=== PATIENT | female | born 1940 | race Caucasian/White ===

== ENCOUNTER → 2016-04-20 | Outpatient (CLI) | payer BC ==
[~2016-04-20] MED LIST: ACET-1256 PO; AMOX250C3 PO; ASPCH81 PO; ATOR-26 PO; CHOL100010 PO; DOCU100C PO; FOLI1TAB7 PO; FURO-85 PO; GABA-112 PO; ISOS60TA25 PO; LISI-461 PO; METH2.5T PO; METO50TA7 PO; MULT-280 PO; NITR0.4S UT; PRLSR20 PO; SYN75 PO
[2016-04-20 12:32] LABS: BASO % 0.2 %; BASO ABS # 0.01 K/uL (0-0.2); COMPLETE YES; HEMATOCRIT 35.6 % (37-47); IG% 0.2 %; LYMPH % 29.7 %; LYMPH ABS # 1.25 K/uL (1.2-3.4); MEAN CELL VOLUME 97.3 fL (80-100); MEAN CORPUSCULAR HEMOGLOBIN 33.6 pg (25-34); MEAN CORPUSCULAR HGB CONC 34.6 g/dl (32-36); MEAN PLATELET VOLUME 9.2 fL (7.4-10.4); MONO % 7.8 %; NEUT % 61.1 %; PLATELET COUNT 190 K/uL (130-400); RED BLOOD COUNT 3.66 M/uL (4.2-5.4); WHITE BLOOD COUNT 4.21 K/uL (4.8-10.8)
[2016-04-20 17:52] LABS: BLOOD UREA NITROGEN 17 mg/dl (7-18); BUN/CREATININE RATIO 16.8 (10-20); CARBON DIOXIDE 27 mmol/L (21-32); CHLORIDE 106 mmol/L (98-107); CHOLESTEROL 150 mg/dl (0-200); CHOLESTEROL/HDL RATIO 3.2; GLUCOSE 82 mg/dl (70-99); HDL CHOLESTEROL 47 mg/dl; LDL CHOLESTEROL CALCULATED 74 mg/dl; POTASSIUM 3.9 mmol/L (3.5-5.1); SODIUM 144 mmol/L (136-145); TRIGLYCERIDES 147 mg/dl (0-150); VERY LOW DENSITY LIPOPROT CALC 29 mg/dl
== END | disposition home or self-care (01) ==
LOC: C.LABPBG 11:11
PROVIDERS: ATTEND Internal Medicine Rheumatology
DX: M06.9 Rheumatoid arthritis, unspecified (principal); Z79.899 Other long term (current) drug therapy; E78.5 Hyperlipidemia, unspecified; D72.819 Decreased white blood cell count, unspecified; I10 Essential (primary) hypertension; E03.9 Hypothyroidism, unspecified; E55.9 Vitamin D deficiency, unspecified; D64.9 Anemia, unspecified

== ENCOUNTER → 2016-06-23 | Outpatient (CLI) | payer BC ==
--- NOTE | 2016-06-23 12:59 | DIAGNOSTIC IMAGING REPORT ---
EXAMINATION: PELVIC ULTRASOUND CLINICAL HISTORY: OVARIAN CYSTS, 6MOS F/U COMPARISON STUDY: 12/24/2015 FINDINGS: The uterus measured 6.8 x 1.6 x 3.2 cm. The endometrial stripe measured 3 mm. There is trace fluid within the endometrial cavity. There is a 36 x 25 x 23 mm cystic lesion within the right adnexa, likely ovarian. This appears minimally larger than on the prior study. The left was nonvisualized. There is no ultrasonographic evidence of ovarian torsion. It should be noted that ovarian torsion can be present with normal Doppler ultrasonographic findings. There was no evidence of pathologic free pelvic fluid. IMPRESSION: 1. Slight interval increase in the 36 x 25 x 23 mm cystic right adnexal lesion, likely ovarian. There is no mural nodularity or significant septation. 2. Nonvisualization of the left ovary Electronically signed by: Nasir Bae M.D. 06/23/2016 12:57 PM Dictated Date/Time: 06/23/2016 12:54 PM
== END | disposition home or self-care (01) ==
LOC: C.ULTRBC 12:03
PROVIDERS: ATTEND Physician Assistant Medical
DX: N83.209 Unspecified ovarian cyst, unspecified side (principal)

== ENCOUNTER → 2016-07-17 | Outpatient (CLI) | payer BC ==
[2016-07-17 12:12] LABS: BASO % 0.4 %; BASO ABS # 0.02 K/uL (0-0.2); COMPLETE YES; EOS % 1.2 %; HEMATOCRIT 36.6 % (37-47); IG% 0.2 %; LYMPH % 26.4 %; MEAN CELL VOLUME 100.8 fL (80-100); MEAN CORPUSCULAR HEMOGLOBIN 33.9 pg (25-34); MEAN CORPUSCULAR HGB CONC 33.6 g/dl (32-36); MEAN PLATELET VOLUME 9.3 fL (7.4-10.4); MONO % 7.1 %; NEUT % 64.7 %; PLATELET COUNT 204 K/uL (130-400); RED BLOOD COUNT 3.63 M/uL (4.2-5.4); WHITE BLOOD COUNT 4.92 K/uL (4.8-10.8)
[2016-07-17 13:53] LABS: ALT/SGPT 25 U/L (12-78)
[2016-07-17 13:56] LABS: ALKALINE PHOSPHATASE 102 U/L (45-117); AST/SGOT 20 U/L (15-37)
== END | disposition home or self-care (01) ==
LOC: C.LABPBG 10:34
PROVIDERS: ATTEND Internal Medicine Geriatric Medicine
DX: M06.9 Rheumatoid arthritis, unspecified (principal); Z79.899 Other long term (current) drug therapy; D64.9 Anemia, unspecified

== ENCOUNTER → 2016-08-03 | Outpatient (CLI) | payer BC | END | disposition home or self-care (01) | LOC: C.LABPBG 12:46 | PROVIDERS: ATTEND Obstetrics & Gynecology | DX: N83.209 Unspecified ovarian cyst, unspecified side (principal) ==

== ENCOUNTER → 2016-08-05 | Outpatient (CLI) | payer BC | END | disposition home or self-care (01) | LOC: C.PAPS 18:19 | PROVIDERS: ATTEND Obstetrics & Gynecology | DX: Z01.419 Encounter for gynecological examination (general) (routine) without abnormal findings (principal) ==

== ENCOUNTER → 2016-08-31 | Outpatient (CLI) | payer BC ==
[2016-08-31 12:11] LABS: BASO % 0.2 %; BASO ABS # 0.01 K/uL (0-0.2); COMPLETE YES; HEMATOCRIT 35.9 % (37-47); IG% 0.2 %; LYMPH % 24.4 %; LYMPH ABS # 1.25 K/uL (1.2-3.4); MEAN CELL VOLUME 101.1 fL (80-100); MEAN CORPUSCULAR HEMOGLOBIN 34.1 pg (25-34); MEAN CORPUSCULAR HGB CONC 33.7 g/dl (32-36); MEAN PLATELET VOLUME 9.2 fL (7.4-10.4); MONO % 9.6 %; NEUT % 64.6 %; PLATELET COUNT 170 K/uL (130-400); RED BLOOD COUNT 3.55 M/uL (4.2-5.4); WHITE BLOOD COUNT 5.13 K/uL (4.8-10.8)
[2016-08-31 12:53] LABS: ALT/SGPT 27 U/L (12-78)
[2016-08-31 12:55] LABS: ALKALINE PHOSPHATASE 94 U/L (45-117); AST/SGOT 19 U/L (15-37)
== END | disposition home or self-care (01) ==
LOC: C.LAB1850 11:17
PROVIDERS: ATTEND Internal Medicine Rheumatology
DX: M06.9 Rheumatoid arthritis, unspecified (principal); M25.512 Pain in left shoulder; Z79.899 Other long term (current) drug therapy

== ENCOUNTER 2016-11-19 22:40 | Emergency (ER) | payer BC ==
[~2016-11-19] VITALS: Ht 170.2 cm; Wt 98.7 kg
[2016-11-19 23:20] VITALS: TEMP 36.8; Ht 170.2 cm; Wt 98.7 kg
--- NOTE | 2016-11-20 02:17 | EMERGENCY ROOM VISIT NOTE ---
ED Visit Note First contact with patient: 23:32 I saw this patient in conjunction with Agnieszka Vázquez PA-C. I agree with her decision making and treatment plan.
--- NOTE | 2016-11-20 02:24 | EMERGENCY ROOM VISIT NOTE ---
History First contact with patient: 23:32 Chief Complaint: FALL Stated Complaint: FALL, HIT HEAD,HEADACHE, NOSE SORE, L FOOT PAIN History of Present Illness The patient is a 76 year old female who presents to the Emergency Room with complaints of a fall. The patient states that she woke up from bed to go to the bathroom and tripped and fell, striking her face on her dresser. She also reports pain in the left arm and left foot. She reports the fall was mechanical and not associated with dizziness or lightheadedness. She rates her discomfort a 7/10. There was no loss of consciousness. The fall happened approximately 20 hours ago. Review of Systems A complete 10 point review of systems was reviewed with the patient with pertinent positives and negatives as per history of present illness. All else were negative. Social History Smoking Status: Never Smoker Marital Status: Current/Historical Medications Scheduled Acetaminophen (Tylenol), 1,000 MG PO TID Amoxicillin (Amoxil), 125 MG PO PRN UD Aspirin (Aspirin Tab-Chewable *), 81 MG PO DAILY Atorvastatin (Lipitor), 80 MG PO DAILY Cholecalciferol (Vitamin D), 2,000 INTER.UNIT PO DAILY Folic Acid (Folvite), 1 MG PO DAILY Furosemide (Lasix), 40 MG PO DAILY Gabapentin (Neurontin), 100 MG PO TID Isosorbide Mononitrate Ext Rel (Imdur Ext Rel), 60 MG PO QAM Levothyroxine (Synthroid *), 0.075 MG PO DAILY Lisinopril (Zestril), 10 MG PO DAILY Methotrexate (Methotrexate), 7 TABS PO WK Metoprolol Succ (Toprol Xl) (Toprol-Xl), 50 MG PO BID Multiple Vitamins W/ Minerals (Womens Multivitamin Plus), 1 TAB PO DAILY Nitroglycerin (Nitrostat), 0.4 MG UT PRN Omeprazole (Prilosec), 20 MG PO DAILY Scheduled PRN Docusate Sodium (Stool Softener), 100 MG PO DAILY PRN for Constipation Physical Exam Vital Signs Date Time Temp Pulse Resp B/P (MAP) Pulse Ox O2 Delivery O2 Flow Rate FiO2 11/20/16 02:39 78 145/88 97 11/19/16 23:20 36.8 104 20 138/84 96 Room Air Physical Exam VITALS: Vitals are noted on the nurse's note and reviewed by myself. Vital signs stable. GENERAL: This is a 76-year-old female, in no acute distress, nondiaphoretic, well-developed well-nourished. SKIN: There are abrasions to the right forehead and nose. HEAD: Normocephalic atraumatic. EARS: External auditory canals clear, tympanic membranes pearly juan without erythema or effusion bilaterally. No hemotympanum. EYES: Pupils equal round and reactive to light and accommodation. Conjunctivae without injection, sclerae without icterus. Extraocular movements intact. NECK: Supple without nuchal rigidity. Cervical spine is nontender. HEART: Regular rate and rhythm without murmurs gallops or rubs. LUNGS: Clear to auscultation bilaterally without wheezes, rales or rhonchi. MUSCULOSKELETAL: There is tenderness to palpation of the anterior left shoulder , left forearm and left foot. There is bruising to the left first MTP. Otherwise no ecchymosis, edema or erythema. NEURO: Patient was alert and oriented to person place and time. Normal sensation to light and sharp touch. No focal neurological deficits. Medical Decision & Procedures ER Provider Diagnostic Interpretation: CT HEAD: No intracranial hemorrhage or skull fracture. Mild extracranial soft tissue swelling. Involutional changes with small vessel disease. Tiny dystrophic calcifications Cataract surgery. CT C SPINE: No fracture or malalignment. Cervical spondylosis. Radiologist: Tylor Cam MD LEFT SHOULDER X-RAY: Degenerative changes. No acute fractures or dislocations. LEFT FOREARM X-RAY: No acute fractures. LEFT FOOT X-RAY: No acute fractures or dislocations. Medical Decision Differential diagnosis includes fracture, contusion, dislocation, sprain, among others. The patient was evaluated as above. Multiple imaging studies were performed as above. There were no obvious fractures identified on x-rays. CT of the head and neck were negative for acute findings. Patient was reassured and instructed to follow-up with her primary care provider. She was placed in a postoperative shoe. She verbalized understanding of my assessment and treatment plan and was discharged home in good condition. The patient was independently evaluated by Dr. Dong, ED attending physician, who agreed with my assessment and treatment plan. Medication Reconcilliation Current Medication List: was personally reviewed by me Blood Pressure Screening Patient's blood pressure: Elevated blood pressure Blood pressure disposition: Elevated BP felt to be situational Impression Primary Impression: Fall Additional Impression: Contusion of multiple sites Departure Information Dispostion Home / Self-Care Condition GOOD Referrals Royer Grace M.D. (PCP) Patient Instructions My [facility] Additional Instructions For pain control, you can use the following itdx-lqy-vonoyza medicines (if >12 yo): - Regular strength (325mg/tab) Tylenol (acetaminophen) 2 tabs every 4-6 hours as needed. Do not exceed 12 tablets in a 24 hour period. Avoid taking more than 4 grams (4000 mg) of Tylenol per day. This includes any other sources of acetaminophen you may take on a regular basis. - Regular strength (200 mg/tab) Advil (ibuprofen) 1-2 tabs every 4-6 hours as needed. Do not exceed a dose of 3200 mg per day. Apply ice to the areas of pain and bruising. Wear the postoperative shoe as needed for foot pain and difficulty walking. Follow-up with your primary care provider within one week. Return here for any worsening or new/concerning symptoms. Problem Qualifiers Primary Impression: Fall Encounter type: initial encounter Qualified Codes: W19.XXXA - Unspecified fall, initial encounter
[2016-11-20 02:39] VITALS: BP 145/88; PULSE 78; O2SAT 97
--- NOTE | 2016-11-20 06:32 | DIAGNOSTIC IMAGING REPORT ---
CT OF THE CERVICAL SPINE CLINICAL HISTORY: Neck pain status post trauma COMPARISON STUDY: No previous studies for comparison. CT DOSE: TECHNIQUE: CT scan of the cervical spine was performed from the skull base to the thoracic inlet. Images are reviewed in the axial, sagittal, and coronal planes. IV contrast was not administered for this examination. A dose lowering technique was utilized adhering to the principles of ALARA. FINDINGS: The visualized portions of the lung apices reveal no evidence of pneumothorax. The prevertebral soft tissues are normal. No fractures or subluxations are visualized. There are moderately advanced multilevel degenerative changes IMPRESSION: No evidence of acute fracture or traumatic subluxation. Electronically signed by: Nasir Bae M.D. 11/20/2016 6:31 AM Dictated Date/Time: 11/20/2016 6:29 AM
--- NOTE | 2016-11-20 06:49 | DIAGNOSTIC IMAGING REPORT ---
L SHOULDER MIN 2 VIEWS ROUTINE CLINICAL HISTORY: Left shoulder pain status post trauma COMPARISON: None. DISCUSSION: No acute fractures or dislocations are visualized. There is narrowing of the humeral acromial distance suggesting chronic rotator cuff tear/degeneration. IMPRESSION: 1. No acute fractures 2. Radiographic evidence of chronic rotator cuff tear/degeneration Electronically signed by: Nasir Bae M.D. 11/20/2016 6:48 AM Dictated Date/Time: 11/20/2016 6:47 AM
--- NOTE | 2016-11-20 06:50 | DIAGNOSTIC IMAGING REPORT ---
L FOREARM 2 VIEWS ROUTINE CLINICAL HISTORY: Left forearm pain status post trauma COMPARISON: None. DISCUSSION: No acute fractures are visualized. There are calcifications the region triangle fibrocartilage. There are multiple soft tissue calcifications within the forearm. IMPRESSION: No acute fractures identified. Electronically signed by: Nasir Bae M.D. 11/20/2016 6:49 AM Dictated Date/Time: 11/20/2016 6:48 AM
--- NOTE | 2016-11-20 06:51 | DIAGNOSTIC IMAGING REPORT ---
L FOOT MIN 3 VIEWS ROUTINE CLINICAL HISTORY: Left foot pain status post trauma COMPARISON: None. DISCUSSION: The bones are osteopenic. There are vascular calcifications present. There is a hallux valgus deformity. No acute fractures or subluxations are visualized. IMPRESSION: No acute fractures or subluxations identified. Electronically signed by: Nasir Bae M.D. 11/20/2016 6:50 AM Dictated Date/Time: 11/20/2016 6:49 AM
--- NOTE | 2016-11-20 07:04 | DIAGNOSTIC IMAGING REPORT ---
CT SCAN OF THE BRAIN WITHOUT IV CONTRAST CLINICAL HISTORY: Fall with head injury. COMPARISON STUDY: CT of the brain dated 03/13/2009. TECHNIQUE: Unenhanced axial CT scan of the brain is performed from the vertex to the skull base. CT DOSE: 863.52 mGy.cm FINDINGS: Brain parenchyma: There are age-related involutional changes noting qycb-gc-qxehsonn patchy subcortical and periventricular microangiopathic change. There is no hemorrhage, mass effect, or evidence of acute territorial ischemia by CT criteria. Daily-white matter is preserved. No extra-axial fluid collection is seen. Ventricles, sulci, cisterns: Prominent secondary to involutional change. Intracranial vasculature: There is atherosclerotic calcification of the cavernous carotid and vertebral arteries. Calvarium: The skeletal structures are osteopenic. There is no depressed calvarial fracture. Sinuses and mastoids: The visualized paranasal sinuses are clear. The mastoid air cells are well pneumatized. Orbits: The bony orbits are grossly intact. There are bilateral ocular lens implants. IMPRESSION: There is no hemorrhage, mass effect, or evidence of acute territorial ischemia by CT criteria. Electronically signed by: Lebron Baron M.D. 11/20/2016 7:03 AM Dictated Date/Time: 11/20/2016 7:01 AM
== END 2016-11-20 02:40 | disposition home or self-care (01) ==
LOC: C.EDB 22:42 → C.EDD 11-20 02:40
DX: T14.8 Other injury of unspecified body region (principal); S00.31XA Abrasion of nose, initial encounter; S00.81XA Abrasion of other part of head, initial encounter; R42 Dizziness and giddiness; Z79.82 Long term (current) use of aspirin; Z79.899 Other long term (current) drug therapy; W01.190A Fall on same level from slipping, tripping and stumbling with subsequent striking against furniture, initial encounter

== ENCOUNTER → 2016-12-17 | Outpatient (CLI) | payer BC | END | disposition home or self-care (01) | LOC: C.MAMM 11:13 | PROVIDERS: ATTEND Internal Medicine Geriatric Medicine | DX: M19.90 Unspecified osteoarthritis, unspecified site (principal); M81.8 Other osteoporosis without current pathological fracture; M85.851 Other specified disorders of bone density and structure, right thigh; M85.839 Other specified disorders of bone density and structure, unspecified forearm ==

== ENCOUNTER → 2017-01-26 | Outpatient (CLI) | payer BC ==
[~2017-01-26] MED LIST changes: -GABA-112 PO
--- NOTE | 2017-01-27 13:43 | MAMMOGRAPHY REPORT ---
BILATERAL DIGITAL SCREENING MAMMOGRAM TOMOSYNTHESIS WITH CAD: 01/26/2017 CLINICAL HISTORY: Routine screening. During the patient's screening exam appointment, she reported a new lump in the anterior left breast and a triangular skin sticker was placed in the area of concern prior to mammography. TECHNIQUE: Bilateral breast tomosynthesis in addition to standard 2D mammography was performed. Curre nt study was also evaluated with a Computer Aided Detection (CAD) system. COMPARISON: Comparison is made to exams dated: 01/18/2015 mammogram, 01/17/2014 mammogram, 3 mammogram, 12/31/2011 mammogram, 12/15/2010 mammogram, and 11/11/2009 mammogram - [facility]. BREAST COMPOSITION: There are scattered areas of fibroglandular density in both breasts. FINDINGS: A triangular skin palpable marker overlies the upper outer anterior left breast, denoting t he new palpable lump pointed out by the patient. There are coarse benign calcifications in both mendy sts, with the largest conglomerate of coarse calcification in the left upper outer anterior breast me asuring 4.4 cm in maximum dimension. This could correspond to the palpable concern although complete workup for a new palpable lump is mammogram plus ultrasound. Therefore, additional targeted ultraso und and possible additional mammographic views are recommended for the new palpable concern in the le ft breast. No other suspicious mass, architectural distortion or cluster of microcalcifications is seen bilatera lly. IMPRESSION: ACR BI-RADS CATEGORY 0: INCOMPLETE EVALUATION: NEED ADDITIONAL IMAGING EVALUATION The bilateral mammograms are stable, with benign coarse calcifications bilaterally. However, the pat ient reports a new palpable lump in the upper outer anterior left breast for which additional targete d ultrasound and possible additional mammographic views are recommended. The patient will be called to schedule an appointment. Approximately 10% of breast cancers are not detected with mammography. A negative mammographic report should not delay biopsy if a clinically suggestive mass is present. Nazia Easley M.D. ay/:01/26/2017 15:28:47 Director Of Construction: Roxi FERNANDEZ)(Kaylyn), [facility] letter sent: Addl Imaging 0 BI-RADS Code: ACR BI-RADS Category 0: Incomplete Evaluation: Need Additional Imaging Evaluation
== END | disposition home or self-care (01) ==
LOC: C.MAMM 11:49
PROVIDERS: ATTEND Internal Medicine Geriatric Medicine
DX: Z12.31 Encounter for screening mammogram for malignant neoplasm of breast (principal); R92.0 Mammographic microcalcification found on diagnostic imaging of breast

== ENCOUNTER → 2017-02-02 | Outpatient (CLI) | payer BC ==
--- NOTE | 2017-02-02 14:26 | MAMMOGRAPHY REPORT ---
ULTRASOUND OF LEFT BREAST: 02/02/2017 CLINICAL HISTORY: 76-year-old woman presents with a 1-1/2 week history of new hard lump in the anteri or left breast. No skin erythema or nipple discharge. Family history of breast cancer = mother and aunt. COMPARISON: Comparison is made to exams dated: 01/21/2016 mammogram, 01/18/2015 mammogram, 4 mammogram, 01/16/2013 mammogram, 12/31/2011 mammogram, and 12/15/2010 mammogram - [facility]. FINDINGS: First the left breast with evaluated with visual inspection and palpation in the area of p alpable lump pointed out by the patient. She reports an ovoid 4 cm lump in the retroareolar extendin g into the 3:00 axes of the left breast. On palpation, there is a firm 5 x 2 cm mass. On ultrasound , there is a multilobulated hypoechoic shadowing mass. The anterior/superficial borders of this shad owing mass demonstrates thick linear and curvilinear echogenic material representing calcification, a nd this corresponds to the multilobulated coarse/popcorn calcification seen in the anterior subareola r left breast mammographically. This has been present on prior mammograms dating back to at least 18 11. There is a similar somewhat smaller popcorn calcification in the anterior subareolar right breas t. For comparison purposes the right breast was palpated in a similar location and a firm mass was also identified there, which was pointed out by the patient, and so she knows this represents a benign tye cification. IMPRESSION: ACR BI-RADS CATEGORY 2: BENIGN 1. The newly identified palpable lump in the 3:00 anterior and retroareolar right breast corresponds to a benign popcorn calcification. A similar, slightly smaller coarse, popcorn calcification is als o present in the right breast, which was also pointed out to the patient. There is no targeted sonog raphic evidence of malignancy. Recommend routine screening tomosynthesis mammography in one year. Nazia Easley M.D. ay/:02/02/2017 11:03:03 Deli Slicer: Dr. Nazia Easley, [facility] letter sent: Normal 1/2 BI-RADS Code: ACR BI-RADS Category 2: Benign
== END | disposition home or self-care (01) ==
LOC: C.MAMM 10:03
PROVIDERS: ATTEND Internal Medicine Geriatric Medicine
DX: R92.1 Mammographic calcification found on diagnostic imaging of breast (principal)

== ENCOUNTER 2017-02-13 16:44 | Emergency (ER) | payer BC ==
[~2017-02-13] VITALS: Ht 170.2 cm; Wt 98.5 kg
[~2017-02-13 16:44] MED LIST changes: -FOLI1TAB7 PO; +FOLI1TAB8 PO
[2017-02-13 16:53] VITALS: O2SAT 99
[2017-02-13] MEDS ORDERED: SODIUM CHLORIDE 0.9% 1000ML 1,000 ML IV STA (16:56)
[2017-02-13] MEDS ORDERED: ONDANSETRON INJ 2 MG/ML 2 ML VIAL IV STA (16:56)
[2017-02-13] MEDS ORDERED: FAMOTIDINE 20MG/5ML IV PUSH IV STA (16:56)
[2017-02-13] MEDS ORDERED: DiphenhydrAMINE HCL 50 MG/ML VIAL IV STA (16:56)
[2017-02-13 16:59] VITALS: TEMP 36.6; Ht 170.2 cm; Wt 98.5 kg
[2017-02-13] MEDS ORDERED: OPTIRAY 320 IV PRN (17:15)
[2017-02-13] MEDS ORDERED: AMOX500C3 PO (17:19)
[2017-02-13] MEDS ORDERED: LISI5TAB PO (17:21)
[2017-02-13 17:24] LABS: BASO % 0.2 %; BASO ABS # 0.01 K/uL (0-0.2); COMPLETE YES; EOS % 0.4 %; HEMATOCRIT 38.4 % (37-47); IG% 0.2 %; LYMPH ABS # 1.31 K/uL (1.2-3.4); MEAN CELL VOLUME 98.2 fL (80-100); MEAN CORPUSCULAR HGB CONC 34.6 g/dl (32-36); MEAN PLATELET VOLUME 9.6 fL (7.4-10.4); MONO % 6.5 %; NEUT % 67.7 %; PLATELET COUNT 201 K/uL (130-400); RED BLOOD COUNT 3.91 M/uL (4.2-5.4); WHITE BLOOD COUNT 5.23 K/uL (4.8-10.8)
[2017-02-13] MEDS ORDERED: ZOLE5INJ IV (17:25)
--- NOTE | 2017-02-13 17:25 | EMERGENCY ROOM VISIT NOTE ---
History Report prepared by Bip[place]: All Bass Under the Supervision of: Dr. Sudeep Wheeler M.D. First contact with patient: 16:45 Stated Complaint: VERTIGO SX History of Present Illness The patient is a 76 year old female who presents to the Emergency Room with complaints of intermittent vomiting that began around 2330 last night. She states that her symptoms are worsened with moving her head and sitting up. The patient states that her symptoms are relieved with sitting still. The patient reports that last night she noticed if she sat up, the room would spin and she would become dizzy. She states that following these symptoms, she would become diaphoretic and clammy. The patient states that she would then become nauseous and vomit. She states that since last night, these symptoms have occurred about 6 more times. She states that she took Tylenol at 1200, but denies any relief of symptoms. The patient states that because her symptoms have not resolved, she decided to come to the ED. She reports that she takes 81 mg of Aspirin and a stool softener daily, but denies taking any medications today. The patient denies previous symptoms in the past, shortness of breath, chest pain, diarrhea , and headaches. Source of History: patient Onset: 2329 last night Position: other (global) Quality: other (global) Timing: intermittent Modifying Factors (Worsening): other (sitting up, moving head) Modifying Factors (Relieving): tylenol, other (sitting still) Associated Symptoms: + diaphoresis, + nausea, + vomiting, No headache, No chest pain, No SOB, No diarrhea Note: Associated symptoms include: dizziness. Review of Systems See HPI for pertinent positives and negatives. A total of ten systems were reviewed and were otherwise negative. Past Medical & Surgical Medical Problems: (1) Heart disease (2) Hypertension Family History Cancer Diabetes mellitus Gallbladder disease Heart disease Hypertension Lung disease Social History Smoking Status: Never Smoker Alcohol Use: none Drug Use: none Marital Status: Housing Status: lives with significant other Occupation Status: retired Current/Historical Medications Scheduled Acetaminophen (Tylenol), 1,000 MG PO TID Aspirin (Aspirin Tab-Chewable *), 81 MG PO DAILY Atorvastatin (Lipitor), 80 MG PO DAILY Cholecalciferol (Vitamin D), 2,000 INTER.UNIT PO DAILY Docusate Sodium (Stool Softener), 100 MG PO DAILY Folic Acid (Folvite), 1 MG PO BID Furosemide (Lasix), 20 MG PO DAILY Isosorbide Mononitrate Ext Rel (Imdur Ext Rel), 60 MG PO QAM Levothyroxine (Synthroid *), 0.075 MG PO DAILY Lisinopril (Prinivil), 1 TAB PO DAILY Methotrexate (Methotrexate), 12.5 TABS PO WK Metoprolol Succ (Toprol Xl) (Toprol-Xl), 50 MG PO BID Multiple Vitamins W/ Minerals (Womens Multivitamin Plus), 1 TAB PO DAILY Nitroglycerin (Nitrostat), 0.4 MG UT PRN Omeprazole (Prilosec), 20 MG PO DAILY Ondasetron Odt (Zofran Odt), 4 MG SL Q6H Zoledronic Acid (Reclast), 5 MG IV YEARLY Scheduled PRN Amoxicillin (Amoxil), 1 CAP PO BID PRN for CELLULITIS Meclizine Hcl (Meclizine Hcl), 25 MG PO TID PRN for Dizziness Allergies Coded Allergies: Gabapentin (Verified Allergy, Severe, SEVERE ENTIRE BODY SWELLING, DIFFICULTY BREATHING, 02/13/17) HARD TO AWAKEN Codeine (Verified Allergy, Unknown, 02/13/17) Morphine (Verified Adverse Reaction, Mild, UPSET STOMACH, PT STATES SHE WON'T TAKE 01/25/07, 02/13/17) Physical Exam Vital Signs Date Time Temp Pulse Resp B/P (MAP) Pulse Ox O2 Delivery O2 Flow Rate FiO2 02/13/17 20:54 99 18 149/95 97 02/13/17 19:15 78 02/13/17 19:11 77 18 114/51 98 Room Air 02/13/17 18:29 87 17 177/89 98 02/13/17 16:59 36.6 90 12 149/98 100 Room Air 02/13/17 16:59 78 16 98 02/13/17 16:53 99 Room Air 02/13/17 16:49 149/98 Physical Exam GENERAL: Awake, alert, uncomfortable-appearing, in no distress, nauseated and vomiting. HENT: Normocephalic, atraumatic. Oropharynx unremarkable. EYES: Normal conjunctiva. Sclera non-icteric. NECK: Supple. No nuchal rigidity. FROM. No JVD. RESPIRATORY: Clear to auscultation. CARDIAC: Regular rate, normal rhythm. Extremities warm and well perfused. Pulses equal. ABDOMEN: Soft, non-distended. No tenderness to palpation. No rebound or guarding. No masses. RECTAL: Deferred. MUSCULOSKELETAL: Chest examination reveals no tenderness. The back is symmetrical on inspection without obvious abnormality. There is no CVA tenderness to palpation. No joint edema. LOWER EXTREMITIES: Calves are equal size bilaterally and non-tender. No edema. No discoloration. NEURO: Normal sensorium. No sensory or motor deficits noted. normal cerebellar function with [id number], alternating palms, [id number]. SKIN: No rash or jaundice noted. Medical Decision & Procedures ER Provider Diagnostic Interpretation: Radiology results as stated below per my review and radiologist interpretation: CHEST ONE VIEW PORTABLE HISTORY: Generalized abdominal pain. COMPARISON: Chest 09/23/2009. FINDINGS: Bibasilar interstitial thickening is not significantly changed. This is likely chronic. No new focal lung consolidations to suggest pneumonia. No evidence for pulmonary edema. The heart is borderline enlarged. This remains unchanged. No pleural effusions. No pneumothorax. IMPRESSION: No significant change compared to the prior study. No acute process. Chronic bibasilar interstitial thickening persists. Electronically signed by: Venu Wallace M.D. 02/13/2017 5:39 PM Dictated Date/Time: 02/13/2017 5:37 PM HEAD CTA HISTORY: Vertigo. TECHNIQUE: Multiaxial CT images of the head were performed both before and after the intravenous administration of contrast to evaluate the major cerebral vessels. Maximum intensity projection images were also obtained. A dose lowering technique was utilized adhering to the principles of ALARA. COMPARISON: None. FINDINGS: There is no mass, hematoma, midline shift, or acute infarct. Visualized intracranial internal carotid arteries, distal vertebral arteries, and basilar artery are widely patent. There is no significant stenosis, occlusion, or aneurysm seen within the bilateral ACAs, MCAs, or director digital strategy. Mild atrophy and microvascular ischemic changes. Moderate calcified plaque within the bilateral carotid siphons. IMPRESSION: No significant stenosis, occlusion, or aneurysm within the [place]. No acute infarct identified. Electronically signed by: Venu Wallace M.D. 02/13/2017 6:13 PM Dictated Date/Time: 02/13/2017 6:08 PM NECK CTA HISTORY: Vertigo. TECHNIQUE: Multiaxial CT images of the neck were performed following the intravenous administration of contrast to evaluate the major cervical vessels. Maximum intensity projection images were also obtained. All measurements were calculated based on NASCET criteria. A dose lowering technique was utilized adhering to the principles of ALARA. COMPARISON STUDY: None. FINDINGS: The aortic arch and proximal great vessels are widely patent. The bilateral vertebral arteries and right internal carotid artery are widely patent. There is up to 60-70% stenosis seen within the distal 8 mm of the right common carotid artery. There is a 3 cm segment of the distal left common carotid artery and proximal left internal carotid artery which demonstrates multifocal areas of 60-70% stenosis. The mid to distal left internal carotid artery is patent. Bilateral internal jugular veins appear patent. IMPRESSION: 1. There is 60-70% stenosis within the distal 8 mm of the right common carotid artery. 2. There is a 3 cm segment of the distal left common carotid artery and proximal left internal carotid artery which demonstrate multifocal areas of 60-70% stenosis. 3. The bilateral vertebral arteries are patent. Electronically signed by: Venu Wallace M.D. 02/13/2017 6:20 PM Dictated Date/Time: 02/13/2017 6:16 PM Laboratory Results 02/13/17 16:10 Red Blood Count 3.91, Mean Corpuscular Volume 98.2, Mean Corpuscular Hemoglobin 34.0, Mean Corpuscular Hemoglobin Concent 34.6, Mean Platelet Volume 9.6, Neutrophils (%) (Auto) 67.7, Lymphocytes (%) (Auto) 25.0, Monocytes (%) (Auto) 6.5, Eosinophils (%) (Auto) 0.4, Basophils (%) (Auto) 0.2, Neutrophils # (Auto) 3.54, Lymphocytes # (Auto) 1.31, Monocytes # (Auto) 0.34, Eosinophils # (Auto) 0.02, Basophils # (Auto) 0.01 02/13/17 16:10 Test 02/13/17 16:10 02/13/17 18:30 White Blood Count 5.23 K/uL (4.8-10.8) Red Blood Count 3.91 M/uL (4.2-5.4) Hemoglobin 13.3 g/dL (12.0-16.0) Hematocrit 38.4 % (37-47) Mean Corpuscular Volume 98.2 fL (80-100) Mean Corpuscular Hemoglobin 34.0 pg (25-34) Mean Corpuscular Hemoglobin Concent 34.6 g/dl (32-36) Platelet Count 201 K/uL (130-400) Mean Platelet Volume 9.6 fL (7.4-10.4) Neutrophils (%) (Auto) 67.7 % Lymphocytes (%) (Auto) 25.0 % Monocytes (%) (Auto) 6.5 % Eosinophils (%) (Auto) 0.4 % Basophils (%) (Auto) 0.2 % Neutrophils # (Auto) 3.54 K/uL (1.4-6.5) Lymphocytes # (Auto) 1.31 K/uL (1.2-3.4) Monocytes # (Auto) 0.34 K/uL (0.11-0.59) Eosinophils # (Auto) 0.02 K/uL (0-0.5) Basophils # (Auto) 0.01 K/uL (0-0.2) RDW Standard Deviation 51.4 fL (36.4-46.3) RDW Coefficient of Variation 14.6 % (11.5-14.5) Immature Granulocyte % (Auto) 0.2 % Immature Granulocyte # (Auto) 0.01 K/uL (0.00-0.02) Anion Gap 8.0 mmol/L (3-11) Est Creatinine Clear Calc Drug Dose 65.8 ml/min Estimated GFR () 73.5 Estimated GFR (Non- 63.4 BUN/Creatinine Ratio 12.2 (10-20) Calcium Level 9.5 mg/dl (8.5-10.1) Total Bilirubin 0.5 mg/dl (0.2-1) Direct Bilirubin 0.1 mg/dl (0-0.2) Aspartate Amino Transf (AST/SGOT) 25 U/L (15-37) Alanine Aminotransferase (ALT/SGPT) 26 U/L (12-78) Alkaline Phosphatase 99 U/L (45-117) Troponin I < 0.015 ng/ml (0-0.045) Pro-B-Type Natriuretic Peptide 373 pg/ml (0-900) Total Protein 7.6 gm/dl (6.4-8.2) Albumin 4.2 gm/dl (3.4-5.0) Lipase 118 U/L (73-393) Urine Color YELLOW Urine Appearance CLEAR (CLEAR) Urine pH 8.0 (4.5-7.5) Urine Specific [place] 1.030 (1.000-1.030) Urine Protein NEG (NEG) Urine Glucose (UA) NEG (NEG) Urine Ketones NEG (NEG) Urine Occult Blood NEG (NEG) Urine Nitrite NEG (NEG) Urine Bilirubin NEG (NEG) Urine Urobilinogen NEG (NEG) Urine Leukocyte Esterase SMALL (NEG) Urine WBC (Auto) 1-5 /hpf (0-5) Urine RBC (Auto) 0-4 /hpf (0-4) Urine Hyaline Casts (Auto) 0 /lpf (0-5) Urine Epithelial Cells (Auto) >30 /lpf (0-5) Urine Bacteria (Auto) NEG (NEG) Laboratory results reviewed by me Medications Administered Medications (Trade) Dose Ordered Sig/Lyn Route Start Time Stop Time Status Last Admin Dose Admin Sodium Chloride 1,000 ml @ 125 mls/hr Q8H STAT IV 02/13/17 16:56 02/13/17 21:31 DC 02/13/17 17:15 125 MLS/HR Ondansetron HCl (Zofran Inj) 4 mg NOW STAT IV 02/13/17 16:56 02/13/17 17:01 DC 02/13/17 17:15 4 MG Diphenhydramine HCl (Benadryl Inj) 25 mg NOW STAT IV 02/13/17 16:56 02/13/17 17:01 DC 02/13/17 17:15 25 MG Famotidine (Pepcid 20mg Iv Push) 20 mg NOW STAT IV 02/13/17 16:56 02/13/17 17:01 DC 02/13/17 17:15 20 MG Meclizine HCl (Antivert Tab) 50 mg NOW STAT PO 02/13/17 18:31 02/13/17 18:34 DC 02/13/17 18:53 50 MG ECG Indication: vomiting Rate (beats per minute): 78 Rhythm: sinus rhythm Findings: 1st degree AV block, no acute ischemic change, other (Normal axis) Comparison ECG Date: 09/23/09 Change: no significant change ED Course 1646: The patient was evaluated in room B10. A complete history and physical exam was performed. 1828: I reevaluated the patient and she is doing better but is still unsteady. 2020: I reevaluated the patient. Discussed results and discharge instructions: She verbalized understanding and agreement. The patient is ready for discharge. Medical Decision I reviewed the patient's past medical history, medications, and the nursing notes as described above. The patient's presentation and history were concerning for Peripheral v central vertigo, dehydration, electrolyte abnormality, gastroenteritis, gastritis, ACS, CHF, pneumonia, bronchitis, and arrhythmia. The patient is a 76-year-old woman presents to emergency department with vertigo and nausea vomiting since last night around 11:30 and woke up this morning with persistent symptoms per history of present illness. While the patient is uncomfortable but in no acute distress, afebrile with stable vital signs. Neurologically intact with no nystagmus however reproducible vertigo when sitting up. Chest x-ray unremarkable. Labs unremarkable including WBC and creatinine within normal limits. UA negative for infection. CTA of head and neck negative for any critical large vessel stenosis infarct. Patient was treated with IV fluids, Benadryl, meclizine with significant improvement in her symptoms able to ambulate at baseline. Thus, discussed with the patient that given her prolonged symptoms and negative CTA it is unlikely that her symptoms are related to a central cause such as stroke. However MRI would be the definitive test to rule this out. MRI initially ordered however unit technician not in-house and given the patient's improvement symptoms deferred at this time. Patient prefers to go home at this time given her improvement and if symptoms return she will come back to emergency department. Findings and plan for follow- up reviewed with patient. Patient agreeable and d/c'd per discharge instructions. Medication Reconcilliation Current Medication List: was personally reviewed by me Blood Pressure Screening Patient's blood pressure: Elevated blood pressure Blood pressure disposition: Referred to PCP Impression Primary Impression: Vertigo Scribe Attestation The scribe's documentation has been prepared under my direction and personally reviewed by me in its entirety. I confirm that the note above accurately reflects all work, treatment, procedures, and medical decision making performed by me. Departure Information Dispostion Home / Self-Care Prescriptions Ondasetron Odt (ZOFRAN ODT) 4 Mg Tab 4 MG SL Q6H for Nausea, #6 TAB Prov: Sudeep Wheeler M.D. 02/13/17 Meclizine Hcl (MECLIZINE HCL) 25 Mg Tab 25 MG PO TID Y for Dizziness, #21 TAB Prov: Sudeep Wheeler M.D. 02/13/17 Referrals No Doctor, Assigned (PCP) Patient Instructions ED Vertigo Unspecified, My [facility] Additional Instructions Please follow up with your primary care physician on Wednesday for re-evaluation. You likely have vertigo. Otherwise, your exam, EKG, chest xray, CT scan with contrast of your head and neck, and lab results did not show signs of an emergent condition at this time. Meclizine for vertigo as needed. Zofran for nausea as needed. Return to the emergency department for worsening symptoms as described in the accompanying instructions.
--- NOTE | 2017-02-13 17:40 | DIAGNOSTIC IMAGING REPORT ---
CHEST ONE VIEW PORTABLE HISTORY: Generalized abdominal pain. COMPARISON: Chest 09/23/2009. FINDINGS: Bibasilar interstitial thickening is not significantly changed. This is likely chronic. No new focal lung consolidations to suggest pneumonia. No evidence for pulmonary edema. The heart is borderline enlarged. This remains unchanged. No pleural effusions. No pneumothorax. IMPRESSION: No significant change compared to the prior study. No acute process. Chronic bibasilar interstitial thickening persists. Electronically signed by: Venu Wallace M.D. 02/13/2017 5:39 PM Dictated Date/Time: 02/13/2017 5:37 PM
[2017-02-13 17:42] LABS: ALT/SGPT 26 U/L (12-78); AST/SGOT 25 U/L (15-37); BLOOD UREA NITROGEN 11 mg/dl (7-18); BUN/CREATININE RATIO 12.2 (10-20); CALCIUM 9.5 mg/dl (8.5-10.1); CARBON DIOXIDE 26 mmol/L (21-32); CHLORIDE 107 mmol/L (98-107); CREATININE 0.89 mg/dl (0.60-1.20); GLUCOSE 107 mg/dl (70-99); POTASSIUM 4.1 mmol/L (3.5-5.1); SODIUM 141 mmol/L (136-145)
[2017-02-13 17:47] LABS: ALKALINE PHOSPHATASE 99 U/L (45-117)
--- NOTE | 2017-02-13 18:14 | DIAGNOSTIC IMAGING REPORT ---
HEAD CTA HISTORY: Vertigo. TECHNIQUE: Multiaxial CT images of the head were performed both before and after the intravenous administration of contrast to evaluate the major cerebral vessels. Maximum intensity projection images were also obtained. A dose lowering technique was utilized adhering to the principles of ALARA. COMPARISON: None. FINDINGS: There is no mass, hematoma, midline shift, or acute infarct. Visualized intracranial internal carotid arteries, distal vertebral arteries, and basilar artery are widely patent. There is no significant stenosis, occlusion, or aneurysm seen within the bilateral ACAs, MCAs, or pharmacy resident. Mild atrophy and microvascular ischemic changes. Moderate calcified plaque within the bilateral carotid siphons. IMPRESSION: No significant stenosis, occlusion, or aneurysm within the [place]. No acute infarct identified. Electronically signed by: Venu Wallace M.D. 02/13/2017 6:13 PM Dictated Date/Time: 02/13/2017 6:08 PM
--- NOTE | 2017-02-13 18:22 | DIAGNOSTIC IMAGING REPORT ---
NECK CTA HISTORY: Vertigo. TECHNIQUE: Multiaxial CT images of the neck were performed following the intravenous administration of contrast to evaluate the major cervical vessels. Maximum intensity projection images were also obtained. All measurements were calculated based on NASCET criteria. A dose lowering technique was utilized adhering to the principles of ALARA. COMPARISON STUDY: None. FINDINGS: The aortic arch and proximal great vessels are widely patent. The bilateral vertebral arteries and right internal carotid artery are widely patent. There is up to 60-70% stenosis seen within the distal 8 mm of the right common carotid artery. There is a 3 cm segment of the distal left common carotid artery and proximal left internal carotid artery which demonstrates multifocal areas of 60-70% stenosis. The mid to distal left internal carotid artery is patent. Bilateral internal jugular veins appear patent. IMPRESSION: 1. There is 60-70% stenosis within the distal 8 mm of the right common carotid artery. 2. There is a 3 cm segment of the distal left common carotid artery and proximal left internal carotid artery which demonstrate multifocal areas of 60-70% stenosis. 3. The bilateral vertebral arteries are patent. Electronically signed by: Venu Wallace M.D. 02/13/2017 6:20 PM Dictated Date/Time: 02/13/2017 6:16 PM
[2017-02-13] MEDS ORDERED: MECLIZINE HCL 25 MG TAB PO STA (18:31)
[2017-02-13 18:49] LABS: URINE APPEARANCE CLEAR (CLEAR); URINE BILIRUBIN NEG (NEG); URINE COLOR YELLOW; URINE EPITHELIAL CELL AUTO >30 /lpf (0-5); URINE NITRITE NEG (NEG); UROBILINOGEN NEG (NEG); ZZUR CULT IF INDIC CLEAN CATCH NO
[2017-02-13 18:50] LABS: MANUAL MICROSCOPIC REQUIRED? NO; REVIEW REQ? NO
[2017-02-13] MEDS ORDERED: ONDA4TAB10 SL (20:28)
[2017-02-13] MEDS ORDERED: MECL1TAB42 PO (20:28)
[2017-02-13 20:54] VITALS: BP 149/95; PULSE 99; O2SAT 97
== END 2017-02-13 20:55 | disposition home or self-care (01) ==
LOC: EDBD 16:44 → C.EDB 16:45
DX: R42 Dizziness and giddiness (principal); I11.9 Hypertensive heart disease without heart failure; Z79.82 Long term (current) use of aspirin; Z80.9 Family history of malignant neoplasm, unspecified; Z83.3 Family history of diabetes mellitus; Z83.79 Family history of other diseases of the digestive system; Z82.49 Family history of ischemic heart disease and other diseases of the circulatory system

== ENCOUNTER → 2017-09-27 | Outpatient (CLI) | payer BC ==
[~2017-09-27] MED LIST changes: -AMOX250C3 PO; +AMOX500C3 PO; -LISI-461 PO; +LISI5TAB PO; -METO50TA7 PO; +METO50TA8 PO; +ZOLE5INJ IV
[2017-09-27 13:52] LABS: BASO % 0.4 %; BASO ABS # 0.02 K/uL (0-0.2); EOS % 1.3 %; EOS ABS # 0.06 K/uL (0-0.5); HEMATOCRIT 36.3 % (37-47); HEMOGLOBIN 12.1 g/dL (12.0-16.0); IG# 0.01 K/uL (0.00-0.02); LYMPH % 26.1 %; LYMPH ABS # 1.22 K/uL (1.2-3.4); MEAN CELL VOLUME 100.6 fL (80-100); MEAN CORPUSCULAR HEMOGLOBIN 33.5 pg (25-34); MEAN CORPUSCULAR HGB CONC 33.3 g/dl (32-36); MEAN PLATELET VOLUME 9.5 fL (7.4-10.4); MONO % 6.4 %; NEUT % 65.6 %; NEUT ABS # 3.07 K/uL (1.4-6.5); PLATELET COUNT 210 K/uL (130-400); RED CELL DISTRIBUTION WIDTH CV 14.5 % (11.5-14.5); RED CELL DISTRIBUTION WIDTH SD 52.9 fL (36.4-46.3); WHITE BLOOD COUNT 4.68 K/uL (4.8-10.8)
[2017-09-27 14:40] LABS: ALBUMIN 3.7 gm/dl (3.4-5.0); ALKALINE PHOSPHATASE 69 U/L (45-117); ALT/SGPT 20 U/L (12-78); AST/SGOT 19 U/L (15-37); BLOOD UREA NITROGEN 12 mg/dl (7-18); CALCIUM 8.6 mg/dl (8.5-10.1); CARBON DIOXIDE 30 mmol/L (21-32); CREATININE 0.93 mg/dl (0.60-1.20); GLUCOSE 97 mg/dl (70-99); POTASSIUM 4.2 mmol/L (3.5-5.1); SODIUM 140 mmol/L (136-145); TOTAL PROTEIN 6.8 gm/dl (6.4-8.2)
== END | disposition home or self-care (01) ==
LOC: C.LABBC 11:23
PROVIDERS: ATTEND Internal Medicine Rheumatology
DX: I10 Essential (primary) hypertension (principal); E03.9 Hypothyroidism, unspecified; M06.9 Rheumatoid arthritis, unspecified; Z79.899 Other long term (current) drug therapy; R53.83 Other fatigue

== ENCOUNTER 2017-10-09 23:10 | Emergency (ER) | payer BC ==
[~2017-10-09] VITALS: Ht 170.2 cm; Wt 91.0 kg
[2017-10-09 23:12] VITALS: TEMP 36.8; Ht 170.2 cm; Wt 91.0 kg
[2017-10-09] MEDS ORDERED: ACETAMINOPHEN 500 MG TAB PO STA (23:27)
--- NOTE | 2017-10-09 23:31 | EMERGENCY ROOM VISIT NOTE ---
History Report prepared by Bipin: Rogelio Montez Under the Supervision of: Dr. Luis Ibrahim M.D. First contact with patient: 23:18 Chief Complaint: FALL Stated Complaint: RIGHT LEG, ANKLE, HIP, FELL History of Present Illness The patient is a 77 year old female who presents to the Emergency Room with complaints of worsening right ankle pain that began after a recent fall. Patient states she was sleeping on a recliner when she then woke up to go to the bathroom. She states when she got up her right foot had "fallen asleep" and got stuck under the recliner. She states her foot then twisted under the recliner causing her to fall to her knees on a cement floor. Patient adds she has right knee "soreness". Past medical history includes a right knee replacement which was performed by Dr. Aguilera and arthritis. Patient denies taking any medications for her pain. She states she takes steroids and a low dose Aspirin. Patient denies back pain, losing consciousness, or any other injuries. Source of History: patient Onset: Recent Position: ankle (right) Timing: worsening Modifying Factors (Relieving): other (None) Associated Symptoms: No LOC, No back pain Note: Positive right knee soreness. Review of Systems See HPI for pertinent positives & negatives. A total of 6 systems reviewed and were otherwise negative. Past Medical & Surgical Medical Problems: (1) Heart disease (2) Hypertension Family History Cancer Diabetes mellitus Gallbladder disease Heart disease Hypertension Lung disease Social History Smoking Status: Never Smoker Alcohol Use: none Drug Use: none Marital Status: Housing Status: lives with significant other Occupation Status: retired Current/Historical Medications Scheduled Acetaminophen (Tylenol), 1,000 MG PO TID Aspirin (Aspirin Chewable), 81 MG PO DAILY Atorvastatin (Lipitor), 80 MG PO DAILY Cholecalciferol (Vitamin D 1000 Unit), 2,000 INTER.UNIT PO DAILY Clobetasol Propionate (Clobetasol Propionate), 1 APPLN TOP DAILY Docusate Sodium (Stool Softener), 100 MG PO DAILY Folic Acid (Folvite), 1 MG PO BID Furosemide (Furosemide), 40 MG PO DAILY Isosorbide Mononitrate Ext Rel (Imdur Ext Rel), 60 MG PO QAM Levothyroxine Sodium (Levothyroxine Sodium), 75 MCG PO DAILY Lisinopril (Lisinopril), 10 MG PO DAILY Methotrexate (Methotrexate), 7 TABS PO WK Metoprolol Tartrate (Lopressor), 50 MG PO BID Multiple Vitamins W/ Minerals (Multi For Her 50+), 1 CAP PO DAILY Omeprazole (Prilosec), 20 MG PO DAILY Zoledronic Acid (Reclast), 5 MG IV YEARLY Scheduled PRN Nitroglycerin (Nitrostat), 0.4 MG UT UD PRN for Chest Pain Allergies Coded Allergies: Gabapentin (Verified Allergy, Severe, SEVERE ENTIRE BODY SWELLING, DIFFICULTY BREATHING, 10/10/17) HARD TO AWAKEN Codeine (Verified Allergy, Unknown, 10/10/17) Morphine (Verified Adverse Reaction, Mild, UPSET STOMACH, PT STATES SHE WON'T TAKE 01/25/07, 10/10/17) Physical Exam Vital Signs Date Time Temp Pulse Resp B/P (MAP) Pulse Ox O2 Delivery O2 Flow Rate FiO2 10/10/17 00:47 86 18 132/86 95 10/09/17 23:12 36.8 99 16 147/79 97 Room Air Physical Exam GENERAL: Patient is well appearing and in moderate distress. EYES: No scleral icterus, unremarkable pupils. ENT: Mucous membranes moist, no nasal congestion. NECK: No masses appreciated, no meningismus, trachea is midline. RESPIRATORY: No dyspnea. Clear to auscultation and equal bilaterally. No wheeze , no rhonchi. CARDIOVASCULAR: Regular rate and rhythm. No murmurs, rubs, gallops appreciated. BACK: No midline tenderness, no CVA tenderness EXTREMITIES: Tenderness to palpation of the right lateral malleolus, mild tenderness of head of fibula, pain with range of motion of the right ankle otherwise normal motion all extremities, no cyanosis, no edema. NEUROLOGIC: Alert and oriented, no acute motor or sensory deficits, no focal weakness, cranial nerves grossly intact. SKIN: No rash, no jaundice, no diaphoresis. Medical Decision & Procedures ER Provider Diagnostic Interpretation: Radiology results and stated below per my review and interpretation: THREE VIEW RIGHT ANKLE X-RAY: X-ray shows distal fibula avulsion fracture, anterior talus avulsion fracture, and no dislocation. TWO VIEW TIBIA/FIBULA X-RAY: X-ray shows distal tip avulsion fracture of fibula, no dislocation, calcification subq likely chronic, and knee replacement hardware appears intact. Medications Administered Medications (Trade) Dose Ordered Sig/Lyn Route Start Time Stop Time Status Last Admin Dose Admin Acetaminophen (Tylenol Tab) 1,000 mg NOW STAT PO 10/09/17 23:27 10/09/17 23:28 DC 10/09/17 23:34 1,000 MG ED Course 2320: The patient was evaluated in room C9. A complete history and physical exam was performed. 0010: Reevaluated the patient. I discussed ankle fracture and splint care with the patient. I informed her to avoid bearing weight on the ankle. She states she has a walker at home. Patient is adamantly refusing any pain medication other than Tylenol. Patient is agreeable to calling orthopedics on Wednesday for follow-up. Discussed results and discharge instructions. She verbalized understanding and agreement. The patient is ready for discharge. Medical Decision Differential: Fracture, Dislocation, Ligamentous Injury, Effusion, amongst other pathologies entertained. Right ankle injury in fall this evening. Imaging with likely distal fibular avulsion fx as well as talus fracture. No dislocation. Declines all pain meds other than Tylenol. Splint with orthoglass. Follow up with Ortho this week. She has walker at home. No other injuries and hip/knee working without discomfort. Declines case management to discuss about further help at home or [facility]. Medication Reconcilliation Current Medication List: was personally reviewed by me Blood Pressure Screening Patient's blood pressure: Elevated blood pressure Blood pressure disposition: Elevated BP felt to be situational Impression Primary Impression: Fracture of ankle, right, closed Scribe Attestation The scribe's documentation has been prepared under my direction and personally reviewed by me in its entirety. I confirm that the note above accurately reflects all work, treatment, procedures, and medical decision making performed by me. Departure Information Dispostion Home / Self-Care Referrals Royer Grace M.D. (PCP) Pato Aguilera M.D. Patient Instructions Ankle Fx, [facility] Additional Instructions Call Orthopaedics on Wednesday to schedule follow up. If worsening pain or other concerns were are always here to help. You may rest leg on ground but avoid bearing weight for the next few days until seen by Ortho.
[2017-10-10] MEDS ORDERED: MULT1CAP7 PO (00:05)
[2017-10-10] MEDS ORDERED: LISI-461 PO (00:07)
[2017-10-10] MEDS ORDERED: LEVO75TA5 PO (00:08)
[2017-10-10] MEDS ORDERED: CHOL100027 PO (00:08)
[2017-10-10] MEDS ORDERED: ASPCH81X PO (00:08)
[2017-10-10] MEDS ORDERED: METO-551 PO (00:09)
[2017-10-10] MEDS ORDERED: LSX80 PO (00:10)
[2017-10-10] MEDS ORDERED: NF34 TOP (00:10)
[2017-10-10 00:47] VITALS: BP 132/86; PULSE 86; O2SAT 95
--- NOTE | 2017-10-10 08:18 | DIAGNOSTIC IMAGING REPORT ---
R ANKLE MIN 3 VIEWS ROUTINE CLINICAL HISTORY: Right ankle injury following fall. COMPARISON: None FINDINGS: Alignment of the right ankle is anatomic. There is mild ankle soft tissue swelling. Lateral view demonstrates a lucency within the dorsal aspect of the distal talus which suggests an acute fracture which is minimally distracted. Calcific/ossific density along the fibular tip is noted. Extensive vascular calcification is noted. There is mild plantar calcaneal spurring. IMPRESSION: 1. Avulsion fracture of the dorsal distal talus which is likely acute. 2. Age indeterminate avulsion fracture adjacent to the fibular tip. Electronically signed by: Salty Mason M.D. 10/10/2017 8:16 AM Dictated Date/Time: 10/10/2017 8:12 AM
--- NOTE | 2017-10-10 08:19 | DIAGNOSTIC IMAGING REPORT ---
R TIBIA/FIBULA 2 VIEWS ROUTINE CLINICAL HISTORY: Right lower leg injury. Fall. COMPARISON: None FINDINGS: Visualized portions of the right knee arthroplasty are intact. Proximal aspect of femoral component is not imaged on this exam. Lucency within the dorsal distal talus suggest acute avulsion fracture. Slight calcific/ossific density adjacent to the fibular tip is noted. Calcific densities within the right lower leg are chronic. IMPRESSION: 1. Acute minimally displaced avulsion fracture of the dorsal distal talus. 2. Minimal ossific density along the fibular tip which suggests an age indeterminate avulsion injury. Electronically signed by: Salty Mason M.D. 10/10/2017 8:18 AM Dictated Date/Time: 10/10/2017 8:16 AM
== END 2017-10-10 00:49 | disposition home or self-care (01) ==
LOC: C.EDB 23:11 → C.EDC 10-10 00:49
DX: S82.891A Other fracture of right lower leg, initial encounter for closed fracture (principal); M79.661 Pain in right lower leg; X50.1XXA Overexertion from prolonged static or awkward postures, initial encounter; W19.XXXA Unspecified fall, initial encounter; I11.9 Hypertensive heart disease without heart failure; Z79.82 Long term (current) use of aspirin; Z88.8 Allergy status to other drugs, medicaments and biological substances; Z88.6 Allergy status to analgesic agent

== ENCOUNTER 2020-07-13 15:39 | Observation (INO) ==
--- NOTE | 2020-07-13 15:41 | Emergency Department Note ---
Impression & Plan Syncope, Vertigo, Acute leg pain ED Provider Note NAME: EDDA JOE AGE: 80 SEX: F : 1940 ARRIVES VIA: Ambulance INFORMANT: Patient, ED PROVIDER(S): Jose Carlos Perez MD Chief Complaint: Syncope, dizziness HPI: Patient does present concern for syncope and dizziness. The patient reportedly was making some hot sauces at the stove at which point the patient got very lightheaded and dizzy. The patient did describe some vertiginous symptoms sitting in the kitchen, which seem to be spinning. Patient does have a known history of vertigo. Patient did have an episode of vomiting in route as well as 2 times earlier today. Patient states that she has not been feeling very well over the last 3 to 4 days. Patient denies any recent trauma but did have a syncopal event. No reported seizure-like activity. The patient does not take blood thinning medications. BSG was normal in route. Patient did receive Zofran and IV fluids as well. The patient does complain of right hip and knee pain. Patient denies any headache or neck pain. The patient denies numbing numbness tingling or focal weakness but does have restricted range of motion right lower extremity secondary to pain. ROS: See HPI for pertinent positives and negatives. A total of 10 systems were reviewed and otherwise negative. Past medical history: See below Surgical history: See below Social history: See below Physical Exam: GENERAL: Wearing glasses and a mask, mildly uncomfortable in appearance. EYE EXAM: Normal conjunctiva. PERRL, no anisocoria and EOM's grossly intact w/o pain. NECK: Supple, no nuchal rigidity, no adenopathy, non-tender. No signs of meningismus. LUNGS: Clear to auscultation. Normal chest wall mechanics. HEART: NSR, no MRG. ABDOMEN: Abdomen soft, non-tender, normo-active bowel sounds, no masses, no rebound or guarding. BACK: No CVA TTP. SKIN: No rashes and no bruising. UPPER EXTREMITIES: Upper extremities are grossly normal. LOWER EXTREMITIES: Grossly normal, no edema. NEURO EXAM: A&O x3, cranial nerves II-XII grossly intact, normal speech, moves all 4 extremities on command w/o issue. Differential diagnoses: Benign positional vertigo, dehydration, hypovolemia, anemia, tumor, infection, hypoglycemia, electrolyte abnormalities, cardiac sources, intracerebral event, toxicologic, neurologic, as well as other pathologies. Course: Patient was seen and evaluated the bedside. Full history physical exam was performed. EKG interpreted by me Indication: Dizziness Sinus with first-degree AV block, rate of 76, prolonged [place] and QRS, normal axis, Q waves inferiorly. Imaging Studies: See below Cardiac monitoring: An order was placed for continuous cardiac monitoring. The monitor shows a rate of 67 with sinus rhythm. MDM: Patient was seen due to concern for vertiginous symptoms and associated syncope. Patient also did have right-sided hip and knee pain. Blood work was obtained along with a CT of the head chest x-ray and imaging of the right lower extremity. Patient does have a normal white count and hemoglobin. Platelet count is unremarkable. Kidney function unremarkable. Magnesium slightly low which is ordered for repleted. Troponin not detectable. EKG no obvious arrhythmia with exception of first-degree block. The patient CT of the head was negative. Chest x-ray unremarkable. The patient's hip and knee x-ray negative. Upon reassessment the patient no longer had any nausea but still complained of some right lower extremity pain. The patient was given additional medications. Given the patient's syncope with known heart disease the patient would benefit f rom continued observation and telemetry. I did speak the on-call hospitalist Dr. Figueroa. Patient was admitted to the medicine service. Past Med/Surg History Medical History (Updated 07/13/20 @ 18:45 by Jose Carlos Perez MD) Carotid stenosis, bilateral Coronary artery disease Coronary artery disease Essential hypertension GERD (gastroesophageal reflux disease) GERD (gastroesophageal reflux disease) Hypothyroidism Ischemic cardiomyopathy Ischemic cardiomyopathy Osteoarthritis Osteoarthritis Rheumatoid arthritis Methotrexate Therapy weekly Rheumatoid arthritis Spinal stenosis Spinal stenosis STEMI (ST elevation myocardial infarction) 2006 Syncope and collapse Episode on 11/05 - present from sitting to standing Surgical History History of right-sided carotid endarterectomy 2009 Hx of cataract surgery bilateral S/P tonsillectomy S/P tubal ligation Status post insertion of drug-eluting stent into left anterior descending (LAD) artery Status post insertion of drug-eluting stent into left anterior descending (LAD) artery Status post left knee replacement Family History Mother Diabetes Breast cancer Myocardial infarction Daughter Hypertension Other COPD (chronic obstructive pulmonary disease) Heart disease Stroke Denies family history of Ovarian cancer Prostate cancer Colorectal cancer Social History Smoking Status: Never smoker Second Hand Exposure: No; Hx Alcohol Use: No Hx Substance Use: No Preferred Language: Irish Communication Ability: Effective Visual Impairment: Limited Hearing Ability: Normal Mammography Tech Required: No Beliefs That Will Affect Care: None marital status: Current Living Situation: Spouse current occupational status: retired Feels Safe at Home: Yes Childhood Exposure to Second-Hand Smoke: Yes caffeine: Yes (Coffee 2 cups per day.) during the past year weight has: remained stable Dental Care, Regularly: No Physical Activity Frequency: Does not Exercise Seatbelt Use: always Sunscreen Use: Yes Assistive Devices: Denture - Upper, Denture - Lower, Glasses and Walker Allergies Allergies Allergy/AdvReac Type Severity Reaction Status Date / Time codeine Allergy Severe Hallucinati Verified 07/13/20 18:25 ng gabapentin Allergy Severe SEVERE Verified 07/13/20 18:25 ENTIRE BODY SWELLING, DIFFICULTY BREATHING tramadol Allergy Intermediate Flushing Verified 07/13/20 18:25 morphine AdvReac Mild UPSET Verified 07/13/20 18:25 STOMACH, PT STATES SHE WON'T TAKE 01/25/07 Home Meds Home Medications Medication Instructions Recorded Confirmed aspirin 81 mg PO DAILY 11/05/17 07/13/20 docusate sodium 100 mg PO DAILY PRN 11/05/17 07/13/20 acetaminophen 500 mg tablet 1,000 mg PO TID tab 11/16/18 07/13/20 buotgfkqxsos-Zd-ulgg-minerals 1 tab PO DAILY tab 11/16/18 07/13/20 nitroglycerin 0.4 mg sublingual 0.4 mg SUBLINGUAL Q5M PRN tab 11/22/18 07/13/20 tablet Previous Rx's Medication Instructions Recorded cholecalciferol (vitamin D3) 2,000 unit PO DAILY #90 tab 11/07/17 [Vitamin D3] folic acid 1 mg tablet 2 mg PO DAILY #180 tab 10/03/19 furosemide 40 mg tablet 40 mg PO DAILY #90 tab 01/23/20 isosorbide mononitrate 60 mg 90 mg PO QAM #135 tab 01/23/20 tablet,extended release 24 hr methotrexate sodium 2.5 mg tablet 12.5 mg PO WK #65 tab 01/23/20 lisinopril 2.5 mg tablet 2.5 mg PO QAM #90 tab 03/18/20 clobetasol 0.05 % topical ointment 1 applic TOP BID #60 gm 04/03/20 pantoprazole 40 mg tablet,delayed 40 mg PO QAM #90 tab 04/22/20 release levothyroxine 75 mcg tablet 75 mcg PO DAILY #90 tab 05/02/20 metoprolol tartrate 50 mg tablet 50 mg PO BID #180 tab 05/23/20 atorvastatin 80 mg tablet 80 mg PO QPM #90 tab 06/17/20 Results & Data (ED) Vital Signs Vital Signs - 24 hr 07/13/20 15:55 07/13/20 16:00 07/13/20 16:09 Temperature 36.8 C Temperature Source Oral Pulse Rate 65 67 Pulse Rate [Apical] 67 Pulse Rhythm Regular Pulse Rhythm [Apical] Regular Pulse Strength [Apical] Normal Respiratory Rate 20 16 18 Respiratory Effort / Characteristics Non-Labored Spontaneous Respiratory Depth Normal Respiratory Pattern Blood Pressure 139/58 L Blood Pressure [Left Arm] 116/57 L Blood Pressure Mean 85 Blood Pressure Mean [Left Arm] 76 Blood Pressure Position [Left Arm] Lying Pulse Oximetry 97 97 97 Oxygen Delivery Method Room Air Room Air Room Air Sepsis Recent Fever Within 48 Hours No Sepsis New/Unexplained Change in Mental Status N/A Sepsis Action Taken by Nursing No Action Required 07/13/20 18:18 Temperature Temperature Source Pulse Rate Pulse Rate [Apical] 72 Pulse Rhythm Pulse Rhythm [Apical] Regular Pulse Strength [Apical] Normal Respiratory Rate 20 Respiratory Effort / Characteristics Non-Labored Spontaneous Respiratory Depth Normal Respiratory Pattern Regular Blood Pressure Blood Pressure [Left Arm] 139/69 Blood Pressure Mean Blood Pressure Mean [Left Arm] 92 Blood Pressure Position [Left Arm] Lying Pulse Oximetry 98 Oxygen Delivery Method Room Air Sepsis Recent Fever Within 48 Hours Sepsis New/Unexplained Change in Mental Status Sepsis Action Taken by Residential Medications Current Medication List: was personally reviewed by me Laboratory Data Attestation: I reviewed the patient's lab results. Result diagrams: 07/13/20 15:55 07/13/20 15:55 Lab Results 07/13/20 07/13/20 07/13/20 Range/Units 15:55 15:55 15:55 WBC 7.16 (4.8-10.8) K/uL RBC 3.64 L (4.2-5.4) M/uL Hgb 12.4 (12.0-16.0) g/dL Hct 36.8 L (37-47) % MCV 101.1 H (80-100) fL MCH 34.1 H (25-34) pg MCHC 33.7 (32-36) g/dL RDW Std Deviation 51.2 H (36.4-46.3) fL RDW Coeff of Catarina 14.0 (11.5-14.5) % Plt Count 201 (130-400) K/uL MPV 9.2 (7.4-10.4) fL Immature Gran % (Auto) 0.3 % Neut % (Auto) 84.0 % Lymph % (Auto) 8.8 % Heard % (Auto) 6.6 % Eos % (Auto) 0.3 % Baso % (Auto) 0.0 % Neut # (Auto) 6.02 (1.4-6.5) K/uL Lymph # (Auto) 0.63 L (1.2-3.4) K/uL Heard # (Auto) 0.47 (0.11-0.59) K/uL Eos # (Auto) 0.02 (0-0.5) K/uL Baso # (Auto) 0.00 (0-0.2) K/uL Immature Gran # (Auto) 0.02 (0.00-0.02) K/uL PT 9.9 (9.0-12.0) Seconds INR 1.0 (0.9-1.1) Sodium 141 (136-145) mmol/L Potassium 3.8 (3.5-5.1) mmol/L Chloride 108 H (98-107) mmol/L Carbon Dioxide 26 (21-32) mmol/L Anion Gap 7.0 (3-11) BUN 12 (7-18) mg/dl Creatinine 1.01 (0.6-1.2) mg/dl Est Cr Clr Drug Dosing Not Reportable Est GFR ( Amer) 61.3 ml/min Est GFR (Non-Af Amer) 52.9 ml/min BUN/Creatinine Ratio 11.8 (10-20) Glucose 138 H (70-99) mg/dl Calcium 10.0 (8.5-10.1) mg/dl Magnesium 1.7 L (1.8-2.4) mg/dl Total Bilirubin 0.6 (0.2-1) mg/dl AST 19 (15-37) U/L ALT 21 (12-78) U/L Alkaline Phosphatase 75 (45-117) U/L Troponin I < 0.015 (0-0.045) ng/ml Total Protein 7.0 (6.4-8.2) gm/dl Albumin 3.8 (3.4-5.0) gm/dl Globulin 3.2 (2.5-4.0) gm/dl Albumin/Globulin Ratio 1.2 (0.9-2) TSH 5.170 H (0.300-4.500) uIu/ml Free T4 0.99 (0.8-1.6) ng/dl COVID-19 Eval Order 07/13/20 Range/Units 18:15 WBC (4.8-10.8) K/uL RBC (4.2-5.4) M/uL Hgb (12.0-16.0) g/dL Hct (37-47) % MCV (80-100) fL MCH (25-34) pg MCHC (32-36) g/dL RDW Std Deviation (36.4-46.3) fL RDW Coeff of Catarina (11.5-14.5) % Plt Count (130-400) K/uL MPV (7.4-10.4) fL Immature Gran % (Auto) % Neut % (Auto) % Lymph % (Auto) % Heard % (Auto) % Eos % (Auto) % Baso % (Auto) % Neut # (Auto) (1.4-6.5) K/uL Lymph # (Auto) (1.2-3.4) K/uL Heard # (Auto) (0.11-0.59) K/uL Eos # (Auto) (0-0.5) K/uL Baso # (Auto) (0-0.2) K/uL Immature Gran # (Auto) (0.00-0.02) K/uL PT (9.0-12.0) Seconds INR (0.9-1.1) Sodium (136-145) mmol/L Potassium (3.5-5.1) mmol/L Chloride (98-107) mmol/L Carbon Dioxide (21-32) mmol/L Anion Gap (3-11) BUN (7-18) mg/dl Creatinine (0.6-1.2) mg/dl Est Cr Clr Drug Dosing Est GFR ( Amer) ml/min Est GFR (Non-Af Amer) ml/min BUN/Creatinine Ratio (10-20) Glucose (70-99) mg/dl Calcium (8.5-10.1) mg/dl Magnesium (1.8-2.4) mg/dl Total Bilirubin (0.2-1) mg/dl AST (15-37) U/L ALT (12-78) U/L Alkaline Phosphatase (45-117) U/L Troponin I (0-0.045) ng/ml Total Protein (6.4-8.2) gm/dl Albumin (3.4-5.0) gm/dl Globulin (2.5-4.0) gm/dl Albumin/Globulin Ratio (0.9-2) TSH (0.300-4.500) uIu/ml Free T4 (0.8-1.6) ng/dl COVID-19 Eval Order Covid19 at [facility] Administered Medications Discontinued Medications Acetaminophen (Acetaminophen 500 Mg Tab) 1,000 mg PO NOW STA Stop: 07/13/20 17:52 Last Admin: 07/13/20 18:11 Dose: 1,000 mg Documented by: [id number] Fentanyl Citrate (Fentanyl Citrate 100 Mcg/2 Ml Vial) 25 mcg IV NOW STA Stop: 07/13/20 17:52 Last Admin: 07/13/20 18:10 Dose: 25 mcg Documented by: [id number] Sodium Chloride (Nss) 500 mls @ 999 mls/hr IV .Q31M LOS Stop: 07/13/20 16:30 Last Infusion: 07/13/20 17:00 Dose: 0 mls/hr Documented by: [id number] Admin: 07/13/20 16:28 Dose: 999 mls/hr Documented by: [id number] Magnesium Sulfate/Dextrose (Magnesium Sulfate / D5w) 1 gm in 100 mls @ 50 mls/hr IV ONE ONE Stop: 07/13/20 18:47 Last Admin: 07/13/20 16:53 Dose: 50 mls/hr Documented by: [id number] Lidocaine (Lidocaine 5% 1 Patch) 1 patch TD NOW STA Stop: 07/13/20 17:52 Last Admin: 07/13/20 18:11 Dose: 1 patch Documented by: [id number] Ondansetron HCl (Ondansetron Inj 2 Mg/Ml 2 Ml Vial) 4 mg IV NOW STA Stop: 07/13/20 15:58 Last Admin: 07/13/20 16:29 Dose: 4 mg Documented by: [id number] Imaging Data Radiologist's Impression: Head CT 07/13/20 15:57 CT head/brain wo con CLINICAL HISTORY: syncope COMPARISON STUDY: 11/05/2017 TECHNIQUE: Axial CT of the brain is performed from the vertex to the skull base. IV contrast was not administered for this examination. A dose lowering technique was utilized adhering to the principles of ALARA. CT DOSE: 537.48 mGy.cm FINDINGS: No intra or extra-axial mass lesions are visualized. There is no CT evidence of acute cortical infarction. There is no evidence of midline shift. There is no acute hemorrhage. No calvarial fractures are visualized. There are patchy white matter hypodensities likely on a small vessel basis. There is no evidence of pathologic ventricular dilatation. There is no evidence of acute sinusitis IMPRESSION: No acute intracranial findings ACT 112: Negative or not required by law. Electronically signed by: Nasir Bae M.D. 07/13/2020 4:27 PM Hip/Pelvis X-Ray 07/13/20 15:57 XR hip RT 2V w pelvis CLINICAL HISTORY: Right hip pain status post trauma COMPARISON: None. DISCUSSION: No acute fractures or dislocations are visualized. There are small calcifications adjacent to the iliac crest, likely related to musculotendinous insertions.. IMPRESSION: 1. No fractures or dislocations identified. ACT 112: Negative or not required by law. Electronically signed by: Nasir Bae M.D. 07/13/2020 5:28 PM Knee X-Ray 07/13/20 15:57 XR knee RT 3V CLINICAL HISTORY: Right knee pain status post trauma COMPARISON: September 2017 DISCUSSION: There is a total right knee arthroplasty. No acute fractures or dislocations are visualized. IMPRESSION: 1. Total right knee arthroplasty 2. No acute fractures or dislocations identified. ACT 112: Negative or not required by law. Electronically signed by: Nasir Bae M.D. 07/13/2020 5:29 PM Chest X-Ray 07/13/20 15:58 XR chest 1V portable CLINICAL HISTORY: weakness COMPARISON STUDY: 11/24/2018 FINDINGS: The cardiac and mediastinal contours are normal. There is no evidence of focal pulmonary consolidation. There is no evidence of failure. No pleural effusions are visualized.[ IMPRESSION: No active disease in the chest. ACT 112: Negative or not required by law. Electronically signed by: Nasir Bae M.D. 07/13/2020 5:28 PM Discharge Plan Visit Data Chief Complaint: Illness Stated Complaint: SYNCOPE, DIZZINESS, NAUSEA, VOMITING, FALL, ED Provider: Jose Carlos Perez Discharge Problem: Syncope, Vertigo, Acute leg pain Forms Stand Alone Forms: [facility] [email or web address] Prescriptions Prescriptions: No Action folic acid 1 mg tablet 2 mg PO DAILY Qty: 180 RF: 1 furosemide 40 mg tablet 40 mg PO DAILY Qty: 90 RF: 1 methotrexate sodium 2.5 mg tablet 12.5 mg PO WK Qty: 65 RF: 1 isosorbide mononitrate 60 mg tablet extended release 24 hr 90 mg PO QAM Qty: 135 RF: 3 lisinopril 2.5 mg tablet 2.5 mg PO QAM Qty: 90 RF: 3 clobetasol 0.05 % ointment 1 applic TOP BID Qty: 60 RF: 1 pantoprazole 40 mg tablet,delayed release (DR/EC) 40 mg PO QAM Qty: 90 RF: 0 levothyroxine 75 mcg tablet 75 mcg PO DAILY Qty: 90 RF: 1 metoprolol tartrate 50 mg tablet 50 mg PO BID Qty: 180 RF: 3 atorvastatin 80 mg tablet 80 mg PO QPM Qty: 90 RF: 1 acetaminophen 500 mg tablet 1,000 mg PO TID RF: 0 Multiple Vitamin, Womens tablet 1 tab PO DAILY RF: 0 aspirin 81 mg Tablet,Chewable 81 mg PO DAILY RF: 0 docusate sodium 100 mg Tablet 100 mg PO DAILY PRN (Reason: STOOL SOFTNER) RF: 0 cholecalciferol (vitamin D3) [Vitamin D3] 1,000 unit Tablet 2,000 unit PO DAILY Qty: 90 RF: 0 nitroglycerin 0.4 mg tablet, sublingual 0.4 mg Sublingual Q5M PRN (Reason: chest pain) RF: 0 Discharge Problem: Syncope Qualifiers: Syncope type: unspecified Qualified Code(s): R55 - Syncope and collapse Acute leg pain Qualifiers: Laterality: right Qualified Code(s): M79.604 - Pain in right leg
[2020-07-13] MEDS ORDERED: ONDANSETRON INJ 2 MG/ML 2 ML VIAL IV STA (15:57)
[2020-07-13] MEDS ORDERED: SODIUM CHLORIDE 0.9% 500 ML IV SCH (16:00)
[2020-07-13 16:20] LABS: Eosinophils # (auto) 0.02 K/uL (0-0.5); Eosinophils % (auto) 0.3 %; Hematocrit (blood only) 36.8 % (37-47); Hemoglobin 12.4 g/dL (12.0-16.0); Immature Granulocytes # (auto) 0.02 K/uL (0.00-0.02); Immature Granulocytes % (auto) 0.3 %; Lymphocytes # (auto) 0.63 K/uL (1.2-3.4); Lymphocytes % (auto) 8.8 %; Mean Corpuscular Hemoglobin 34.1 pg (25-34); Mean Corpuscular Hgb Conc 33.7 g/dL (32-36); Mean Corpuscular Volume 101.1 fL (80-100); Mean Platelet Volume 9.2 fL (7.4-10.4); Monocytes # (auto) 0.47 K/uL (0.11-0.59); Monocytes % (auto) 6.6 %; Neutrophils # (auto) 6.02 K/uL (1.4-6.5); Platelet Count 201 K/uL (130-400); RDW Standard Deviation 51.2 fL (36.4-46.3); Red Blood Count 3.64 M/uL (4.2-5.4); White Blood Count 7.16 K/uL (4.8-10.8)
--- NOTE | 2020-07-13 16:28 | CT Scan Report ---
CT head/brain wo con CLINICAL HISTORY: syncope COMPARISON STUDY: 11/05/2017 TECHNIQUE: Axial CT of the brain is performed from the vertex to the skull base. IV contrast was not administered for this examination. A dose lowering technique was utilized adhering to the principles of ALARA. CT DOSE: 537.48 mGy.cm FINDINGS: No intra or extra-axial mass lesions are visualized. There is no CT evidence of acute cortical infarc tion. There is no evidence of midline shift. There is no acute hemorrhage. No calvarial fractures ar e visualized. There are patchy white matter hypodensities likely on a small vessel basis. There is no evidence of pathologic ventricular dilatation. There is no evidence of acute sinusitis IMPRESSION: No acute intracranial findings ACT 112: Negative or not required by law. Electronically signed by: Nasir Bae M.D. 07/13/2020 4:27 PM
[2020-07-13 16:29] LABS: Alanine Aminotransferase 21 U/L (12-78); Albumin Level 3.8 gm/dl (3.4-5.0); Aspartate Aminotransferase 19 U/L (15-37); BUN Creatinine Ratio 11.8 (10-20); Blood Urea Nitrogen 12 mg/dl (7-18); Carbon Dioxide 26 mmol/L (21-32); Chloride 108 mmol/L (98-107); Est GFR (African American) 61.3 ml/min; Est GFR (Non-African American) 52.9 ml/min; Glucose 138 mg/dl (70-99); Magnesium 1.7 mg/dl (1.8-2.4); Potassium 3.8 mmol/L (3.5-5.1); Sodium 141 mmol/L (136-145)
[2020-07-13 16:30] LABS: Prothrombin Time 9.9 Seconds (9.0-12.0)
[2020-07-13 16:39] LABS: Albumin Globulin Ratio 1.2 (0.9-2); Alkaline Phosphatase 75 U/L (45-117); Bilirubin,Total 0.6 mg/dl (0.2-1); Globulin 3.2 gm/dl (2.5-4.0); Troponin I < 0.015 ng/ml (0-0.045)
[2020-07-13] MEDS ORDERED: MAGNESIUM SULFATE / D5W 1 GM/100 ML BAG IV ONE (16:48)
[2020-07-13 16:54] LABS: T4 Free Thyroxine 0.99 ng/dl (0.8-1.6)
--- NOTE | 2020-07-13 17:29 | XRay Report ---
XR chest 1V portable CLINICAL HISTORY: weakness COMPARISON STUDY: 11/24/2018 FINDINGS: The cardiac and mediastinal contours are normal. There is no evidence of focal pulmonary co nsolidation. There is no evidence of failure. No pleural effusions are visualized.[ IMPRESSION: No active disease in the chest. ACT 112: Negative or not required by law. Electronically signed by: Nasir Bae M.D. 07/13/2020 5:28 PM
--- NOTE | 2020-07-13 17:30 | XRay Report ---
XR knee RT 3V CLINICAL HISTORY: Right knee pain status post trauma COMPARISON: September 2017 DISCUSSION: There is a total right knee arthroplasty. No acute fractures or dislocations are visualiz ed. IMPRESSION: 1. Total right knee arthroplasty 2. No acute fractures or dislocations identified. ACT 112: Negative or not required by law. Electronically signed by: Nasir Bae M.D. 07/13/2020 5:29 PM
--- NOTE | 2020-07-13 17:30 | XRay Report ---
XR hip RT 2V w pelvis CLINICAL HISTORY: Right hip pain status post trauma COMPARISON: None. DISCUSSION: No acute fractures or dislocations are visualized. There are small calcifications adjacen t to the iliac crest, likely related to musculotendinous insertions.. IMPRESSION: 1. No fractures or dislocations identified. ACT 112: Negative or not required by law. Electronically signed by: Nasir Bae M.D. 07/13/2020 5:28 PM
[2020-07-13] MEDS ORDERED: ACETAMINOPHEN 500 MG TAB PO STA (17:51)
[2020-07-13] MEDS ORDERED: fentaNYL citrate 100 MCG/2 ML VIAL IV STA (17:51)
[2020-07-13] MEDS ORDERED: LIDOCAINE 5% 1 PATCH TD STA (17:51)
--- NOTE | 2020-07-13 18:40 | History & Physical Report ---
Date of Service July 13, 2020 Assessment & Plan (1) Syncope: Monitor on telemetry for arrhythmia Orthostatics in AM Suspect combination of dehydration from ongoing diarrhea in addition to antihypertensives. (2) Abdominal pain, vomiting, and diarrhea: CT A/P with IV contrast to r/o diverticulitis Stool culture, UA +/- culture (3) Hypertension: Continue her usual medications with furosemide 40 mg p.o. daily, isosorbide mononitrate 90 mg p.o. daily, lisinopril 2.5 mg p.o. daily. (4) Rheumatoid arthritis: Continue methotrexate 12.5 mg p.o. weekly, folic acid 2 mg p.o. daily. (5) Coronary artery disease: Continue aspirin 81mg PO daily, metoprolol tartrate 50mg PO BID, lisinopril 2,5mg PO daily, atorvastatin 80mg PO daily (6) Hypothyroidism: TSH 5.17 Continue levothyroxine 75 mcg PO daily (7) GERD (gastroesophageal reflux disease): Continue pantoprazole 40mg PO daily Admission and Anticipated Discharge Date Admission Date: July 13, 2020 History of Present Illness Chief Complaint: Diarrheal illness, syncope Primary Care Provider: ANA Gibson Latrice De Leon is a 80-year-old female who presents to the ER with diarrhea, generalized illness, dizziness and syncope. She reports having ongoing diarrheal illness for the last week. This morning at 2 AM she felt very sick to the stomach. Generalized abdominal pain but mostly in the left lower quadrant. She has not sought medical attention for this prior to this ER visit. She relaxed most of the day with no vomiting. Around 2 PM however she was cooking meats and onions and the next thing she remembers she was on the floor with the ambulance crew. She thinks she felt dizzy prior to falling. Brought in via EMS and had emesis on the way of ambulance. She has a significant history of coronary artery disease with myocardial infarction in 2006 undergoing PCI to mid LAD in 2008. RCA with chronic total acute occlusion. In addition she has had a previous syncopal event for which she was hospitalized in 2018 but has had no syncopal events since that time. In the ER due to her cardiac history and syncopal events she was referred to medicine for admission ongoing management. Initial troponin negative, EKG unremarkable. She has no chest pain or shortness of breath at this time. Allergies Allergy/AdvReac Type Severity Reaction Status Date / Time codeine Allergy Severe Hallucinati Verified 07/13/20 18:25 ng gabapentin Allergy Severe SEVERE Verified 07/13/20 18:25 ENTIRE BODY SWELLING, DIFFICULTY BREATHING tramadol Allergy Intermediate Flushing Verified 07/13/20 18:25 morphine AdvReac Mild UPSET Verified 07/13/20 18:25 STOMACH, PT STATES SHE WON'T TAKE 01/25/07 Home Medications Medication Instructions Recorded Confirmed Type aspirin 81 mg PO DAILY 11/05/17 07/13/20 History docusate sodium 100 mg PO DAILY PRN 11/05/17 07/13/20 History cholecalciferol (vitamin D3) 2,000 unit PO DAILY #90 tab 11/07/17 07/13/20 Rx [Vitamin D3] acetaminophen 500 mg tablet 1,000 mg PO TID tab 11/16/18 07/13/20 History mojcviyrfacu-Gn-zwif-minerals 1 tab PO DAILY tab 11/16/18 07/13/20 History nitroglycerin 0.4 mg sublingual 0.4 mg SUBLINGUAL Q5M PRN tab 11/22/18 07/13/20 History tablet folic acid 1 mg tablet 2 mg PO DAILY #180 tab 10/03/19 07/13/20 Rx furosemide 40 mg tablet 40 mg PO DAILY #90 tab 01/23/20 07/13/20 Rx isosorbide mononitrate 60 mg 90 mg PO QAM #135 tab 01/23/20 07/13/20 Rx tablet,extended release 24 hr methotrexate sodium 2.5 mg tablet 12.5 mg PO WK #65 tab 01/23/20 07/13/20 Rx lisinopril 2.5 mg tablet 2.5 mg PO QAM #90 tab 03/18/20 07/13/20 Rx clobetasol 0.05 % topical ointment 1 applic TOP BID #60 gm 04/03/20 07/13/20 Rx pantoprazole 40 mg tablet,delayed 40 mg PO QAM #90 tab 04/22/20 07/13/20 Rx release levothyroxine 75 mcg tablet 75 mcg PO DAILY #90 tab 05/02/20 07/13/20 Rx metoprolol tartrate 50 mg tablet 50 mg PO BID #180 tab 05/23/20 07/13/20 Rx atorvastatin 80 mg tablet 80 mg PO QPM #90 tab 06/17/20 07/13/20 Rx Past Med/Surg History Medical History (Updated 07/14/20 @ 10:20 by ANA Bahena) Carotid stenosis, bilateral Coronary artery disease Coronary artery disease Essential hypertension GERD (gastroesophageal reflux disease) GERD (gastroesophageal reflux disease) Hypothyroidism Ischemic cardiomyopathy Ischemic cardiomyopathy Osteoarthritis Osteoarthritis Rheumatoid arthritis Methotrexate Therapy weekly Rheumatoid arthritis Spinal stenosis Spinal stenosis STEMI (ST elevation myocardial infarction) 2006 Syncope and collapse Episode on 11/05 - present from sitting to standing Surgical History History of right-sided carotid endarterectomy 2008 Hx of cataract surgery bilateral S/P tonsillectomy S/P tubal ligation Status post insertion of drug-eluting stent into left anterior descending (LAD) artery Status post insertion of drug-eluting stent into left anterior descending (LAD) artery Status post left knee replacement Family History Mother Diabetes Breast cancer Myocardial infarction Daughter Hypertension Other COPD (chronic obstructive pulmonary disease) Heart disease Stroke Denies family history of Ovarian cancer Prostate cancer Colorectal cancer Social History Smoking Status: Never smoker Second Hand Exposure: No; Hx Alcohol Use: No Hx Substance Use: No Preferred Language: Maltese Communication Ability: Effective Visual Impairment: Limited Hearing Ability: Normal Health Services Director Required: No Beliefs That Will Affect Care: None marital status: Current Living Situation: Spouse Current Living Situation Comment: Lives with in fdc apartment current occupational status: retired Other Information That Helps Us Care for You: No Feels Safe at Home: Yes Safety Concerns: Feels Safe At This Time Childhood Exposure to Second-Hand Smoke: Yes caffeine: Yes (Coffee 2 cups per day.) during the past year weight has: remained stable Dental Care, Regularly: No Physical Activity Frequency: Does not Exercise Seatbelt Use: always Sunscreen Use: Yes Assistive Devices: Walker Review of Systems Review of Systems: All systems reviewed & are unremarkable except as noted in HPI & below Physical Exam Constitutional: WD/WN, vitals as above + obese Eyes: + anicteric sclerae; normal pupil size ENMT: external ear and nose normal, oropharynx normal Respiratory: normal respiratory effort, lungs clear to auscultation Cardiovascular: RRR, no murmur, no edema Gastrointestinal (Abdomen): Inspection/Auscultation: normal bowel sounds Percussion/Palpation: + abdomen tender (Generalized, worse in left lower quadrant) and abdomen soft; no guarding and abdomen not rigid Musculoskeletal: no cyanosis or clubbing, extremities motor strength 5/5 Skin: no rashes, warm and dry Neurologic: moves all extremities and awake; not confused Psychiatric: A+Ox3, euthymic affect Genitourinary: no CVA tenderness Results & Data Results & Data ([facility]) Vital Signs (Past 12 Hours) Vital Signs Temp Pulse Pulse Resp BP BP Pulse Ox 07/13/20 18:18 72 20 139/69 98 07/13/20 16:09 67 18 97 07/13/20 16:00 67 16 116/57 L 97 07/13/20 15:55 36.8 C 65 20 139/58 L 97 Diagnostic Findings XR chest 1V portable IMPRESSION: No active disease in the chest. XR knee RT 3V IMPRESSION: 1. Total right knee arthroplasty 2. No acute fractures or dislocations identified. XR hip RT 2V w pelvis IMPRESSION: 1. No fractures or dislocations identified. CT head/brain wo con IMPRESSION: No acute intracranial findings Medications Administered ER medications given: NSS 500 mL bolus Ondansetron 4 mg IV Fentanyl 25 mcg IV Acetaminophen 1 g p.o. Lidocaine patch Magnesium sulfate 1 g IV ECG Rate (beats per minute): 76 Rhythm: normal sinus Findings: + 1st degree AV block and + prolonged QT (QTC 501 ms) Comparison ECG Date: from (November 07, 2017) Change: the following changes noted (QT is lengthened) Code Status & VTE Plan Code Status Full VTE Prophylaxis Plan VTE Prophylaxis will be ordered: Yes PG Care Time/CCT Total # of Minutes Spent Total Time Spent with Patient: Total time spent is greater than 50% in coordination of care (as documented) at patient's floor/unit and/or counseling patient: Coding Level of Care Code 30214 OBS Care - Level 3 Diagnoses Syncope R55 Syncope type: unspecified Abdominal pain, vomiting, and diarrhea R10.9; R11.10; R19.7 Hypertension I10 Rheumatoid arthritis M06.9 Coronary artery disease I25.10 Hypothyroidism E03.9 Hypothyroidism type: acquired GERD (gastroesophageal reflux disease) K21.9 Esophagitis presence: without esophagitis (1) Hypothyroidism Hypothyroidism type: acquired Qualified Code(s): E03.9 - Hypothyroidism, unspecified (2) Syncope Syncope type: unspecified Qualified Code(s): R55 - Syncope and collapse (3) GERD (gastroesophageal reflux disease) Esophagitis presence: without esophagitis Qualified Code(s): K21.9 - Gastro- esophageal reflux disease without esophagitis
[2020-07-13] MEDS ORDERED: FAMOTIDINE 20MG/5ML IV PUSH IV ONE (19:17)
[2020-07-13] MEDS ORDERED: OPTIRAY 300 100mL IV ONE (20:27)
[2020-07-13] MEDS ORDERED: NITROGLYCERIN SL 0.4 MG/TAB TAB SL PRN (21:04)
[2020-07-13] MEDS ORDERED: DOCUSATE SODIUM 100 MG CAP PO PRN (21:08)
[2020-07-13] MEDS: ATORVASTATIN 40 MG TAB PO SCH (21:37)
[2020-07-13] MEDS: METOPROLOL TARTRATE 50 MG TAB PO SCH (21:37)
[2020-07-13] MEDS: ACETAMINOPHEN 325 MG TAB PO PRN (23:26)
[2020-07-14] MEDS: ACETAMINOPHEN 325 MG TAB PO PRN ×3 (04:15→20:43)
[2020-07-14] MEDS ORDERED: LEVOTHYROXINE SODIUM 75 MCG TABLET PO SCH (06:30)
--- NOTE | 2020-07-14 07:04 | CT Scan Report ---
CT abd pelvis IV con only CLINICAL HISTORY: Left lower quadrant abdominal pain COMPARISON STUDY: CT scan dated 04/04/2015 TECHNIQUE: The patient was scanned in a dynamic helical fashion during intravenous administration of 88 cc of Optiray 300. A dose lowering technique was utilized adhering to the principles of ALARA. CT DOSE: 694.69 mGy.cm FINDINGS: Lower chest: There are dependent atelectatic changes. There are no significant pleural effusions. Liver: The contrast-enhanced liver is normal in size, contour, and attenuation. There is no intrahepa tic biliary ductal dilatation. The hepatic veins and portal veins are patent. Gallbladder: Cholelithiasis. Mildly distended. No pericholecystic edema. Spleen: Normal in size and attenuation. Pancreas: Unremarkable. Adrenal glands: Unremarkable. Kidneys: No solid renal masses are visualized. There is no hydronephrosis. The right kidney appears s omewhat atrophic. Bowel: There are no transition zones indicate bowel obstruction. There is colonic diverticulosis. The re is no evidence of acute diverticulitis. The appendix appears normal. There are multiple fluid-fill ed small bowel loops with scattered air-fluid levels. Peritoneum: There is no intraperitoneal free air or abdominal ascites. Vasculature: The abdominal aorta is normal in course and caliber. Adenopathy: None. Pelvic viscera: There is a 31 mm right ovarian cyst. This measured 29 mm in 2016 Skeletal structures: There are dystrophic changes present within the left breast. No destructive skel etal lesions are visualized. IMPRESSION: 1. No evidence of bowel obstruction. No evidence of free air 2. Cholelithiasis 3. Colonic diverticulosis. No evidence of acute diverticulitis 4. Normal appendix 5. Right renal atrophy 6. 2 cm right ovarian cyst 7. Multiple fluid-filled small bowel loops with scattered air-fluid levels. This can be seen as a nor mal finding but can also be seen in an enteritis. ACT 112: Negative or not required by law. Electronically signed by: Nasir Bae M.D. 07/14/2020 7:02 AM
[2020-07-14] MEDS: lisinopril 2.5 MG TAB PO SCH (08:41)
[2020-07-14] MEDS: CHOLECALCIFEROL 1,000 UNITS 25 MCG TAB PO SCH (08:41)
[2020-07-14] MEDS: FOLIC ACID 1 MG TAB PO SCH (08:42)
[2020-07-14] MEDS: ISOSORBIDE MONO EXTENDED REL 30 MG TABCR PO SCH (08:42)
[2020-07-14] MEDS: FUROSEMIDE 40 MG TAB PO SCH (08:42)
[2020-07-14] MEDS: MULTIVITAMIN TAB PO SCH (08:43)
[2020-07-14] MEDS: ASPIRIN 81 MG CHEW PO SCH (08:43)
[2020-07-14] MEDS: PANTOprazole 40 MG TAB PO SCH (08:43)
[2020-07-14] MEDS: METOPROLOL TARTRATE 50 MG TAB PO SCH ×2 (08:43→20:43)
--- NOTE | 2020-07-14 10:22 | Hospitalist Progress Note ---
Date of Service July 14, 2020 Assessment & Plan (1) Abdominal pain, vomiting, and diarrhea: Epigastric pain radiating to mid-back after eating x 1 week. Diarrhea x 1 week. Vomiting x 1 day. Vomiting improved today. Stool culture ordered, but not yet performed. CT scan A/P showing cholelithiasis with a mildly distended gallbladder. Negative for diverticulitis. Will check a gallbladder u/s for further evaluation. May need HIDA scan or gen surg consult pending findings. Continue Zofran PRN, Protonix 40mg daily. (2) Syncope: No syncopal or cardiac episodes overnight. Patient denies dizziness. Per RN, orthostatic BPs were normal, although I could not appreciate that they were inputted into the EMR. Consider rechecking. (3) Acute leg pain: Right leg and knee pain. Patient reports she cannot bear weight on the leg. ? hit the knee during her fall. Right knee XR negative for fracture or dislocation. Will order a PT/OT eval. She does use a walker at home. Tylenol PRN for pain. Continue to monitor. (4) Hypertension: BP stable at 115/56. Continue home metoprolol and lisinopril. (5) Rheumatoid arthritis: Stable. Continue methotrexate 12.5mg PO/week (6) Coronary artery disease: Stable. Heart Healthy Diet ordered. Continue ASA 81mg daily, metoprolol 50mg PO BID, lisinopril 2.5mg PO daily, isosorbide 90mg PO daily, and atorvastatin 80mg PO daily. (7) GERD (gastroesophageal reflux disease): Continue pantoprazole 40mg PO daily. ? source for epigastic pain. Consider r/o peptic ulcer if no evidence of cholecystitis. (8) Hypothyroidism: TSH elevated at 5.17. Will increase dose of levothyroxine to 88mcg daily. Previously on 75mcg daily. (9) DVT prophylaxis: SCDs ordered. Holding chemical prophylaxis pending gallbladder work-up. Admission and Anticipated Discharge Date Admission Date: July 13, 2020 Supervising Physician Co-Signing Physician Notes Patient seen and examined with Mary PEREZ. I agree with their exam findings, review of systems, assessment and plan. I personally reviewed the lab work and imaging as well. patient is doing better from GI standpoint, abdominal US showed some gall stones but no signs of cholecystitis gives a history of gall stones, intermittent symptoms, presented with diarrhea, vomiting will check HIDA scan with EF tomorrow to rule out chronic cholecystitis still with severe right knee pain, cannot put any weight on the leg h/[place] [address] Agiulera knee x-ray on admission did not show any fractures knee is swollen and tender, will ask orthopedics to see tomorrow for any further recommendations as she is still in a great deal of pain Subjective 80 year old female admitted to [facility] after syncopal episode. No syncopal or cardiac events overnight. She denies any dizziness. She reports vomiting has improved, but she has a pressure of the epigastric region that radiates to the mid-back. This occurs after eating, and has been present x 1 week. This has been accompanied by diarrhea. Vomiting started yesterday as well. This is improved today per the patient. She denies any hematemesis, but does have a hx of GERD. She is currently on pantoprazole 40mg daily. She also c/o left knee pain, and states she cannot weight bear on the leg. XR on admission was negative for any fractures of dislocations. She has a hx of TKA. Review of Systems Constitutional: no fever and no chills Eyes: no worsening vision Ear, Nose, Mouth, Throat: no dizziness Respiratory: no dyspnea Cardiovascular: no chest pain Gastrointestinal: + abdominal pain, + nausea and + diarrhea/loose stools; no vomiting, no coffee ground emesis and no hematemesis Psychiatric: no confusion Physical Exam Physical Exam: Temp Pulse Resp BP Pulse Ox 36.8 C 63 18 115/56 L 92 07/14/20 07:10 07/14/20 07:10 07/14/20 07:10 07/14/20 07:10 07/14/20 07:10 Patient is afebrile. She is hypotensive at 115/56, but is asymptomatic. Constitutional: + obese; no acute distress ENMT: Ears: no hearing impairment Neck: trachea midline, no thyromegaly Respiratory: normal respiratory effort, lungs clear to auscultation Cardiovascular: Rate/Rhythm: regular rate and regular rhythm Extremities: + edema (non-pitting lower extremity edema ) Gastrointestinal (Abdomen): Inspection/Auscultation: normal bowel sounds Percussion/Palpation: + abdomen tender (diffuse ) and abdomen soft Psychiatric: A+Ox3, euthymic affect Lymphatic: no cervical or axillary lymphadenopathy Results & Data Results & Data ([facility]) Vital Signs (Past 12 Hours) Vital Signs Temp Pulse Pulse Resp BP Pulse Ox 07/14/20 07:10 36.8 C 63 18 115/56 L 92 07/14/20 03:51 36.7 C 66 18 105/64 97 07/14/20 00:56 61 07/13/20 22:46 36.9 C 60 18 107/61 95 PG Care Time/CCT Total # of Minutes Spent Total Time Spent with Patient: Total time spent is greater than 50% in coordination of care (as documented) at patient's floor/unit and/or counseling patient: Coding Level of Care Code 61987 Subseq Obs Care Lvl 2 Diagnoses Abdominal pain, vomiting, and diarrhea R10.9; R11.10; R19.7 Syncope R55 Syncope type: unspecified Acute leg pain M79.604 Laterality: right Hypertension I10 Rheumatoid arthritis M06.9 Coronary artery disease I25.118 Associated angina: with stable angina Coronary Disease-Associated Artery/Lesion type: [place] artery [place] vs. transplanted heart: [place] heart GERD (gastroesophageal reflux disease) K21.9 Esophagitis presence: without esophagitis Hypothyroidism E03.9 Hypothyroidism type: acquired DVT prophylaxis Z29.9 (1) Acute leg pain Laterality: right Qualified Code(s): M79.604 - Pain in right leg (2) Coronary artery disease Associated angina: with stable angina Coronary Disease-Associated Artery/Lesion type: [place] artery [place] vs. transplanted heart: [place] heart Qualified Code(s): I25.118 - Atherosclerotic heart disease of [place] coronary artery with other forms of angina pectoris (3) Hypothyroidism Hypothyroidism type: acquired Qualified Code(s): E03.9 - Hypothyroidism, unspecified (4) Syncope Syncope type: unspecified Qualified Code(s): R55 - Syncope and collapse (5) GERD (gastroesophageal reflux disease) Esophagitis presence: without esophagitis Qualified Code(s): K21.9 - Gastro- esophageal reflux disease without esophagitis
[2020-07-14 10:49] LABS: Appearance Urine Clear (Clear); Bilirubin Urine Negative (Negative); Blood Urine Negative (Negative); Color Urine Yellow; Glucose Urine UA Negative (Negative); Ketones Urine Negative (Negative); Leukocyte Esterase Urine Negative (Negative); Nitrite Urine Negative (Negative); Protein Urine Negative (Negative); Specific Gravity Urine 1.008 (1.000-1.030); Urobilinogen Urine Negative (Negative); pH Urine 5.5 (4.5-7.5)
--- NOTE | 2020-07-14 15:11 | Ultrasound Report ---
US gallbladder CLINICAL HISTORY: epigastric pain after eating- cholelithiasis on CT COMPARISON STUDY: CT of the abdomen and pelvis July 13, 2020. FINDINGS: Exam is mildly compromised by suboptimal penetration. No hepatic lesions are identified and there is no biliary ductal dilatation. The common bile duct measures 5 mm in caliber. The pancreatic body is normal. Head and tail are obscured by overlying bowel gas. There are gallstones within the g allbladder. No sonographic Griffith sign was reported. Gallbladder wall thickness is at the upper limit s of normal. No right hydronephrosis is present. IMPRESSION: 1. Cholelithiasis. No convincing evidence for acute cholecystitis; however, a nuclear medicine hepato biliary scan could be obtained to exclude this possibility. 2. No biliary ductal dilatation. ACT 112: Negative or not required by law. Electronically signed by: Salty Mason M.D. 07/14/2020 3:10 PM
--- NOTE | 2020-07-14 18:46 | Electrocardiogram Report ---
Test Reason : Blood Pressure : / mmHG Vent. Rate : 076 BPM Atrial Rate : 076 BPM P-R Int : 228 ms QRS Dur : 106 ms QT Int : 446 ms P-R-T Axes : 067 007 035 degrees QTc Int : 501 ms Sinus rhythm with 1st degree A-V block Cannot rule out Inferior infarct , age undetermined Abnormal ECG When compared with ECG of 07-NOV-2017 06:33, QT has lengthened Confirmed by Tim Lu ([id number]) on 07/14/2020 6:46:26 PM Referred By: REFERRED SELF Confirmed By:Obdulio Lu
[2020-07-14] MEDS: ATORVASTATIN 40 MG TAB PO SCH (20:43)
[2020-07-15] MEDS: ACETAMINOPHEN 325 MG TAB PO PRN ×3 (06:24→23:12)
[2020-07-15] MEDS: LEVOTHYROXINE SODIUM 88 MCG TABLET PO SCH (06:24)
[2020-07-15] MEDS: ASPIRIN 81 MG CHEW PO SCH (10:31)
[2020-07-15] MEDS: CHOLECALCIFEROL 1,000 UNITS 25 MCG TAB PO SCH (10:32)
[2020-07-15] MEDS: lisinopril 2.5 MG TAB PO SCH (10:32)
[2020-07-15] MEDS: FUROSEMIDE 40 MG TAB PO SCH (10:32)
[2020-07-15] MEDS: FOLIC ACID 1 MG TAB PO SCH (10:32)
[2020-07-15] MEDS: ISOSORBIDE MONO EXTENDED REL 30 MG TABCR PO SCH (10:32)
[2020-07-15] MEDS: METOPROLOL TARTRATE 50 MG TAB PO SCH ×2 (10:33→20:11)
[2020-07-15] MEDS: PANTOprazole 40 MG TAB PO SCH (10:33)
[2020-07-15] MEDS: MULTIVITAMIN TAB PO SCH (10:33)
--- NOTE | 2020-07-15 10:47 | Orthopedic Consultation ---
Date of Consultation July 15, 2020 Assessment & Plan (1) Right knee pain: Right knee pain status post fall from a sitting position in a walker fitted with a seat. Probable medial collateral injury. X-rays and exam reviewed with Dr. Maharaj this morning. No obvious fractures. No obvious areas of lucencies or loosening of the prosthesis. The majority of her pain is over the medial aspect of her knee at the joint line. She states that she was having pain on weightbearing but only started whenever she was bending her knee. Has no pain when the knee is in full extension while at rest. Ice to the right knee when immobilizer is off. Lidoderm patch to the medial aspect of the knee. Plan for immobilizer to the right lower extremity. Patient is to wear this with ambulation and being out of bed. She can have it off in bed while keeping the leg extended. If the immobilizer seems to be helping but is not stabilizing the knee enough, consider hinged knee brace. We will see how she ambulates with her immobilizer with physical therapy. History of Present Illness Reason for Consultation: Right knee pain status post fall Attending Physician: John Kumar History of Present Illness Is a 80-year-old white female who was admitted last night after passing out in her apartment. Patient states that over the last few weeks that she has been having loose bowel movements. However, by Wednesday she began having liquid bowel movements. She was generally feeling poorly. She states that last night she was beginning to prepare dinner for she and her . 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 She states that she ambulates with a walker and went to the refrigerator and pulled out some meat to lemons for dinner. He states that when she is preparing meals, she sits down on her walker seat and prepares the meals at the stove and/or counter. She states that she was able to get the meat into a frying mcbride and then began feeling lightheaded and dizzy. At that point she passed out. She states that when she came to, she had multiple people from her apartment complex standing around her along with emergency medical crew. She is unsure of how she fell however she feels that she had fallen onto her left side at some point. She is unsure if she twisted her knees or if she had fallen directly onto her knees before falling onto her side. When she came into the hospital she was complaining of right knee pain. She states that last night the knee was swollen and mildly erythematous. It was very tender on palpation. She states that this morning it is feeling a little bit better. She has much less swelling and no erythema. She still having pain in the medial aspect of her knee when she is bending the knee mostly. She feels she cannot weight-bear secondary to pain. X-rays were taken in the emergency room which showed no obvious fracture or loosening of the total knee prosthesis that she had placed 26 years ago. No other complaints at this time. Allergies Allergy/AdvReac Type Severity Reaction Status Date / Time codeine Allergy Severe Hallucinati Verified 07/13/20 18:25 ng gabapentin Allergy Severe SEVERE Verified 07/13/20 18:25 ENTIRE BODY SWELLING, DIFFICULTY BREATHING tramadol Allergy Intermediate Flushing Verified 07/13/20 18:25 morphine AdvReac Mild UPSET Verified 07/13/20 18:25 STOMACH, PT STATES SHE WON'T TAKE 01/25/07 Home Medications Medication Instructions Recorded Confirmed Type aspirin 81 mg PO DAILY 11/05/17 07/13/20 History docusate sodium 100 mg PO DAILY PRN 11/05/17 07/13/20 History cholecalciferol (vitamin D3) 2,000 unit PO DAILY #90 tab 11/07/17 07/13/20 Rx [Vitamin D3] acetaminophen 500 mg tablet 1,000 mg PO TID tab 11/16/18 07/13/20 History lvbzidwzypjz-Dd-ijkm-minerals 1 tab PO DAILY tab 11/16/18 07/13/20 History nitroglycerin 0.4 mg sublingual 0.4 mg SUBLINGUAL Q5M PRN tab 11/22/18 07/13/20 History tablet folic acid 1 mg tablet 2 mg PO DAILY #180 tab 10/03/19 07/13/20 Rx furosemide 40 mg tablet 40 mg PO DAILY #90 tab 01/23/20 07/13/20 Rx isosorbide mononitrate 60 mg 90 mg PO QAM #135 tab 01/23/20 07/13/20 Rx tablet,extended release 24 hr methotrexate sodium 2.5 mg tablet 12.5 mg PO WK #65 tab 01/23/20 07/13/20 Rx lisinopril 2.5 mg tablet 2.5 mg PO QAM #90 tab 03/18/20 07/13/20 Rx clobetasol 0.05 % topical ointment 1 applic TOP BID #60 gm 04/03/20 07/13/20 Rx pantoprazole 40 mg tablet,delayed 40 mg PO QAM #90 tab 04/22/20 07/13/20 Rx release levothyroxine 75 mcg tablet 75 mcg PO DAILY #90 tab 05/02/20 07/13/20 Rx metoprolol tartrate 50 mg tablet 50 mg PO BID #180 tab 05/23/20 07/13/20 Rx atorvastatin 80 mg tablet 80 mg PO QPM #90 tab 06/17/20 07/13/20 Rx Patient History Medical History (Updated 07/15/20 @ 10:56 by Andrew Martínez PA-C) Carotid stenosis, bilateral Coronary artery disease Coronary artery disease Essential hypertension GERD (gastroesophageal reflux disease) GERD (gastroesophageal reflux disease) Hypothyroidism Ischemic cardiomyopathy Ischemic cardiomyopathy Osteoarthritis Osteoarthritis Rheumatoid arthritis Methotrexate Therapy weekly Rheumatoid arthritis Spinal stenosis Spinal stenosis STEMI (ST elevation myocardial infarction) 2006 Syncope and collapse Episode on 11/05 - present from sitting to standing Surgical History History of right-sided carotid endarterectomy 2008 Hx of cataract surgery bilateral S/P tonsillectomy S/P tubal ligation Status post insertion of drug-eluting stent into left anterior descending (LAD) artery Status post insertion of drug-eluting stent into left anterior descending (LAD) artery Status post left knee replacement Family History Mother Diabetes Breast cancer Myocardial infarction Daughter Hypertension Other COPD (chronic obstructive pulmonary disease) Heart disease Stroke Denies family history of Ovarian cancer Prostate cancer Colorectal cancer Social History Smoking Status: Never smoker Second Hand Exposure: No; Hx Alcohol Use: No Hx Substance Use: No Preferred Language: Vietnamese Communication Ability: Effective Visual Impairment: Limited Hearing Ability: Normal Heel Gummer Required: No Beliefs That Will Affect Care: None marital status: Current Living Situation: Spouse Current Living Situation Comment: Lives with in penitentiary apartment current occupational status: retired Other Information That Helps Us Care for You: No Feels Safe at Home: Yes Safety Concerns: Feels Safe At This Time Childhood Exposure to Second-Hand Smoke: Yes caffeine: Yes (Coffee 2 cups per day.) during the past year weight has: remained stable Dental Care, Regularly: No Physical Activity Frequency: Does not Exercise Seatbelt Use: always Sunscreen Use: Yes Assistive Devices: Denture - Upper, Denture - Lower, Glasses and Walker Review of Systems Review of Systems: All systems reviewed & are unremarkable except as noted in HPI & below Physical Exam Physical Exam: Patient is sleeping upon entering room but is easily awoken. She is alert and oriented x3, no acute distress, pleasant cooperative. On examination of her right knee, she has a well-healed incision from her previous TKA done many years ago. Comparing the right knee to the left knee she has a mild amount of swelling mostly over the medial aspect of the knee compared to the left. She states that the swelling has gone down quite a bit since she was admitted. The knee does not feel hot to the touch. Temperatures approximate same as the left knee. Patient can actively flex the knee gently to approximately 20 to 30 degrees but has pain on the medial aspect of the knee near the joint line. She is capable of doing straight leg raise. On palpation I cannot feel any discrepancies in the quadriceps tendon. She is nontender in this area. She is nontender over the lateral aspect of her knee at the joint line. She has moderate pain on palpation over the medial collateral and the medial joint line. Again mild swelling is noted. I am able to gently lift the extremity with two hands and take the knee through gentle range of motion which does cause her some discomfort in the medial joint line. Axial loading does not produce any pain. As far as stability, she has some lateral play with her total knee arthroplasty with the joint line opening up a little bit laterally. Comparing it to the left knee, the feel the same. She does have some lateral plate in the left knee as well. Testing the medial collateral, the joint does not appear to have any play to it but she has moderate pain when stressing the medial collateral. Ishmael's exam not produce any noticeable shift. She has no gross motor or sensory loss seen at this time. Distal pulses are equal bilaterally of the upper and lower extremities. Results & Data ([facility]) Vital Signs (Past 12 Hours) Vital Signs Temp Pulse Pulse Resp BP Pulse Ox 07/15/20 07:44 36.6 C 60 18 118/74 94 07/15/20 07:16 36.4 C L 50 L 18 112/72 93 07/15/20 07:15 66 07/15/20 03:01 36.6 C 69 16 107/63 95 07/14/20 23:35 71 07/14/20 23:02 36.7 C 67 16 119/73 95 Diagnostic Findings Patient: EDDA JOE Date: 07/13/20MR#: [id number]: [address] ID:[id number]: [address]Birth Date: [birth year]City Zip: [place], [place] [address]Hdu: [id number]: EDSex: FRoom/Bed:Att Phy:Diagnosis: SYNCOPE, DIZZINESS, NAUSEA, VOMITING, FALL,Tanesha Phy: Gennaro Cedeno CRNPService Date: 07/13/20Fam Phy:Interpreting Phy: Nasir Bae MDAdmit Phy: Ordering Phy: Jose Carlos Perez MD cc: ~ XR knee RT 3V CLINICAL HISTORY: Right knee pain status post trauma COMPARISON: September 2017 DISCUSSION: There is a total right knee arthroplasty. No acute fractures or dislocations are visualized. IMPRESSION: 1. Total right knee arthroplasty 2. No acute fractures or dislocations identified.
[2020-07-15] MEDS: LIDOCAINE 5% 1 PATCH TD SCH (11:29)
[2020-07-15] MEDS: ATORVASTATIN 40 MG TAB PO SCH (20:11)
--- NOTE | 2020-07-15 22:25 | Hospitalist Progress Note ---
Date of Service July 15, 2020 Assessment & Plan (1) Abdominal pain, vomiting, and diarrhea: CT A/P with IV contrast to r/o diverticulitis: negative for diverticulitis Stool culture: negative UA +/- culture Will obtain HIDA scan. Likely viral, if workup is negative. Patient currently does not have diarrhea (2) Syncope: Monitor on telemetry for arrhythmia Orthostatics in AM Suspect combination of dehydration from ongoing diarrhea in addition to ant ihypertensives. (3) Acute leg pain: (4) Hypertension: Continue her usual medications with furosemide 40 mg p.o. daily, isosorbide mononitrate 90 mg p.o. daily, lisinopril 2.5 mg p.o. daily. (5) Rheumatoid arthritis: Continue methotrexate 12.5 mg p.o. weekly, folic acid 2 mg p.o. daily. (6) Coronary artery disease: (7) GERD (gastroesophageal reflux disease): Continue pantoprazole 40mg PO daily (8) Hypothyroidism: TSH 5.17 Continue levothyroxine 75 mcg PO daily (9) DVT prophylaxis: Admission and Anticipated Discharge Date Admission Date: July 14, 2020 Subjective Patient reports feeling well. Patient has no new complaints at this time. Review of Systems Review of Systems: All systems reviewed & are unremarkable except as noted in HPI & below Physical Exam Physical Exam: Patient is afebrile. Patient is asymptomatic. Constitutional: + obese; no acute distress ENMT: Ears: no hearing impairment Neck: trachea midline, no thyromegaly Respiratory: normal respiratory effort, lungs clear to auscultation Cardiovascular: Rate/Rhythm: regular rate and regular rhythm Extremities: + edema (non-pitting lower extremity edema ) Gastrointestinal (Abdomen): Inspection/Auscultation: normal bowel sounds Percussion/Palpation: abdomen nontender and abdomen soft Psychiatric: A+Ox3, euthymic affect Lymphatic: no cervical or axillary lymphadenopathy Results & Data Results & Data ([facility]) Vital Signs (Past 12 Hours) Vital Signs Temp Pulse Pulse Resp BP Pulse Ox 07/15/20 18:28 36.8 C 78 20 119/67 92 07/15/20 15:36 66 07/15/20 14:55 37.0 C 65 20 106/62 93 07/15/20 11:01 36.4 C L 70 18 134/80 96 PG Care Time/CCT Total # of Minutes Spent Total Time Spent with Patient: Total time spent is greater than 50% in coordination of care (as documented) at patient's floor/unit and/or counseling patient: Coding Level of Care Code 63865 Subseq Hosp Care Lvl 3 Diagnoses Abdominal pain, vomiting, and diarrhea R10.9; R11.10; R19.7 Syncope R55 Syncope type: unspecified Acute leg pain M79.604 Laterality: right Hypertension I10 Rheumatoid arthritis M06.9 Coronary artery disease I25.118 Associated angina: with stable angina Coronary Disease-Associated Artery/Lesion type: [place] artery [place] vs. transplanted heart: tribe heart GERD (gastroesophageal reflux disease) K21.9 Esophagitis presence: without esophagitis Hypothyroidism E03.9 Hypothyroidism type: acquired DVT prophylaxis Z29.9 Time Spent (min) 35 (1) Acute leg pain Laterality: right Qualified Code(s): M79.604 - Pain in right leg (2) Coronary artery disease Associated angina: with stable angina Coronary Disease-Associated Artery/Lesion type: [place] artery [place] vs. transplanted heart: tribe heart Qualified Code(s): I25.118 - Atherosclerotic heart disease of tribe coronary artery with other forms of angina pectoris (3) Hypothyroidism Hypothyroidism type: acquired Qualified Code(s): E03.9 - Hypothyroidism, unspecified (4) Syncope Syncope type: unspecified Qualified Code(s): R55 - Syncope and collapse (5) GERD (gastroesophageal reflux disease) Esophagitis presence: without esophagitis Qualified Code(s): K21.9 - Gastro- esophageal reflux disease without esophagitis
[2020-07-16] MEDS: LEVOTHYROXINE SODIUM 88 MCG TABLET PO SCH (06:22)
[2020-07-16 08:25] LABS: Hematocrit (blood only) 32.1 % (37-47); Hemoglobin 10.7 g/dL (12.0-16.0); Mean Corpuscular Hemoglobin 34.5 pg (25-34); Mean Corpuscular Hgb Conc 33.3 g/dL (32-36); Mean Corpuscular Volume 103.5 fL (80-100); Mean Platelet Volume 8.6 fL (7.4-10.4); Platelet Count 168 K/uL (130-400); RDW Standard Deviation 52.7 fL (36.4-46.3); White Blood Count 4.09 K/uL (4.8-10.8)
[2020-07-16] MEDS: LIDOCAINE 5% 1 PATCH TD SCH (08:49)
[2020-07-16 08:54] LABS: BUN Creatinine Ratio 16.8 (10-20); Calcium 9.2 mg/dl (8.5-10.1); Creatinine Clr Calc Pharmacy 56.2 ml/min; Magnesium 2.1 mg/dl (1.8-2.4); Potassium 4.4 mmol/L (3.5-5.1)
[2020-07-16] MEDS: ASPIRIN 81 MG CHEW PO SCH (15:47)
[2020-07-16] MEDS: CHOLECALCIFEROL 1,000 UNITS 25 MCG TAB PO SCH (15:47)
[2020-07-16] MEDS: FUROSEMIDE 40 MG TAB PO SCH (15:47)
[2020-07-16] MEDS: FOLIC ACID 1 MG TAB PO SCH (15:47)
[2020-07-16] MEDS: ISOSORBIDE MONO EXTENDED REL 30 MG TABCR PO SCH (15:47)
[2020-07-16] MEDS: PANTOprazole 40 MG TAB PO SCH (15:48)
[2020-07-16] MEDS: lisinopril 2.5 MG TAB PO SCH (15:48)
[2020-07-16] MEDS: ACETAMINOPHEN 325 MG TAB PO PRN (15:48)
[2020-07-16] MEDS: MULTIVITAMIN TAB PO SCH (15:48)
[2020-07-16] MEDS: METOPROLOL TARTRATE 50 MG TAB PO SCH (15:48)
--- NOTE | 2020-07-16 15:59 | Nuclear Medicine Report ---
NUCLEAR MEDICINE HEPATOBILIARY SCAN WITH EJECTION FRACTION HISTORY: Right upper quadrant pain. Gall stones, cholecystitis? COMPARISON: Abdominal ultrasound 07/14/2020. TECHNIQUE: Immediately following the intravenous administration of 5.4 mCi Tc-99m Choletec, dynamic a nterior abdominal imaging pre/post oral Boost was performed. FINDINGS: Uniform hepatic tracer accumulation is shown. Prompt intrahepatic biliary excretion is seen. The gall bladder, common bile duct, and small bowel are all visualized by 55 minutes. This appearance represen ts the normal sequence of biliary excretion. The gall bladder ejection fraction following administration of Kinevac was 77% (normal >35%). IMPRESSION: 1. No evidence for cystic duct obstruction. 2. Gallbladder ejection fraction calculated to be 77 %. ACT 112: Negative or not required by law. Electronically signed by: Venu Wallace M.D. 07/16/2020 3:58 PM
--- NOTE | 2020-07-21 12:02 | Discharge Summary ---
Date of Service July 16, 2020 Admission HPI Per Admitting Provider Latrice De Leon is a 80-year-old female who presents to the ER with diarrhea, generalized illness, dizziness and syncope. She reports having ongoing diarrheal illness for the last week. This morning at 2 AM she felt very sick to the stomach. Generalized abdominal pain but mostly in the left lower quadrant. She has not sought medical attention for this prior to this ER visit. She relaxed most of the day with no vomiting. Around 2 PM however she was cooking meats and onions and the next thing she remembers she was on the floor with the ambulance crew. She thinks she felt dizzy prior to falling. Brought in via EMS and had emesis on the way of ambulance. She has a significant history of coronary artery disease with myocardial infarction in 2006 undergoing PCI to mid LAD in 2008. RCA with chronic total a cute occlusion. In addition she has had a previous syncopal event for which she was hospitalized in 2018 but has had no syncopal events since that time. In the ER due to her cardiac history and syncopal events she was referred to medicine for admission ongoing management. Initial troponin negative, EKG unremarkable. She has no chest pain or shortness of breath at this time. Principal Diagnosis abdominal pain Discharge Exam Patient is afebrile. Patient is asymptomatic. Constitutional: + obese; no acute distress ENMT: Ears: no hearing impairment Neck: trachea midline, no thyromegaly Respiratory: normal respiratory effort, lungs clear to auscultation Cardiovascular: Rate/Rhythm: regular rate and regular rhythm Extremities: + edema (non-pitting lower extremity edema ) Gastrointestinal (Abdomen): Inspection/Auscultation: normal bowel sounds Percussion/Palpation: abdomen nontender and abdomen soft Psychiatric: A+Ox3, euthymic affect Lymphatic: no cervical or axillary lymphadenopathy Discharge Data Allergies Allergy/AdvReac Type Severity Reaction Status Date / Time codeine Allergy Severe Hallucinati Verified 07/13/20 18:25 ng gabapentin Allergy Severe SEVERE Verified 07/13/20 18:25 ENTIRE BODY SWELLING, DIFFICULTY BREATHING tramadol Allergy Intermediate Flushing Verified 07/13/20 18:25 morphine AdvReac Mild UPSET Verified 07/13/20 18:25 STOMACH, PT STATES SHE WON'T TAKE 01/25/07 Consultations 07/13/20 18:43 ED Decision to Admit Stat 07/14/20 20:02 Consult Orthopedic Surgery Routine Ordered Studies 07/13/20 15:57 CT head/brain wo con Stat 07/13/20 19:01 CT abd pelvis IV con only Urgent 07/14/20 08:37 US gallbladder Routine Hospital Course (1) Abdominal pain, vomiting, and diarrhea: CT A/P with IV contrast to r/o diverticulitis: negative for diverticulitis Stool culture: negative UA +/- culture Will obtain HIDA scan: THIS WAS NEGATIVE. Likely viral, this likely contributed to your lightheadedness. Patient currently does not have diarrhea Will recommend followup with PCP in 1-2 weeks In regards to your knee pain, will recommend followup with ortho as an outpatient. (2) Syncope: Monitor on telemetry for arrhythmia Orthostatics in AM Suspect combination of dehydration from ongoing diarrhea in addition to antihypertensives. (3) Acute leg pain: (4) Hypertension: Continue her usual medications with furosemide 40 mg p.o. daily, isosorbide mononitrate 90 mg p.o. daily, lisinopril 2.5 mg p.o. daily. (5) Rheumatoid arthritis: Continue methotrexate 12.5 mg p.o. weekly, folic acid 2 mg p.o. daily. (6) Coronary artery disease: (7) GERD (gastroesophageal reflux disease): Continue pantoprazole 40mg PO daily (8) Hypothyroidism: TSH 5.17 Continue levothyroxine 75 mcg PO daily (9) DVT prophylaxis: Total Time Total Time Spent Total Time Spent (In Minutes): 32 Total Time Includes: Examination of the Patient, Discharge Planning and Medication Reconciliation Discharge Plan Discharge Items Patient Disposition: Home - Home Health Services Reason For Visit: SYNCOPE Discharge Diagnosis: syncope Activity: Resume your previous activity Non-emergency contact: Primary Care Provider Call non-emergency contact if: you have any medication questions Follow-up/Referrals: Gennaro Cedeno CRNP [Primary Care Provider] - 07/24/20 1:00 pm (If you have any questions or need to change this appointment, please call [phone]. ) Diet: Heart Healthy Addtl Attending Provider Instructions: In regards to knee, you can be weightbearing as tolerated with immobilizer for now PT she can follow-up in the office for a hinged knee brace with Dr. Maharaj. Your diarrhea has resolved. It appears this likely was a viral illness. This likely contributed your sense of feeling lightheaded and weak. Pending Studies at Discharge: No Stand-Alone Forms: My [facility], Smoking Cessation Medications and DC Order Prescriptions: New lidocaine 5 % Adhesive Patch,Medicated 1 patch transdermal QAM Qty: 15 RF: 0 Continued folic acid 1 mg tablet 2 mg PO DAILY Qty: 180 RF: 1 furosemide 40 mg tablet 40 mg PO DAILY Qty: 90 RF: 1 methotrexate sodium 2.5 mg tablet 12.5 mg PO WK Qty: 65 RF: 1 isosorbide mononitrate 60 mg tablet extended release 24 hr 90 mg PO QAM Qty: 135 RF: 3 lisinopril 2.5 mg tablet 2.5 mg PO QAM Qty: 90 RF: 3 clobetasol 0.05 % ointment 1 applic TOP BID Qty: 60 RF: 1 pantoprazole 40 mg tablet,delayed release (DR/EC) 40 mg PO QAM Qty: 90 RF: 0 levothyroxine 75 mcg tablet 75 mcg PO DAILY Qty: 90 RF: 1 metoprolol tartrate 50 mg tablet 50 mg PO BID Qty: 180 RF: 3 atorvastatin 80 mg tablet 80 mg PO QPM Qty: 90 RF: 1 acetaminophen 500 mg tablet 1,000 mg PO TID RF: 0 Multiple Vitamin, Womens tablet 1 tab PO DAILY RF: 0 aspirin 81 mg Tablet,Chewable 81 mg PO DAILY RF: 0 docusate sodium 100 mg Tablet 100 mg PO DAILY PRN (Reason: STOOL SOFTNER) RF: 0 cholecalciferol (vitamin D3) [Vitamin D3] 1,000 unit Tablet 2,000 unit PO DAILY Qty: 90 RF: 0 nitroglycerin 0.4 mg tablet, sublingual 0.4 mg Sublingual Q5M PRN (Reason: chest pain) RF: 0 Discharge Orders: Discharge Order (Routine); Ordered 07/16/20 Ordered By: John Kumar Admission Data Admit Date/Time: 07/13/20 18:35 Attending Provider: John Kumar Admit Provider: Kyree Figueroa Primary Care Provider: Gennaro Cedeno Other Providers: Kyree Figueroa ; Ozzy Finn ; [facility] Other Interventions: Discharge Summary Assessment (RN) Last Done: 07/16/20 17:21 Coding Level of Care Code D/C Day Management >30 mins Diagnoses Abdominal pain, vomiting, and diarrhea R10.9; R11.10; R19.7 Syncope R55 Syncope type: unspecified Acute leg pain M79.604 Laterality: right Hypertension I10 Rheumatoid arthritis M06.9 Coronary artery disease I25.118 Coronary Disease-Associated Artery/Lesion type: [place] artery [place] vs. transplanted heart: [place] heart Associated angina: with stable angina GERD (gastroesophageal reflux disease) K21.9 Esophagitis presence: without esophagitis Hypothyroidism E03.9 Hypothyroidism type: acquired DVT prophylaxis Z29.9
[2020-07-26] MEDS ORDERED: metHOTREXate sodium 2.5 MG TAB PO SCH (09:00)
== END 2020-07-16 17:40 | disposition home health service (06) ==
LOC: ED 15:39 → 2W 15:39 → SUATTDRO 18:35 → 2W 20:31 → SUATTDRO 07-14 15:56

== ENCOUNTER 2021-02-13 11:27 | Observation (INO) ==
[2021-02-13] MEDS ORDERED: SODIUM CHLORIDE 0.9% 1000ML 1,000 ML IV STA (11:39)
[2021-02-13] MEDS ORDERED: NITROGLYCERIN SL 0.4 MG/TAB TAB SL PRN ×2 (11:39→18:38)
[2021-02-13] MEDS ORDERED: ASPIRIN CHEW 324 MG PO STA (11:39)
--- NOTE | 2021-02-13 11:54 | Emergency Department Note ---
History of Present Illness General Chief Complaint: Chest Pain Stated Complaint: CHEST PAIN, NAUSEA, DIARRHEA Time Seen by Provider: 02/13/21 11:29 History of Present Illness Provider Complaint: chest pain Onset (ago): day(s) 2 Duration: intermittent Onset: awoke with symptoms Pain Location: substernal Pain Radiation: LUE Severity: moderate Maximum Pain Intensity: 7 Current Pain Intensity: 7 Quality: + other (burning and pressure) Relieved By: + nothing Exacerbated By: + nothing Context: no recent illness, no recent surgery, no recent immobilization, no recent travel, no trauma/injury, no new medications or no history of DVT/PE Associated symptoms: + dyspnea; no nausea, no vomiting, no diaphoresis, no sense of impending doom, no syncope, no palpitations, no fever, no cough or no leg swelling Treatments prior to arrival: none Home Medications Medication Instructions Recorded Confirmed Type aspirin 81 mg chewable tablet 81 mg PO QAM 11/05/17 02/13/21 History docusate sodium 100 mg tablet 100 mg PO DAILY PRN 11/05/17 02/13/21 History nitroglycerin 0.4 mg sublingual 0.4 mg SUBLINGUAL Q5M PRN tab 11/22/18 02/13/21 History tablet isosorbide mononitrate 60 mg 90 mg PO QAM #135 tab 01/23/20 02/13/21 Rx tablet,extended release 24 hr lisinopril 2.5 mg tablet 2.5 mg PO QAM #90 tab 03/18/20 02/13/21 Rx metoprolol tartrate 50 mg tablet 50 mg PO BID #180 tab 05/23/20 02/13/21 Rx atorvastatin 80 mg tablet 80 mg PO QPM #90 tab 12/30/20 02/13/21 Rx pantoprazole 40 mg tablet,delayed 40 mg PO QAM #90 tab 01/30/21 02/13/21 Rx release acetaminophen 500 mg tablet 1,000 mg PO TID PRN tab 02/11/21 02/13/21 History carboxymethylcellulose 1 1 drp OPHTHALMIC (EYE) BID 02/11/21 02/13/21 History %-glycerin 0.9 % eye gel drops (Refresh Optive) clobetasol 0.05 % topical ointment 1 applic TOP BID PRN gm 02/11/21 02/13/21 History sulfamethoxazole 800 1 tab PO BID 3 Days #6 tab 02/11/21 02/13/21 Rx mg-trimethoprim 160 mg tablet (Bactrim DS) vitamins A,C,C-[id number]-vkztda 14,320 1 cap PO BID 02/11/21 02/13/21 History unit-226 mg-200 unit capsule (ICaps AREDS) cholecalciferol (vitamin D3) 25 2,000 unit PO QAM 02/13/21 02/13/21 History mcg (1,000 unit) tablet (Vitamin D3) folic acid 1 mg tablet 2 mg PO QAM 02/13/21 02/13/21 History furosemide 40 mg tablet 40 mg PO QAM 02/13/21 02/13/21 History levothyroxine 75 mcg tablet 75 mcg PO QAM 02/13/21 02/13/21 History multivitamin 1 tab PO QAM 02/13/21 02/13/21 History Allergies Allergy/AdvReac Type Severity Reaction Status Date / Time codeine Allergy Severe Hallucinati Verified 02/13/21 13:27 ng gabapentin Allergy Severe SEVERE Verified 02/13/21 13:27 ENTIRE BODY SWELLING, DIFFICULTY BREATHING tramadol Allergy Intermediate Flushing Verified 02/13/21 13:27 morphine AdvReac Mild UPSET Verified 02/13/21 13:27 STOMACH, PT STATES SHE WON'T TAKE 01/25/07 Past Med/Surg History Medical History Abdominal pain, vomiting, and diarrhea Carotid stenosis, bilateral Coronary artery disease DVT prophylaxis GERD (gastroesophageal reflux disease) Hypothyroidism Ischemic cardiomyopathy Osteoarthritis Rheumatoid arthritis Methotrexate Therapy weekly Spinal stenosis STEMI (ST elevation myocardial infarction) 2006 Syncope Syncope and collapse Episode on 11/05 - present from sitting to standing Vertigo Surgical History History of right-sided carotid endarterectomy 2009 Hx of cataract surgery bilateral S/P tonsillectomy S/P tubal ligation Status post insertion of drug-eluting stent into left anterior descending (LAD) artery Status post insertion of drug-eluting stent into left anterior descending (LAD) artery Status post left knee replacement Family History Mother Diabetes Breast cancer Myocardial infarction Daughter Hypertension Other COPD (chronic obstructive pulmonary disease) Heart disease Stroke Denies family history of Ovarian cancer Prostate cancer Colorectal cancer Social History Smoking Status: Never smoker Second Hand Exposure: No; Hx Alcohol Use: No Hx Substance Use: No Preferred Language: Bengali Communication Ability: Effective Visual Impairment: Limited Hearing Ability: Normal 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 Beliefs That Will Affect Care: None marital status: Current Living Situation: Spouse Current Living Situation Comment: Lives with in prison apartment current occupational status: retired Feels Safe at Home: Yes Childhood Exposure to Second-Hand Smoke: Yes caffeine: Yes (Coffee 2 cups per day.) during the past year weight has: remained stable Dental Care, Regularly: No Physical Activity Frequency: Does not Exercise Seatbelt Use: always Sunscreen Use: Yes Assistive Devices: Brace/Splint/Immobilizer and Walker Review of Systems A total of 10 systems reviewed and were otherwise negative Physical Exam Vital Signs Vital Signs - 24 hr 02/13/21 11:30 02/13/21 11:39 02/13/21 13:51 Temperature 36.6 C Temperature Source Oral Pulse Rate [Apical] 70 70 Pulse Rhythm [Apical] Regular Respiratory Rate 16 Respiratory Effort / Characteristics Non-Labored Spontaneous Respiratory Depth Normal Blood Pressure [Right Arm] 146/73 H 110/58 L Blood Pressure Mean [Right Arm] 97 75 Blood Pressure Position [Right Arm] Lying Pulse Oximetry 96 97 96 Oxygen Delivery Method Room Air Room Air Sepsis Recent Fever Within 48 Hours No Sepsis New/Unexplained Change in Mental Status No Sepsis Action Taken by Nursing No Action Required Physical Exam GENERAL: She is oriented to person, place, and time. She appears well-developed and well-nourished. She does not appear distressed. HENT: Exam performed. -Head: Normocephalic and atraumatic. -Right Ear: External ear normal. No mastoid tenderness. -Left Ear: External ear normal. No mastoid tenderness. -Mouth/Throat: The oropharynx is clear and moist. No trismus in the jaw. No dental abscesses or uvula swelling. No oropharyngeal exudate or tonsillar absc esses. EYES: Conjunctivae and EOM are normal. Pupils are equal, round, and reactive to light. Right eye exhibits no discharge. Left eye exhibits no discharge. No scleral icterus. NECK: Normal range of motion. Neck supple. No JVD present. No spinous process tenderness present. No carotid bruit present. No rigidity. No tracheal deviation and normal range of motion present. No Brudzinski's sign and no Kernig's sign noted. CV: Normal rate, regular rhythm, normal heart sounds and intact distal pulses. There is no peripheral edema. Palpable radial pulses bue. PULM/CHEST: Effort normal and breath sounds normal. No respiratory distress. No stridor. She has no wheezes. She has no rales. -Chest Wall: She exhibits no tenderness. ABD: The abdomen is soft. Bowel sounds are normal. She has no distension. No mass is present. There is no tenderness. There is no rebound, no guarding, no Griffith's sign and no tenderness at McBurney's point. Rovsig negative MUSC/SKEL: Normal range of motion. There is no peripheral edema, tenderness or deformity. LYMPH: No cervical adenopathy. NEURO: She is alert and oriented to person, place, and time. She has normal strength. No cranial nerve deficit or sensory deficit. Coordination and gait normal. GCS eye subscore is 4. GCS verbal subscore is 5. GCS motor subscore is 6. Cerebellar tests wnl. SKIN: Skin is warm and dry. She is not diaphoretic. PSYCH: She has a normal mood and affect. Behavior is normal. Judgment and thought content normal. Course Course 1129: The patient was evaluated in room C11. A complete history and physical exam was performed Cardiac monitoring: An order was placed for continuous cardiac monitoring. The monitor shows a rate of 60 with sinus rhythm 1456: Vital signs stable. Status post receiving 1 sublingual nitroglycerin the patient reports her chest pain is resolved. Labs are within normal limits, with the exception of troponin 0 0.019 D-dimer elevated. CTA of the chest negative for PE. Patient will be admitted to the [facility] team for chest pain rule out ACS discussed case with Dr. Sampson who will evaluate the patient. Administered Medications Sodium Chloride (Nss 1000ml) 1,000 mls @ 125 mls/hr IV .Q8H LOS Stop: 03/15/21 13:44 Last Admin: 02/13/21 14:25 Dose: 125 mls/hr Documented by: [id number] Nitroglycerin (Nitroglycerin Sl 0.4 Mg/Tab Tab) 0.4 mg SL UD PRN PRN Reason: Chest Pain Stop: 03/15/21 11:38 Last Admin: 02/13/21 13:52 Dose: 0.4 mg Documented by: [id number] Discontinued Medications Aspirin (Aspirin Chew 324 Mg) 324 mg PO NOW STA Stop: 02/13/21 11:40 Last Admin: 02/13/21 12:03 Dose: 324 mg Documented by: [id number] Sodium Chloride (Nss 1000ml) 1,000 mls @ 999 mls/hr IV .Q1H1M STA Stop: 02/13/21 12:39 Last Infusion: 02/13/21 13:00 Dose: 0 mls/hr Documented by: [id number] Admin: 02/13/21 12:04 Dose: 999 mls/hr Documented by: [id number] Ioversol (Optiray 320 125ml) 118 ml IV ONCE ONE Stop: 02/13/21 12:48 Last Admin: 02/13/21 12:48 Dose: 118 ml Documented by: [id number] Medical Decision Making Laboratory Data Result diagrams: 02/13/21 11:51 02/13/21 11:51 Labs: Lab Results 02/13/21 02/13/21 02/13/21 Range/Units 11:51 11:51 11:51 WBC 5.90 (4.8-10.8) K/uL RBC 3.41 L (4.2-5.4) M/uL Hgb 11.2 L (12.0-16.0) g/dL Hct 33.6 L (37-47) % MCV 98.5 (80-100) fL MCH 32.8 (25-34) pg MCHC 33.3 (32-36) g/dL RDW Std Deviation 48.6 H (36.4-46.3) fL RDW Coeff of Catarina 13.6 (11.5-14.5) % Plt Count 190 (130-400) K/uL MPV 8.8 (7.4-10.4) fL Immature Gran % (Auto) 0.0 % Neut % (Auto) 76.9 % Lymph % (Auto) 14.7 % [place] % (Auto) 8.0 % Eos % (Auto) 0.2 % Baso % (Auto) 0.2 % Neut # (Auto) 4.54 (1.4-6.5) K/uL Lymph # (Auto) 0.87 L (1.2-3.4) K/uL [place] # (Auto) 0.47 (0.11-0.59) K/uL Eos # (Auto) 0.01 (0-0.5) K/uL Baso # (Auto) 0.01 (0-0.2) K/uL Immature Gran # (Auto) 0.00 (0.00-0.02) K/uL PT 10.7 (9.0-12.0) Seconds INR 1.1 (0.9-1.1) APTT 26.4 (21.0-31.0) Seconds PTT Ratio 1.0 D-Dimer 1170 H* (0-500) ug/L FEU Sodium (136-145) mmol/L Potassium (3.5-5.1) mmol/L Chloride (98-107) mmol/L Carbon Dioxide (21-32) mmol/L Anion Gap (3-11) BUN (7-18) mg/dl Creatinine (0.6-1.2) mg/dl Est Cr Clr Drug Dosing ml/min Est GFR ( Amer) ml/min Est GFR (Non-Af Amer) ml/min BUN/Creatinine Ratio (10-20) Glucose (70-99) mg/dl Calcium (8.5-10.1) mg/dl Troponin I (0-0.045) ng/ml Lipase (73-393) U/L Urine Color Urine Appearance (Clear) Urine pH (4.5-7.5) Ur Specific [place] (1.000-1.030) Urine Protein (Negative) Urine Glucose (UA) (Negative) Urine Ketones (Negative) Urine Blood (Negative) Urine Nitrite (Negative) Urine Bilirubin (Negative) Urine Urobilinogen (Negative) Ur Leukocyte Esterase (Negative) 02/13/21 02/13/21 Range/Units 11:51 12:42 WBC (4.8-10.8) K/uL RBC (4.2-5.4) M/uL Hgb (12.0-16.0) g/dL Hct (37-47) % MCV (80-100) fL MCH (25-34) pg MCHC (32-36) g/dL RDW Std Deviation (36.4-46.3) fL RDW Coeff of Catarina (11.5-14.5) % Plt Count (130-400) K/uL MPV (7.4-10.4) fL Immature Gran % (Auto) % Neut % (Auto) % Lymph % (Auto) % [place] % (Auto) % Eos % (Auto) % Baso % (Auto) % Neut # (Auto) (1.4-6.5) K/uL Lymph # (Auto) (1.2-3.4) K/uL [place] # (Auto) (0.11-0.59) K/uL Eos # (Auto) (0-0.5) K/uL Baso # (Auto) (0-0.2) K/uL Immature Gran # (Auto) (0.00-0.02) K/uL PT (9.0-12.0) Seconds INR (0.9-1.1) APTT (21.0-31.0) Seconds PTT Ratio D-Dimer (0-500) ug/L FEU Sodium 140 (136-145) mmol/L Potassium 3.8 (3.5-5.1) mmol/L Chloride 107 (98-107) mmol/L Carbon Dioxide 26 (21-32) mmol/L Anion Gap 7.0 (3-11) BUN 12 (7-18) mg/dl Creatinine 1.21 H (0.6-1.2) mg/dl Est Cr Clr Drug Dosing 43.4 ml/min Est GFR ( Amer) 49.3 ml/min Est GFR (Non-Af Amer) 42.5 ml/min BUN/Creatinine Ratio 9.8 L (10-20) Glucose 110 H (70-99) mg/dl Calcium 9.5 (8.5-10.1) mg/dl Troponin I 0.019 (0-0.045) ng/ml Lipase 136 (73-393) U/L Urine Color Yellow Urine Appearance Clear (Clear) Urine pH 6.5 (4.5-7.5) Ur Specific [place] 1.009 (1.000-1.030) Urine Protein Negative (Negative) Urine Glucose (UA) Negative (Negative) Urine Ketones Negative (Negative) Urine Blood Negative (Negative) Urine Nitrite Negative (Negative) Urine Bilirubin Negative (Negative) Urine Urobilinogen Negative (Negative) Ur Leukocyte Esterase Negative (Negative) Imaging Data Chest x-ray: Radiologist's impression: XR chest 1V portable CLINICAL HISTORY: Atypical chest pain TECHNIQUE: Single frontal radiograph of the chest was obtained. Comparison: Comparison is made to chest one view 07/13/2020 FINDINGS: No lines and tubes are seen. Cardiomegaly is noted. The lungs are clear. No evidence of pleural effusion or pneumothorax. IMPRESSION: No acute chest disease. ACT 112: Negative or not required by law. Electronically signed by: Dago Coburn M.D. 02/13/2021 12:22 PM Dictated: 02/13/21 1222 Transcribed: 02/13/211221 CT scan - chest: Radiologist's impression: CT angio chest PE protocol CLINICAL HISTORY: ro PE left-sided chest pain. TECHNIQUE: Multidetector row helical CT of the chest was performed. Coronal and sagittal reformations were obtained. Automated dose lowering techniques and/or adjustment according to patient size were utilized for this exam. Comparison: Comparison is made to chest one view 02/13/2021 FINDINGS: Lungs and pleura: Bilateral lower lobe predominant atelectasis versus scarring is seen. Heart and pericardium: There is cardiomegaly without evidence of pericardial effusion. Vessels: No evidence of pulmonary embolism. Mediastinum and yvan: Unremarkable. Chest wall and lower neck: Unremarkable. Abdomen: Cholelithiasis is seen without evidence of cholecystitis. Bones: Degenerative changes in the thoracic spine. IMPRESSION: 1. No evidence of pulmonary embolism. 2. Bilateral lower lobe predominant atelectasis versus scarring. ACT 112: Negative or not required by law. Electronically signed by: Dago Coburn M.D. 02/13/2021 1:24 PM Dictated: 02/13/217 Transcribed: 02/13/211316 ECG Data Indication: chest pain Rate (beats per minute): 57 Rhythm: normal sinus Findings: + 1st degree AV block; no ST depression, no ST elevation or no prolonged QT MDM Narrative Vital signs stable. Status post receiving 1 sublingual nitroglycerin the patient reports her chest pain is resolved. Labs are within normal limits, with the exception of troponin 0 0.019 D-dimer elevated. CTA of the chest negative for PE. Patient will be admitted to the [facility] team for nevin st pain rule out ACS discussed case with Dr. Sampson who will evaluate the patient. Impression & Plan Chest pain Discharge Plan Visit Data Chief Complaint: Chest Pain Stated Complaint: CHEST PAIN, NAUSEA, DIARRHEA ED Provider: Cooper Hull Discharge Problem: Chest pain Patient Disposition: Being Evaluated by Hospitalist Forms Stand Alone Forms: [facility] Prescriptions Prescriptions: No Action isosorbide mononitrate 60 mg tablet extended release 24 hr 90 mg PO QAM Qty: 135 RF: 3 lisinopril 2.5 mg tablet 2.5 mg PO QAM Qty: 90 RF: 3 metoprolol tartrate 50 mg tablet 50 mg PO BID Qty: 180 RF: 3 atorvastatin 80 mg tablet 80 mg PO QPM Qty: 90 RF: 1 pantoprazole 40 mg tablet,delayed release (DR/EC) 40 mg PO QAM Qty: 90 RF: 1 clobetasol 0.05 % ointment 1 applic TOP BID PRN (Reason: Rash) RF: 0 ICaps AREDS [id number] capsule 1 cap PO BID RF: 0 Refresh Optive 1-0.9 % drops,gel 1 drp ophthalmic (eye) BID RF: 0 sulfamethoxazole-trimethoprim [Bactrim DS] 800-160 mg tablet 1 tab PO BID 3 Days Qty: 6 RF: 0 acetaminophen 500 mg tablet 1,000 mg PO TID PRN (Reason: arthritis ) RF: 0 aspirin 81 mg Tablet,Chewable 81 mg PO QAM RF: 0 docusate sodium 100 mg Tablet 100 mg PO DAILY PRN (Reason: STOOL SOFTNER) RF: 0 nitroglycerin 0.4 mg tablet, sublingual 0.4 mg Sublingual Q5M PRN (Reason: chest pain) RF: 0 multivitamin Tablet 1 tab PO QAM RF: 0 furosemide 40 mg tablet 40 mg PO QAM RF: 0 levothyroxine 75 mcg tablet 75 mcg PO QAM RF: 0 folic acid 1 mg tablet 2 mg PO QAM RF: 0 cholecalciferol (vitamin D3) [Vitamin D3] 1,000 unit tablet 2,000 unit PO QAM RF: 0 Referrals Referrals: Gennaro Cedeno CRNP [Primary Care Provider] -
[2021-02-13 12:02] LABS: Basophils # (auto) 0.01 K/uL (0-0.2); Basophils % (auto) 0.2 %; Eosinophils # (auto) 0.01 K/uL (0-0.5); Eosinophils % (auto) 0.2 %; Hematocrit (blood only) 33.6 % (37-47); Hemoglobin 11.2 g/dL (12.0-16.0); Lymphocytes # (auto) 0.87 K/uL (1.2-3.4); Lymphocytes % (auto) 14.7 %; Mean Corpuscular Hemoglobin 32.8 pg (25-34); Mean Corpuscular Hgb Conc 33.3 g/dL (32-36); Mean Corpuscular Volume 98.5 fL (80-100); Mean Platelet Volume 8.8 fL (7.4-10.4); Monocytes # (auto) 0.47 K/uL (0.11-0.59); Neutrophils # (auto) 4.54 K/uL (1.4-6.5); Neutrophils % (auto) 76.9 %; Platelet Count 190 K/uL (130-400); RDW Coefficient of Variation 13.6 % (11.5-14.5); RDW Standard Deviation 48.6 fL (36.4-46.3); Red Blood Count 3.41 M/uL (4.2-5.4)
[2021-02-13 12:20] LABS: BUN Creatinine Ratio 9.8 (10-20); Calcium 9.5 mg/dl (8.5-10.1); Creatinine Clr Calc Pharmacy 43.4 ml/min; Est GFR (African American) 49.3 ml/min; Est GFR (Non-African American) 42.5 ml/min; Potassium 3.8 mmol/L (3.5-5.1)
--- NOTE | 2021-02-13 12:23 | XRay Report ---
XR chest 1V portable CLINICAL HISTORY: Atypical chest pain TECHNIQUE: Single frontal radiograph of the chest was obtained. Comparison: Comparison is made to chest one view 07/13/2020 FINDINGS: No lines and tubes are seen. Cardiomegaly is noted. The lungs are clear. No evidence of pleural effus ion or pneumothorax. IMPRESSION: No acute chest disease. ACT 112: Negative or not required by law. Electronically signed by: Dago Coburn M.D. 02/13/2021 12:22 PM
[2021-02-13 12:24] LABS: INR 1.1 (0.9-1.1); Prothrombin Time 10.7 Seconds (9.0-12.0); Troponin I 0.019 ng/ml (0-0.045)
[2021-02-13 12:26] LABS: Partial Thromboplastin Time 26.4 Seconds (21.0-31.0)
[2021-02-13 12:30] LABS: D Dimer 1170 ug/L FEU (0-500)
[2021-02-13] MEDS ORDERED: OPTIRAY 320 125ml IV ONE (12:47)
[2021-02-13 12:53] LABS: Appearance Urine Clear (Clear); Bilirubin Urine Negative (Negative); Blood Urine Negative (Negative); Color Urine Yellow; Glucose Urine UA Negative (Negative); Ketones Urine Negative (Negative); Leukocyte Esterase Urine Negative (Negative); Nitrite Urine Negative (Negative); Protein Urine Negative (Negative); Specific Gravity Urine 1.009 (1.000-1.030); Urobilinogen Urine Negative (Negative); pH Urine 6.5 (4.5-7.5)
--- NOTE | 2021-02-13 13:25 | CT Scan Report ---
CT angio chest PE protocol CLINICAL HISTORY: ro PE left-sided chest pain. TECHNIQUE: Multidetector row helical CT of the chest was performed. Coronal and sagittal reformations were obtained. Automated dose lowering techniques and/or adjustment according to patient size were u tilized for this exam. Comparison: Comparison is made to chest one view 02/13/2021 FINDINGS: Lungs and pleura: Bilateral lower lobe predominant atelectasis versus scarring is seen. Heart and pericardium: There is cardiomegaly without evidence of pericardial effusion. Vessels: No evidence of pulmonary embolism. Mediastinum and yvan: Unremarkable. Chest wall and lower neck: Unremarkable. Abdomen: Cholelithiasis is seen without evidence of cholecystitis. Bones: Degenerative changes in the thoracic spine. IMPRESSION: 1. No evidence of pulmonary embolism. 2. Bilateral lower lobe predominant atelectasis versus scarring. ACT 112: Negative or not required by law. Electronically signed by: Dago Coburn M.D. 02/13/2021 1:24 PM
[2021-02-13] MEDS ORDERED: SODIUM CHLORIDE 0.9% 1000ML 1,000 ML IV SCH (13:45)
[2021-02-13] MEDS ORDERED: KETOROLAC TROMETHAMINE 15 MG/ML VIAL IV STA (14:40)
[2021-02-13 16:03] LABS: Influenza A virus by PCR Negative (Neg); Influenza B virus by PCR Negative (Neg); RSV by PCR Negative (Neg); SARS CoV2 RNA(COVID-19) InHosp NEGATIVE (Negative)
--- NOTE | 2021-02-13 16:10 | History & Physical Report ---
Date of Service February 13, 2021 Assessment & Plan (1) Chest pain: Plan: Concerning for angina although troponin neg despite many hours of chest heaviness, however does have a h/o CAD with mid LAD stent Pain resolved with nitroglycerin in ER last cath 11/2018 with 100% occluded RCA with collaterals, 30% prox LAD stenosis -admit to PCU -trend troponin -check ECHO -continue home ASA, metoprolol, statin, isosorbide -start nitropaste -no heparin gtt unless troponin trends upward -consult Cardiology -keep NPO after midnight in case of need for cardiac cath -daily ECG -follow CBC, BMP (2) Coronary artery disease: Plan: as above (3) Ischemic cardiomyopathy: Plan: previously reduced EF but most recent ECHO 2017 with normal EF (4) GERD (gastroesophageal reflux disease): Plan: continue PPI (5) History of right-sided carotid endarterectomy: Plan: continue ASA, statin (6) Rheumatoid arthritis: Plan: not on meds for this (7) Hypothyroidism: Plan: TSH 2.44 continue home LT4 Plan: DVT Proph-SCDs Dispo-admit to tele History of Present Illness Chief Complaint: Chest pain Primary Care Provider: ANA Gibson This patient is a 80-year-old female with a history of HTN, ischemic cardiomyopathy now resolved, CAD status post PCI of mid LAD 2008, hyperlipidemia, rheumatoid arthritis, HTN, carotid artery stenosis status post right carotid endarterectomy, GERD, psoriatic arthritis, hypothyroidism, osteoporosis, anemia, who presents to the ER with chest heaviness that started last night in her sleep. She reports it radiates to the left side of her neck and she had some numbness in her left fingers at times. It is associated with nausea, diaphoresis, and shortness of breath especially if she tries to walk around. The shortness of breath is resolved when she rests. It did last pretty much throughout the morning and was relieved when she came to the ER and received nitroglycerin. When I saw her for admission, she no longer had chest heaviness, but had a residual sensation of a "lump" in her epigastric region. She also reports she hurt her left flank a few days ago from turning and lifting her . Pain in left flank worse with movement or pressing in that area. In the ER, her D-dimer was elevated but her CT angiogram of the chest was negative. Her initial troponin was detectable at 0.019. Her ECG showed inferior and anterior infarct unchanged from previous. Her vital signs were all fairly within normal limits. She was given an aspirin, nitroglycerin. She will be admitted for rule out acute coronary syndrome. Allergies Allergy/AdvReac Type Severity Reaction Status Date / Time codeine Allergy Severe Hallucinati Verified 02/13/21 13:27 ng gabapentin Allergy Severe SEVERE Verified 02/13/21 13:27 ENTIRE BODY SWELLING, DIFFICULTY BREATHING tramadol Allergy Intermediate Flushing Verified 02/13/21 13:27 morphine AdvReac Mild UPSET Verified 02/13/21 13:27 STOMACH, PT STATES SHE WON'T TAKE 01/25/07 Home Medications Medication Instructions Recorded Confirmed Type aspirin 81 mg chewable tablet 81 mg PO QAM 11/05/17 02/13/21 History docusate sodium 100 mg tablet 100 mg PO DAILY PRN 11/05/17 02/13/21 History nitroglycerin 0.4 mg sublingual 0.4 mg SUBLINGUAL Q5M PRN tab 11/22/18 02/13/21 History tablet isosorbide mononitrate 60 mg 90 mg PO QAM #135 tab 01/23/20 02/13/21 Rx tablet,extended release 24 hr lisinopril 2.5 mg tablet 2.5 mg PO QAM #90 tab 03/18/20 02/13/21 Rx metoprolol tartrate 50 mg tablet 50 mg PO BID #180 tab 05/23/20 02/13/21 Rx atorvastatin 80 mg tablet 80 mg PO QPM #90 tab 12/30/20 02/13/21 Rx pantoprazole 40 mg tablet,delayed 40 mg PO QAM #90 tab 01/30/21 02/13/21 Rx release acetaminophen 500 mg tablet 1,000 mg PO TID PRN tab 02/11/21 02/13/21 History carboxymethylcellulose 1 1 drp OPHTHALMIC (EYE) BID 02/11/21 02/13/21 History %-glycerin 0.9 % eye gel drops (Refresh Optive) clobetasol 0.05 % topical ointment 1 applic TOP BID PRN gm 02/11/21 02/13/21 History sulfamethoxazole 800 1 tab PO BID 3 Days #6 tab 02/11/21 02/13/21 Rx mg-trimethoprim 160 mg tablet (Bactrim DS) vitamins A,C,H-clad-ssigka 14,320 1 cap PO BID 02/11/21 02/13/21 History unit-226 mg-200 unit capsule (ICaps AREDS) cholecalciferol (vitamin D3) 25 2,000 unit PO QAM 02/13/21 02/13/21 History mcg (1,000 unit) tablet (Vitamin D3) folic acid 1 mg tablet 2 mg PO QAM 02/13/21 02/13/21 History furosemide 40 mg tablet 40 mg PO QAM 02/13/21 02/13/21 History levothyroxine 75 mcg tablet 75 mcg PO QAM 02/13/21 02/13/21 History multivitamin 1 tab PO QAM 02/13/21 02/13/21 History Past Med/Surg History Medical History Abdominal pain, vomiting, and diarrhea Carotid stenosis, bilateral Coronary artery disease DVT prophylaxis GERD (gastroesophageal reflux disease) Hypothyroidism Ischemic cardiomyopathy Osteoarthritis Rheumatoid arthritis Methotrexate Therapy weekly Spinal stenosis STEMI (ST elevation myocardial infarction) 2006 Syncope Syncope and collapse Episode on 11/05 - present from sitting to standing Vertigo Surgical History History of right-sided carotid endarterectomy 2008 Hx of cataract surgery bilateral S/P tonsillectomy S/P tubal ligation Status post insertion of drug-eluting stent into left anterior descending (LAD) artery Status post insertion of drug-eluting stent into left anterior descending (LAD) artery Status post left knee replacement Family History Mother Diabetes Breast cancer Myocardial infarction Daughter Hypertension Other COPD (chronic obstructive pulmonary disease) Heart disease Stroke Denies family history of Ovarian cancer Prostate cancer Colorectal cancer Social History Smoking Status: Never smoker Second Hand Exposure: No; Hx Alcohol Use: No Hx Substance Use: No Preferred Language: Lebanese Communication Ability: Effective Visual Impairment: Limited Hearing Ability: Normal 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: No Beliefs That Will Affect Care: None marital status: Current Living Situation: Spouse Current Living Situation Comment: Lives with in long term apartment current occupational status: retired Other Information That Helps Us Care for You: No Feels Safe at Home: Yes Safety Concerns: Feels Safe At This Time Childhood Exposure to Second-Hand Smoke: Yes caffeine: Yes (Coffee 2 cups per day.) during the past year weight has: remained stable Dental Care, Regularly: No Physical Activity Frequency: Does not Exercise Seatbelt Use: always Sunscreen Use: Yes Assistive Devices: None Review of Systems Review of Systems: All systems reviewed & are unremarkable except as noted in HPI & below Physical Exam Constitutional: WD/WN, vitals as above Eyes: PERRL, conjunctivae normal, anicteric sclerae ENMT: external ear and nose normal, oropharynx normal Neck: trachea midline, no thyromegaly Respiratory: normal respiratory effort, lungs clear to auscultation Cardiovascular: RRR, no murmur, no edema Chest (Breasts): Chest: normal inspection of chest Gastrointestinal (Abdomen): normal bowel sounds, soft, nontender, no hepatosplenomegaly Musculoskeletal: Extremities: extremities normal to inspection; no cyanosis and no clubbing +TTP over left flank Skin: no rashes, warm and dry Neurologic: moves all extremities and awake; no focal motor deficits Psychiatric: A+Ox3, euthymic affect Lymphatic: no lymphedema Results & Data Results & Data ([facility]) Vital Signs (Past 12 Hours) Vital Signs Temp Pulse Resp BP Pulse Ox 02/13/21 15:00 66 16 165/62 H 96 02/13/21 13:51 70 16 110/58 L 96 02/13/21 11:39 97 02/13/21 11:30 36.6 C 70 146/73 H 96 Laboratory Results 02/13/21 02/13/21 02/13/21 Range/Units 15:16 12:42 11:51 WBC (4.8-10.8) K/uL RBC (4.2-5.4) M/uL Hgb (12.0-16.0) g/dL Hct (37-47) % MCV (80-100) fL MCH (25-34) pg MCHC (32-36) g/dL RDW Std Deviation (36.4-46.3) fL RDW Coeff of Catarina (11.5-14.5) % Plt Count (130-400) K/uL MPV (7.4-10.4) fL Immature Gran % (Auto) % Neut % (Auto) % Lymph % (Auto) % Green % (Auto) % Eos % (Auto) % Baso % (Auto) % Neut # (Auto) (1.4-6.5) K/uL Lymph # (Auto) (1.2-3.4) K/uL [place] # (Auto) (0.11-0.59) K/uL Eos # (Auto) (0-0.5) K/uL Baso # (Auto) (0-0.2) K/uL Immature Gran # (Auto) (0.00-0.02) K/uL PT (9.0-12.0) Seconds INR (0.9-1.1) APTT (21.0-31.0) Seconds PTT Ratio D-Dimer (0-500) ug/L FEU Sodium 140 (136-145) mmol/L Potassium 3.8 (3.5-5.1) mmol/L Chloride 107 (98-107) mmol/L Carbon Dioxide 26 (21-32) mmol/L Anion Gap 7.0 (3-11) BUN 12 (7-18) mg/dl Creatinine 1.21 H (0.6-1.2) mg/dl Est Cr Clr Drug Dosing 43.4 ml/min Est GFR ( Amer) 49.3 ml/min Est GFR (Non-Af Amer) 42.5 ml/min BUN/Creatinine Ratio 9.8 L (10-20) Glucose 110 H (70-99) mg/dl Calcium 9.5 (8.5-10.1) mg/dl Troponin I 0.019 (0-0.045) ng/ml Lipase 136 (73-393) U/L Urine Color Yellow Urine Appearance Clear (Clear) Urine pH 6.5 (4.5-7.5) Ur Specific [place] 1.009 (1.000-1.030) Urine Protein Negative (Negative) Urine Glucose (UA) Negative (Negative) Urine Ketones Negative (Negative) Urine Blood Negative (Negative) Urine Nitrite Negative (Negative) Urine Bilirubin Negative (Negative) Urine Urobilinogen Negative (Negative) Ur Leukocyte Esterase Negative (Negative) SARS-CoV-2 (PCR) NEGATIVE (Negative) Influenza Type A (PCR) Negative (Neg) Influenza Type B (PCR) Negative (Neg) RSV (RT-PCR) Negative (Neg) 02/13/21 02/13/21 02/13/21 Range/Units 11:51 11:51 11:51 WBC 5.90 (4.8-10.8) K/uL RBC 3.41 L (4.2-5.4) M/uL Hgb 11.2 L (12.0-16.0) g/dL Hct 33.6 L (37-47) % MCV 98.5 (80-100) fL MCH 32.8 (25-34) pg MCHC 33.3 (32-36) g/dL RDW Std Deviation 48.6 H (36.4-46.3) fL RDW Coeff of Catarina 13.6 (11.5-14.5) % Plt Count 190 (130-400) K/uL MPV 8.8 (7.4-10.4) fL Immature Gran % (Auto) 0.0 % Neut % (Auto) 76.9 % Lymph % (Auto) 14.7 % [place] % (Auto) 8.0 % Eos % (Auto) 0.2 % Baso % (Auto) 0.2 % Neut # (Auto) 4.54 (1.4-6.5) K/uL Lymph # (Auto) 0.87 L (1.2-3.4) K/uL [place] # (Auto) 0.47 (0.11-0.59) K/uL Eos # (Auto) 0.01 (0-0.5) K/uL Baso # (Auto) 0.01 (0-0.2) K/uL Immature Gran # (Auto) 0.00 (0.00-0.02) K/uL PT 10.7 (9.0-12.0) Seconds INR 1.1 (0.9-1.1) APTT 26.4 (21.0-31.0) Seconds PTT Ratio 1.0 D-Dimer 1170 H* (0-500) ug/L FEU Sodium (136-145) mmol/L Potassium (3.5-5.1) mmol/L Chloride (98-107) mmol/L Carbon Dioxide (21-32) mmol/L Anion Gap (3-11) BUN (7-18) mg/dl Creatinine (0.6-1.2) mg/dl Est Cr Clr Drug Dosing ml/min Est GFR ( Amer) ml/min Est GFR (Non-Af Amer) ml/min BUN/Creatinine Ratio (10-20) Glucose (70-99) mg/dl Calcium (8.5-10.1) mg/dl Troponin I (0-0.045) ng/ml Lipase (73-393) U/L Urine Color Urine Appearance (Clear) Urine pH (4.5-7.5) Ur Specific [place] (1.000-1.030) Urine Protein (Negative) Urine Glucose (UA) (Negative) Urine Ketones (Negative) Urine Blood (Negative) Urine Nitrite (Negative) Urine Bilirubin (Negative) Urine Urobilinogen (Negative) Ur Leukocyte Esterase (Negative) SARS-CoV-2 (PCR) (Negative) Influenza Type A (PCR) (Neg) Influenza Type B (PCR) (Neg) RSV (RT-PCR) (Neg) Diagnostic Findings Chest X-Ray 02/13/21 11:39 XR chest 1V portable CLINICAL HISTORY: Atypical chest pain TECHNIQUE: Single frontal radiograph of the chest was obtained. Comparison: Comparison is made to chest one view 07/13/2020 FINDINGS: No lines and tubes are seen. Cardiomegaly is noted. The lungs are clear. No evidence of pleural effusion or pneumothorax. IMPRESSION: No acute chest disease. ACT 112: Negative or not required by law. Electronically signed by: Dago Coburn M.D. 02/13/2021 12:22 PM Chest CTA 02/13/21 12:30 CT angio chest PE protocol CLINICAL HISTORY: ro PE left-sided chest pain. TECHNIQUE: Multidetector row helical CT of the chest was performed. Coronal and sagittal reformations were obtained. Automated dose lowering techniques and/or adjustment according to patient size were utilized for this exam. Comparison: Comparison is made to chest one view 02/13/2021 FINDINGS: Lungs and pleura: Bilateral lower lobe predominant atelectasis versus scarring is seen. Heart and pericardium: There is cardiomegaly without evidence of pericardial effusion. Vessels: No evidence of pulmonary embolism. Mediastinum and yvan: Unremarkable. Chest wall and lower neck: Unremarkable. Abdomen: Cholelithiasis is seen without evidence of cholecystitis. Bones: Degenerative changes in the thoracic spine. IMPRESSION: 1. No evidence of pulmonary embolism. 2. Bilateral lower lobe predominant atelectasis versus scarring. ACT 112: Negative or not required by law. Electronically signed by: Dago Coburn M.D. 02/13/2021 1:24 PM ECG Additional Comments: ECG on 02/13/2021 1149 with sinus bradycardia with first-degree AV block, inferior infarct, anterior infarct-appears unchanged from previous Code Status & VTE Plan VTE Prophylaxis Plan VTE Prophylaxis will be ordered: Yes PG Care Time/CCT Total # of Minutes Spent Total Time Spent with Patient: Total time spent is greater than 50% in coordination of care (as documented) at patient's floor/unit and/or counseling patient: Coding Level of Care Code INT OBSERVATION CARE 70M LVL 3 Diagnoses Chest pain R07.9 Chest pain type: unspecified Ischemic cardiomyopathy I25.5 GERD (gastroesophageal reflux disease) K21.9 History of right-sided carotid endarterectomy Z98.890 Rheumatoid arthritis M06.9 Hypothyroidism E03.9 Hypothyroidism type: acquired Coronary artery disease I25.118 Associated angina: with stable angina Coronary Disease-Associated Artery/Lesion type: [place] artery [place] vs. transplanted heart: [place] heart (1) Coronary artery disease Associated angina: with stable angina Coronary Disease-Associated Artery/Lesion type: [place] artery [place] vs. transplanted heart: [place] heart Qualified Code(s): I25.118 - Atherosclerotic heart disease of [place] coronary artery with other forms of angina pectoris (2) Hypothyroidism Hypothyroidism type: acquired Qualified Code(s): E03.9 - Hypothyroidism, unspecified (3) Chest pain Chest pain type: unspecified Qualified Code(s): R07.9 - Chest pain, unspecified
[2021-02-13] MEDS ORDERED: ONDANSETRON INJ 2 MG/ML 2 ML VIAL IV PRN (18:38)
[2021-02-13] MEDS ORDERED: POLYETHYLENE (MIRALAX) 17 GM PACK PO PRN (18:38)
[2021-02-13] MEDS ORDERED: DOCUSATE SODIUM 100 MG CAP PO PRN (18:53)
[2021-02-13] MEDS: METOPROLOL TARTRATE 50 MG TAB PO SCH (20:41)
[2021-02-13] MEDS: ARTIFICIAL TEARS OP SCH (20:45)
[2021-02-13] MEDS: NITROGLYCERIN 2% OINTMENT 30GM TUBE EXT SCH ×2 (20:50→23:08)
[2021-02-13] MEDS ORDERED: ATORVASTATIN 40 MG TAB PO SCH (21:00)
[2021-02-14] MEDS: ACETAMINOPHEN 500 MG TAB PO PRN ×2 (04:07→08:12)
[2021-02-14] MEDS: NITROGLYCERIN 2% OINTMENT 30GM TUBE EXT SCH ×2 (05:15→11:53)
[2021-02-14] MEDS ORDERED: LEVOTHYROXINE SODIUM 75 MCG TABLET PO SCH (06:30)
--- NOTE | 2021-02-14 07:45 | Hospitalist Progress Note ---
Date of Service February 14, 2021 Assessment & Plan (1) Chest pain: (2) History of ST elevation myocardial infarction (STEMI): (3) Coronary artery disease: (4) Ischemic cardiomyopathy: (5) Hypertension: (6) GERD (gastroesophageal reflux disease): (7) Rheumatoid arthritis: (8) Hypothyroidism: (9) Anemia: (10) Elevated glucose: Plan: 1-5Chest pain / CAD/ischemic cardiomyopathy myopathy / hypertension Plan: Concerning for angina although troponin neg despite many hours of chest heaviness, however does have a h/o CAD with mid LAD stent Pain resolved with nitroglycerin in ER last cath 11/2018 with 100% occluded RCA with collaterals, 30% prox LAD stenosis -admit to PCU -trend troponin -check ECHO -continue home ASA, metoprolol, statin, isosorbide -start nitropaste -no heparin gtt unless troponin trends upward -consult Cardiology -keep NPO after midnight in case of need for cardiac cath -daily ECG -follow CBC, BMP cardiology recommends dobutamine stress echo along with maximizing anti anginal therapy 6. GERD Continue Protonix 40 mg b.i.d. no overnight symptoms 7. rheumatoid arthritis, chronic low back pain Continue [id number] medications Evaluation by PT/OT after cardiac evaluation completed Consider x-ray of lumbar spine if symptoms not improving Patient reports using walking Rollator in home 8. hypothyroid Continue levothyroxine 75 mcg 9. Anemia likely multifactorial will check iron levels in the a.m. 10. 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 Treated for UTI muscle strain Denies change in her symptoms or worsening since that office visit Continues have underlying back discomfort No dysuria, frequency or abdominal pain Review of Systems Constitutional: no fever and no chills Respiratory: no cough, no chest congestion, no dyspnea and no wheezing Cardiovascular: no chest pain, no palpitations and no edema Gastrointestinal: no abdominal pain, no heartburn, no nausea, no vomiting and no change in bowel habits Neurologic: no gait abnormality, no falls and no headache(s) Physical Exam Physical Exam: Constitutional: WD/WN, vitals as above Respiratory: Effort normal, CTA B/L CV: RRR, no murmur, no edema Abdomen: normal bowel sounds, soft, nontender, no hepatosplenomegaly Neurologic: grossly intact Results & Data Results & Data ([facility]) Vital Signs (Past 12 Hours) Vital Signs Temp Pulse Pulse Resp BP Pulse Ox 02/14/21 03:48 36.6 C 67 16 102/55 L 97 02/14/21 00:20 43 L 02/13/21 23:09 138/73 02/13/21 22:59 36.5 C 55 L 22 105/67 96 Laboratory Results Laboratory Results - last 24 hr 02/13/21 02/13/21 02/13/21 11:51 11:51 11:51 WBC 5.90 RBC 3.41 L Hgb 11.2 L Hct 33.6 L MCV 98.5 MCH 32.8 MCHC 33.3 RDW Std Deviation 48.6 H RDW Coeff of Catarina 13.6 Plt Count 190 MPV 8.8 Immature Gran % (Auto) 0.0 Neut % (Auto) 76.9 Lymph % (Auto) 14.7 [place] % (Auto) 8.0 Eos % (Auto) 0.2 Baso % (Auto) 0.2 Neut # (Auto) 4.54 Lymph # (Auto) 0.87 L [place] # (Auto) 0.47 Eos # (Auto) 0.01 Baso # (Auto) 0.01 Immature Gran # (Auto) 0.00 PT 10.7 INR 1.1 APTT 26.4 PTT Ratio 1.0 D-Dimer 1170 H* Sodium Potassium Chloride Carbon Dioxide Anion Gap BUN Creatinine Est Cr Clr Drug Dosing Est GFR ( Amer) Est GFR (Non-Af Amer) BUN/Creatinine Ratio Glucose Calcium Troponin I Lipase Urine Color Urine Appearance Urine pH Ur Specific [place] Urine Protein Urine Glucose (UA) Urine Ketones Urine Blood Urine Nitrite Urine Bilirubin Urine Urobilinogen Ur Leukocyte Esterase SARS-CoV-2 (PCR) Influenza Type A (PCR) Influenza Type B (PCR) RSV (RT-PCR) 02/13/21 02/13/21 02/13/21 11:51 12:42 15:16 WBC RBC Hgb Hct MCV MCH MCHC RDW Std Deviation RDW Coeff of Catarina Plt Count MPV Immature Gran % (Auto) Neut % (Auto) Lymph % (Auto) [place] % (Auto) Eos % (Auto) Baso % (Auto) Neut # (Auto) Lymph # (Auto) [place] # (Auto) Eos # (Auto) Baso # (Auto) Immature Gran # (Auto) PT INR APTT PTT Ratio D-Dimer Sodium 140 Potassium 3.8 Chloride 107 Carbon Dioxide 26 Anion Gap 7.0 BUN 12 Creatinine 1.21 H Est Cr Clr Drug Dosing 43.4 Est GFR ( Amer) 49.3 Est GFR (Non-Af Amer) 42.5 BUN/Creatinine Ratio 9.8 L Glucose 110 H Calcium 9.5 Troponin I 0.019 Lipase 136 Urine Color Yellow Urine Appearance Clear Urine pH 6.5 Ur Specific [place] 1.009 Urine Protein Negative Urine Glucose (UA) Negative Urine Ketones Negative Urine Blood Negative Urine Nitrite Negative Urine Bilirubin Negative Urine Urobilinogen Negative Ur Leukocyte Esterase Negative SARS-CoV-2 (PCR) NEGATIVE Influenza Type A (PCR) Negative Influenza Type B (PCR) Negative RSV (RT-PCR) Negative 02/13/21 02/14/21 18:53 01:09 WBC RBC Hgb Hct MCV MCH MCHC RDW Std Deviation RDW Coeff of Catarina Plt Count MPV Immature Gran % (Auto) Neut % (Auto) Lymph % (Auto) [place] % (Auto) Eos % (Auto) Baso % (Auto) Neut # (Auto) Lymph # (Auto) [place] # (Auto) Eos # (Auto) Baso # (Auto) Immature Gran # (Auto) PT INR APTT PTT Ratio D-Dimer Sodium Potassium Chloride Carbon Dioxide Anion Gap BUN Creatinine Est Cr Clr Drug Dosing Est GFR ( Amer) Est GFR (Non-Af Amer) BUN/Creatinine Ratio Glucose Calcium Troponin I < 0.015 < 0.015 Lipase Urine Color Urine Appearance Urine pH Ur Specific [place] Urine Protein Urine Glucose (UA) Urine Ketones Urine Blood Urine Nitrite Urine Bilirubin Urine Urobilinogen Ur Leukocyte Esterase SARS-CoV-2 (PCR) Influenza Type A (PCR) Influenza Type B (PCR) RSV (RT-PCR) Diagnostic Findings Chest X-Ray 02/13/21 11:39 XR chest 1V portable CLINICAL HISTORY: Atypical chest pain TECHNIQUE: Single frontal radiograph of the chest was obtained. Comparison: Comparison is made to chest one view 07/13/2020 FINDINGS: No lines and tubes are seen. Cardiomegaly is noted. The lungs are clear. No evidence of pleural effusion or pneumothorax. IMPRESSION: No acute chest disease. ACT 112: Negative or not required by law. Electronically signed by: Dago Coburn M.D. 02/13/2021 12:22 PM Chest CTA 02/13/21 12:30 CT angio chest PE protocol CLINICAL HISTORY: ro PE left-sided chest pain. TECHNIQUE: Multidetector row helical CT of the chest was performed. Coronal and sagittal reformations were obtained. Automated dose lowering techniques and/or adjustment according to patient size were utilized for this exam. Comparison: Comparison is made to chest one view 02/13/2021 FINDINGS: Lungs and pleura: Bilateral lower lobe predominant atelectasis versus scarring is seen. Heart and pericardium: There is cardiomegaly without evidence of pericardial effusion. Vessels: No evidence of pulmonary embolism. Mediastinum and yvan: Unremarkable. Chest wall and lower neck: Unremarkable. Abdomen: Cholelithiasis is seen without evidence of cholecystitis. Bones: Degenerative changes in the thoracic spine. IMPRESSION: 1. No evidence of pulmonary embolism. 2. Bilateral lower lobe predominant atelectasis versus scarring. ACT 112: Negative or not required by law. Electronically signed by: Dago Coburn M.D. 02/13/2021 1:24 PM PG Care Time/CCT Total # of Minutes Spent Total Time Spent with Patient: Total time spent is greater than 50% in coordination of care (as documented) at patient's floor/unit and/or counseling patient: Coding Level of Care Code 33441 Subseq Hosp Care Lvl 3 Diagnoses Chest pain R07.9 Chest pain type: unspecified History of ST elevation myocardial infarction (STEMI) I25.2 Coronary artery disease I25.118 Associated angina: with stable angina Coronary Disease-Associated Artery/Lesion type: [place] artery [place] vs. transplanted heart: [place] heart Ischemic cardiomyopathy I25.5 Hypertension I10 GERD (gastroesophageal reflux disease) K21.9 Rheumatoid arthritis M06.9 Hypothyroidism E03.9 Hypothyroidism type: acquired Anemia D64.9 Elevated glucose R73.09 (1) Coronary artery disease Associated angina: with stable angina Coronary Disease-Associated Artery/Lesion type: [place] artery [place] vs. transplanted heart: [place] heart Qualified Code(s): I25.118 - Atherosclerotic heart disease of [place] coronary artery with other forms of angina pectoris (2) Hypothyroidism Hypothyroidism type: acquired Qualified Code(s): E03.9 - Hypothyroidism, unspecified (3) Chest pain Chest pain type: unspecified Qualified Code(s): R07.9 - Chest pain, unspecified
[2021-02-14] MEDS: METOPROLOL TARTRATE 50 MG TAB PO SCH (07:48)
[2021-02-14 08:16] LABS: Basophils # (auto) 0.01 K/uL (0-0.2); Basophils % (auto) 0.2 %; Eosinophils # (auto) 0.04 K/uL (0-0.5); Eosinophils % (auto) 0.8 %; Hematocrit (blood only) 32.2 % (37-47); Hemoglobin 10.6 g/dL (12.0-16.0); Immature Granulocytes # (auto) 0.01 K/uL (0.00-0.02); Immature Granulocytes % (auto) 0.2 %; Lymphocytes # (auto) 1.03 K/uL (1.2-3.4); Lymphocytes % (auto) 20.7 %; Mean Corpuscular Hemoglobin 32.8 pg (25-34); Mean Corpuscular Hgb Conc 32.9 g/dL (32-36); Mean Corpuscular Volume 99.7 fL (80-100); Mean Platelet Volume 9.1 fL (7.4-10.4); Monocytes # (auto) 0.55 K/uL (0.11-0.59); Neutrophils # (auto) 3.34 K/uL (1.4-6.5); Neutrophils % (auto) 67.1 %; Platelet Count 174 K/uL (130-400); RDW Coefficient of Variation 13.8 % (11.5-14.5); RDW Standard Deviation 49.8 fL (36.4-46.3); Red Blood Count 3.23 M/uL (4.2-5.4); White Blood Count 4.98 K/uL (4.8-10.8)
[2021-02-14 08:36] LABS: BUN Creatinine Ratio 12.3 (10-20); Creatinine Clr Calc Pharmacy 51.3 ml/min; Est GFR (African American) 57.8 ml/min; Est GFR (Non-African American) 49.9 ml/min; Potassium 4.2 mmol/L (3.5-5.1)
[2021-02-14] MEDS ORDERED: CHOLECALCIFEROL 1,000 UNITS 25 MCG TAB PO SCH (09:00)
[2021-02-14] MEDS ORDERED: ASPIRIN 81 MG ECTAB PO SCH (09:00)
[2021-02-14] MEDS ORDERED: PANTOprazole 40 MG TAB PO SCH (09:00)
[2021-02-14] MEDS ORDERED: ISOSORBIDE MONO EXTENDED REL 30 MG TABCR PO SCH (09:00)
[2021-02-14] MEDS ORDERED: FOLIC ACID 1 MG TAB PO SCH (09:00)
[2021-02-14] MEDS: ARTIFICIAL TEARS OP SCH (09:00)
[2021-02-14] MEDS ORDERED: lisinopril 2.5 MG TAB PO SCH (09:00)
--- NOTE | 2021-02-14 09:38 | XCELERA ---
[id number]
--- NOTE | 2021-02-14 11:48 | Cardiology Consultation ---
Date of Consultation February 14, 2021 Assessment & Plan (1) Chest pain: --post prior PCI with drug-eluting stent to LAD, known occluded right coronary artery 2. Ischemic cardiomyopathy, EF normalized 3. Hypertension 4. Dyslipidemia--on high-intensity statin 6. Carotid artery disease status post right carotid endarterectomy-- approximately 70% stenosis in distal right CCA and 70% stenosis in left ICA bulb Patient's symptoms do raise concern for acute coronary syndrome. However her prolonged symptoms, negative cardiac enzymes and ECG, and unremarkable echo are reassuring. 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 Recommend additional risk stratification. Plan to perform dobutamine stress echocardiogram to rule out LAD territory, high risk disease. If stress test is negative will attempt to maximize antianginal therapy. Thank you for allowing us to participate in the care of this patient. Supervising Physician Co-Signing Physician Notes Patient seen and examined. Agree with assessment and plan as outlined by DANNY Robert. Stressful time recently with increased home, family demands. Recent increase in exertional chest pain and episode of prolonged rest chest pain yesterday relieved with nitrates. Sinus rhythm. No signs of heart failure on exam. Trop/ECG negative. Stress echo reviewed - dobutamine induced inferior hypokinesis consistent with known RCA occlusion. Summary: No objective findings of ischemia. Low suspicion for new high risk CAD. Increase antianginal therapy - Imdur increased from 90mg to 120mg. Continue metoprolol. Ok with discharge today. Follow-up with cardiology in 4 weeks. History of Present Illness Reason for Consultation: Chest pain Attending Physician: Lex Hinojosa DO History of Present Illness Mrs. Stewart is a very pleasant 80 year old woman well known to us from the outpatient setting. She is being seen today for evaluation of chest pain. Medical history significant for coronary artery disease (RCA SAP PPM CONSULTANT, LAD PCI), history of ischemic cardiomyopathy, hypertension, dyslipidemia, carotid artery disease post right CEA (70% stenosis in distal right CCA and 70% stenosis in left ICA bulb). 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 She had repeat attempted PCI in March 2007 to her right coronary artery but again intervention was unsuccessful. Patient also has a history prior PCI with drug-eluting stent to her mid LAD in the setting of stable ischemic heart disease. Her most recent heart catheterization was done in August of 2014 at which time she had a patent stent in the mid-LAD, normal circumflex artery with [id number] collaterals and 100 percent occluded RCA. In September 2015 endorsed worsening dyspnea on exertion as well as generalized fatigue and some mild lower extremity edema. Her Lasix dose was increased from 20-40 milligrams and a pharmacologic SPECT was obtained which showed new moderate LV dysfunction with an EF 35-40 percent, predominantly septal and apical infarct with no significant ischemia. Admitted with syncopal episode in 10/2017. Echo showed preserved LV function. Or monitor briefly no reported events. Repeat CTA showed moderate bilateral carotid disease. In 2018 she underwent cardiac catheterization in the setting of exertional neck/shoulder pain. This showed 100% proximal RCA chronic total occlusion, fills partially via right to right and left to right collaterals. Widely patent mid LAD stent, 30% proximal disease. Patient was admitted to [facility] yesterday with chest pain. She states she has been feeling poorly since the beginning of the week. She had back pain and was felt to have a UTI, she was started on Bactrim. Wednesday evening she developed chest pressure/heaviness with associated dyspnea. She went to bed and was awoken during the night with diaphoresis. Yesterday morning she continues to have chest discomfort which worsened with activity therefore she called 911. Chest pain was relieved with sublingual nitro. Chest pain returned later in the day and resolved with a nitro patch. States chest pain is largely resolved at this point. Occasionally has a "twinge" with certain movements. Denies any dyspnea, orthopnea or PND. Her suffered a stroke several months ago and since then patient has been much more active at home caring for him and performing house work that he used to perform. She has noticed over the past 1-2 months intermittent chest heaviness and dyspnea with exertion. No palpitations, lightheadedness, near syncope or syncope. Initial troponin 0.019, undetectable since. Echocardiogram with normal LV function and no regional wall motion abnormalities. No acute changes on EKG. Allergies Allergy/AdvReac Type Severity Reaction Status Date / Time codeine Allergy Severe Hallucinati Verified 02/13/21 13:27 ng gabapentin Allergy Severe SEVERE Verified 02/13/21 13:27 ENTIRE BODY SWELLING, DIFFICULTY BREATHING tramadol Allergy Intermediate Flushing Verified 02/13/21 13:27 morphine AdvReac Mild UPSET Verified 02/13/21 13:27 STOMACH, PT STATES SHE WON'T TAKE 01/25/07 Home Medications Medication Instructions Recorded Confirmed Type aspirin 81 mg chewable tablet 81 mg PO QAM 11/05/17 02/13/21 History docusate sodium 100 mg tablet 100 mg PO DAILY PRN 11/05/17 02/13/21 History nitroglycerin 0.4 mg sublingual 0.4 mg SUBLINGUAL Q5M PRN tab 11/22/18 02/13/21 History tablet lisinopril 2.5 mg tablet 2.5 mg PO QAM #90 tab 03/18/20 02/13/21 Rx metoprolol tartrate 50 mg tablet 50 mg PO BID #180 tab 05/23/20 02/13/21 Rx atorvastatin 80 mg tablet 80 mg PO QPM #90 tab 12/30/20 02/13/21 Rx pantoprazole 40 mg tablet,delayed 40 mg PO QAM #90 tab 01/30/21 02/13/21 Rx release acetaminophen 500 mg tablet 1,000 mg PO TID PRN tab 02/11/21 02/13/21 History carboxymethylcellulose 1 1 drp OPHTHALMIC (EYE) BID 02/11/21 02/13/21 History %-glycerin 0.9 % eye gel drops (Refresh Optive) clobetasol 0.05 % topical ointment 1 applic TOP BID PRN gm 02/11/21 02/13/21 History vitamins A,C,Z-gyny-ghvulo 14,320 1 cap PO BID 02/11/21 02/13/21 History unit-226 mg-200 unit capsule (ICaps AREDS) cholecalciferol (vitamin D3) 25 2,000 unit PO QAM 02/13/21 02/13/21 History mcg (1,000 unit) tablet (Vitamin D3) folic acid 1 mg tablet 2 mg PO QAM 02/13/21 02/13/21 History furosemide 40 mg tablet 40 mg PO QAM 02/13/21 02/13/21 History levothyroxine 75 mcg tablet 75 mcg PO QAM 02/13/21 02/13/21 History multivitamin 1 tab PO QAM 02/13/21 02/13/21 History isosorbide mononitrate 60 mg 120 mg PO QAM #180 tab 02/14/21 Rx tablet,extended release 24 hr Patient History Medical History (Updated 02/14/21 @ 07:48 by Lex Hinojosa DO) Abdominal pain, vomiting, and diarrhea Carotid stenosis, bilateral Coronary artery disease DVT prophylaxis GERD (gastroesophageal reflux disease) History of ST elevation myocardial infarction (STEMI) Hypothyroidism Ischemic cardiomyopathy Osteoarthritis Prolonged QT interval Rheumatoid arthritis Methotrexate Therapy weekly Right knee pain Spinal stenosis STEMI (ST elevation myocardial infarction) 2006 Syncope Syncope Syncope and collapse Episode on 11/05 - present from sitting to standing Vertigo Surgical History (Updated 02/14/21 @ 07:44 by Lex Hinojosa DO) History of right-sided carotid endarterectomy 2008 Hx of cataract surgery bilateral S/P tonsillectomy S/P tubal ligation Status post insertion of drug-eluting stent into left anterior descending (LAD) artery Status post insertion of drug-eluting stent into left anterior descending (LAD) artery Status post left knee replacement Family History Mother Diabetes Breast cancer Myocardial infarction Daughter Hypertension Other COPD (chronic obstructive pulmonary disease) Heart disease Stroke Denies family history of Ovarian cancer Prostate cancer Colorectal cancer Social History Smoking Status: Never smoker Second Hand Exposure: No; Hx Alcohol Use: No Hx Substance Use: No Preferred Language: Estonian Communication Ability: Effective Visual Impairment: Limited Hearing Ability: Normal Geomorphologist Required: No Beliefs That Will Affect Care: None marital status: Current Living Situation: Spouse Current Living Situation Comment: Lives with in longterm apartment current occupational status: retired How many Children do You have: 2 Feels Safe at Home: Yes Childhood Exposure to Second-Hand Smoke: Yes caffeine: Yes (Coffee 2 cups per day.) during the past year weight has: remained stable Dental Care, Regularly: No Physical Activity Frequency: Does not Exercise Seatbelt Use: always Sunscreen Use: Yes Assistive Devices: Walker Physical Exam Physical Exam: General: No acute distress, comfortable. HEENT: Head is normal. PERRLA. EOMI. Sclerae anicteric. Lungs: Few bibasilar crackles. Cardiac: Regular rate and rhythm. S1-S2 normal. 1/6 systolic murmur Extremities/vascular: Well perfused. Trace pretibial edema bilaterally. Right radial pulse diminished, left radial 2+ Neurologic: Nonfocal Psychiatric: Affect appropriate. Alert and oriented. Results & Data ([facility]) Vital Signs (Past 12 Hours) Vital Signs Temp Pulse Pulse Resp BP Pulse Ox 02/14/21 08:04 36.9 C 66 18 142/69 H 95 02/14/21 03:48 36.6 C 67 16 102/55 L 97 02/14/21 00:20 43 L Laboratory Results Laboratory Results - last 24 hr 02/13/21 02/13/21 02/13/21 11:51 11:51 11:51 WBC RBC Hgb Hct MCV MCH MCHC RDW Std Deviation RDW Coeff of Catarina Plt Count MPV Immature Gran % (Auto) Neut % (Auto) Lymph % (Auto) Sabine % (Auto) Eos % (Auto) Baso % (Auto) Neut # (Auto) Lymph # (Auto) Sabine # (Auto) Eos # (Auto) Baso # (Auto) Immature Gran # (Auto) PT 10.7 INR 1.1 APTT 26.4 PTT Ratio 1.0 D-Dimer 1170 H* Sodium Potassium Chloride Carbon Dioxide Anion Gap BUN Creatinine Est Cr Clr Drug Dosing Est GFR ( Amer) Est GFR (Non-Af Amer) BUN/Creatinine Ratio Glucose Calcium Troponin I 0.019 Urine Color Urine Appearance Urine pH Ur Specific Bimble Urine Protein Urine Glucose (UA) Urine Ketones Urine Blood Urine Nitrite Urine Bilirubin Urine Urobilinogen Ur Leukocyte Esterase SARS-CoV-2 (PCR) Influenza Type A (PCR) Influenza Type B (PCR) RSV (RT-PCR) 02/13/21 02/13/21 02/13/21 12:42 15:16 18:53 WBC RBC Hgb Hct MCV MCH MCHC RDW Std Deviation RDW Coeff of Catarina Plt Count MPV Immature Gran % (Auto) Neut % (Auto) Lymph % (Auto) Sabine % (Auto) Eos % (Auto) Baso % (Auto) Neut # (Auto) Lymph # (Auto) Sabine # (Auto) Eos # (Auto) Baso # (Auto) Immature Gran # (Auto) PT INR APTT PTT Ratio D-Dimer Sodium Potassium Chloride Carbon Dioxide Anion Gap BUN Creatinine Est Cr Clr Drug Dosing Est GFR ( Amer) Est GFR (Non-Af Amer) BUN/Creatinine Ratio Glucose Calcium Troponin I < 0.015 Urine Color Yellow Urine Appearance Clear Urine pH 6.5 Ur Specific Bimble 1.009 Urine Protein Negative Urine Glucose (UA) Negative Urine Ketones Negative Urine Blood Negative Urine Nitrite Negative Urine Bilirubin Negative Urine Urobilinogen Negative Ur Leukocyte Esterase Negative SARS-CoV-2 (PCR) NEGATIVE Influenza Type A (PCR) Negative Influenza Type B (PCR) Negative RSV (RT-PCR) Negative 02/14/21 02/14/21 02/14/21 01:09 07:47 07:56 WBC 4.98 RBC 3.23 L Hgb 10.6 L Hct 32.2 L MCV 99.7 MCH 32.8 MCHC 32.9 RDW Std Deviation 49.8 H RDW Coeff of Catarina 13.8 Plt Count 174 MPV 9.1 Immature Gran % (Auto) 0.2 Neut % (Auto) 67.1 Lymph % (Auto) 20.7 Sabine % (Auto) 11.0 Eos % (Auto) 0.8 Baso % (Auto) 0.2 Neut # (Auto) 3.34 Lymph # (Auto) 1.03 L Sabine # (Auto) 0.55 Eos # (Auto) 0.04 Baso # (Auto) 0.01 Immature Gran # (Auto) 0.01 PT INR APTT PTT Ratio D-Dimer Sodium 141 Potassium 4.2 Chloride 111 H Carbon Dioxide 25 Anion Gap 5.0 BUN 13 Creatinine 1.06 Est Cr Clr Drug Dosing 51.3 Est GFR ( Amer) 57.8 Est GFR (Non-Af Amer) 49.9 BUN/Creatinine Ratio 12.3 Glucose 99 Calcium 9.0 Troponin I < 0.015 Urine Color Urine Appearance Urine pH Ur Specific Bimble Urine Protein Urine Glucose (UA) Urine Ketones Urine Blood Urine Nitrite Urine Bilirubin Urine Urobilinogen Ur Leukocyte Esterase SARS-CoV-2 (PCR) Influenza Type A (PCR) Influenza Type B (PCR) RSV (RT-PCR) PG Care Time/CCT Total # of Minutes Spent Total Time Spent with Patient: Total time spent is greater than 50% in coordination of care (as documented) at patient's floor/unit and/or counseling patient: Coding Level of Care Code 65290 Initial Inpt Care Lvl 3 Diagnoses Chest pain R07.9 Chest pain type: unspecified (1) Chest pain Chest pain type: unspecified Qualified Code(s): R07.9 - Chest pain, unspecified
[2021-02-14] MEDS ORDERED: ATROPINE SULFATE 0.1 MG/ML 10ML SYR IV ONE (12:20)
[2021-02-14] MEDS ORDERED: DOBUTamine HCL 12.5 MG/ML 20 ML VIAL IV ONE (12:21)
[2021-02-14] MEDS ORDERED: METOPROLOL TARTRATE 1 MG/ML VIAL IV ONE (12:21)
--- NOTE | 2021-02-14 17:14 | Discharge Summary ---
Date of Service February 14, 2021 Admission HPI Per Admitting Provider This patient is a 80-year-old female with a history of HTN, ischemic cardiomyopathy now resolved, CAD status post PCI of mid LAD 2008, hyperlipidemia, rheumatoid arthritis, HTN, carotid artery stenosis status post right carotid endarterectomy, GERD, psoriatic arthritis, hypothyroidism, osteoporosis, anemia, who presents to the ER with chest heaviness that started last night in her sleep. She reports it radiates to the left side of her neck and she had some numbness in her left fingers at times. It is associated with nausea, diaphoresis, and shortness of breath especially if she tries to walk around. The shortness of breath is resolved when she rests. It did last pretty much throughout the morning and was relieved when she came to the ER and received nitroglycerin. When I saw her for admission, she no longer had chest heaviness, but had a residual sensation of a "lump" in her epigastric region. She also reports she hurt her left flank a few days ago from turning and lifting her . Pain in left flank worse with movement or pressing in that area. In the ER, her D-dimer was elevated but her CT angiogram of the chest was negative. Her initial troponin was detectable at 0.019. Her ECG showed inferior and anterior infarct unchanged from previous. Her vital signs were all fairly within normal limits. She was given an aspirin, nitroglycerin. She will be admitted for rule out acute coronary syndrome. Principal Diagnosis Stable angina Discharge Exam The patient appeared well Vital signs as documented. Lungs are clear to auscultation and appear unlabored Cardiac exam, Rhythm is regular.. No murmurs, rubs or gallops. Abdominal exam reveals normal bowel sounds, soft non tender, no masses Extremities are nonedematous and both pedal pulses are normal. Neurologic exam is alert and oriented, no focal loss of strength or sensation Skin is without bruises or rashes Psychologically is without concerns for anxiety or depression. Discharge Data Allergies Allergy/AdvReac Type Severity Reaction Status Date / Time codeine Allergy Severe Hallucinati Verified 02/13/21 13:27 ng gabapentin Allergy Severe SEVERE Verified 02/13/21 13:27 ENTIRE BODY SWELLING, DIFFICULTY BREATHING tramadol Allergy Intermediate Flushing Verified 02/13/21 13:27 morphine AdvReac Mild UPSET Verified 02/13/21 13:27 STOMACH, PT STATES SHE WON'T TAKE 01/25/07 Consultations 02/13/21 14:41 ED Decision to Admit Stat 02/13/21 18:38 Consult Cardiology Routine Ordered Studies 02/13/21 12:30 CT angio chest PE protocol Stat Hospital Course (1) Chest pain: (2) History of ST elevation myocardial infarction (STEMI): (3) Coronary artery disease: (4) Ischemic cardiomyopathy: (5) Hypertension: (6) GERD (gastroesophageal reflux disease): (7) Rheumatoid arthritis: (8) Hypothyroidism: (9) Anemia: (10) Elevated glucose: 1-5Chest pain / CAD/ischemic cardiomyopathy myopathy / hypertension Plan: troponin neg despite many hours of chest heaviness, however does have a h/o CAD with mid LAD stent Pain resolved with nitroglycerin in ER last cath 11/2018 with 100% occluded RCA with collaterals, 30% prox LAD stenosis Stress echocardiogram shows no concern for large area of myocardium at risk but likely some areas of chronic atherosclerotic change. Cardiology recommends to continue home ASA, metoprolol, statin, Cardiology recommends to increase isosorbide to 120 mg a day Patient be discharged home with follow-up with primary care physician and cardiology in the future 6. GERD Continue Protonix 40 mg b.i.d. no overnight symptoms 7. rheumatoid arthritis, chronic low back pain Continue [id number]-[id number] medications Patient reports using walking Rollator in home 8. hypothyroid Continue levothyroxine 75 mcg 9. Anemia likely multifactorial Total Time Total Time Spent Total Time Spent (In Minutes): It required greater than 30 minutes to prepare this patient for discharge Discharge Plan Discharge Items Patient Disposition: Home - Self-Care Reason For Visit: CHEST PAIN Discharge Diagnosis: stable angina Stress test is not concerning for large risk of heart attack or heart problem however it does show the need for increased medication to reduce your symptoms Activity: Per Instructions section Activity Comment: slowly increase activity Non-emergency contact: Primary Care Provider Call non-emergency contact if: your symptoms worsen Follow-up/Referrals: Gennaro Cedeno CRNP [Primary Care Provider] - Diet: Heart Healthy Addtl Attending Provider Instructions: you did have a stress test, the [employer] [facility] Roy feels you may go home with some medication changes, will send the medicine to the pharmacy to start 02/15/21 follow up with your pcp and always return if worse Pending Studies at Discharge: No Stand-Alone Forms: My [facility], Smoking Cessation Medications and DC Order Prescriptions: Continued lisinopril 2.5 mg tablet 2.5 mg PO QAM Qty: 90 RF: 3 metoprolol tartrate 50 mg tablet 50 mg PO BID Qty: 180 RF: 3 atorvastatin 80 mg tablet 80 mg PO QPM Qty: 90 RF: 1 pantoprazole 40 mg tablet,delayed release (DR/EC) 40 mg PO QAM Qty: 90 RF: 1 clobetasol 0.05 % ointment 1 applic TOP BID PRN (Reason: Rash) RF: 0 ICaps AREDS [id number] capsule 1 cap PO BID RF: 0 Refresh Optive 1-0.9 % drops,gel 1 drp ophthalmic (eye) BID RF: 0 acetaminophen 500 mg tablet 1,000 mg PO TID PRN (Reason: arthritis ) RF: 0 aspirin 81 mg Tablet,Chewable 81 mg PO QAM RF: 0 docusate sodium 100 mg Tablet 100 mg PO DAILY PRN (Reason: STOOL SOFTNER) RF: 0 nitroglycerin 0.4 mg tablet, sublingual 0.4 mg Sublingual Q5M PRN (Reason: chest pain) RF: 0 multivitamin Tablet 1 tab PO QAM RF: 0 furosemide 40 mg tablet 40 mg PO QAM RF: 0 levothyroxine 75 mcg tablet 75 mcg PO QAM RF: 0 folic acid 1 mg tablet 2 mg PO QAM RF: 0 cholecalciferol (vitamin D3) [Vitamin D3] 1,000 unit tablet 2,000 unit PO QAM RF: 0 Changed isosorbide mononitrate 60 mg tablet extended release 24 hr 120 mg PO QAM Qty: 180 RF: 3 Discontinued sulfamethoxazole-trimethoprim [Bactrim DS] 800-160 mg tablet 1 tab PO BID 3 Days Qty: 6 RF: 0 Discharge Orders: Discharge Order (Routine); Ordered 02/14/21 Ordered By: Rogelio Lloyd Admission Data Admit Date/Time: 02/13/21 16:43 Attending Provider: Rogelio Lloyd Admit Provider: Ellie Sampson Primary Care Provider: Gennaro Cedeno Other Providers: Ellie Sampson ; Roy,Arron R. Coding Level of Care Code D/C DAY MANAGEMENT >30 MINS Diagnoses Chest pain R07.9 Chest pain type: unspecified History of ST elevation myocardial infarction (STEMI) I25.2 Coronary artery disease I25.118 Coronary Disease-Associated Artery/Lesion type: [place] artery [place] vs. transplanted heart: [place] heart Associated angina: with stable angina Ischemic cardiomyopathy I25.5 Hypertension I10 GERD (gastroesophageal reflux disease) K21.9 Rheumatoid arthritis M06.9 Hypothyroidism E03.9 Hypothyroidism type: acquired Anemia D64.9 Elevated glucose R73.09
--- NOTE | 2021-02-14 17:40 | XCELERA ---
[id number]
--- NOTE | 2021-02-14 22:03 | Electrocardiogram Report ---
Test Reason : Blood Pressure : / mmHG Vent. Rate : 057 BPM Atrial Rate : 057 BPM P-R Int : 224 ms QRS Dur : 104 ms QT Int : 456 ms P-R-T Axes : 076 -06 008 degrees QTc Int : 443 ms Sinus bradycardia with 1st degree A-V block Minimal voltage criteria for LVH, may be normal variant Inferior infarct (cited on or before 13-JUL-2020) Cannot rule out Anterior infarct (cited on or before 13-JUL-2020) Abnormal ECG When compared with ECG of 13-JUL-2020 18:26, Questionable change in initial forces of Inferior leads Confirmed by Adam Torres ([id number]) on 02/14/2021 10:02:31 PM Referred By: Confirmed By:Adam Torres
--- NOTE | 2021-02-14 22:39 | Electrocardiogram Report ---
Test Reason : Blood Pressure : / mmHG Vent. Rate : 061 BPM Atrial Rate : 061 BPM P-R Int : 234 ms QRS Dur : 112 ms QT Int : 460 ms P-R-T Axes : 064 008 024 degrees QTc Int : 463 ms Sinus rhythm with 1st degree A-V block Cannot rule out Anterior infarct (cited on or before 13-JUL-2020) Abnormal ECG When compared with ECG of 13-FEB-2021 11:49, (unconfirmed) No significant change was found Confirmed by Adam Torres ([id number]) on 02/14/2021 10:39:18 PM Referred By: REFERRED SELF Confirmed By:Adam Torres
== END 2021-02-14 17:44 | disposition home or self-care (01) ==
LOC: 2S 11:27 → ED 11:27 → SUATTDRO 16:43 → 2S 17:50
DX: I25.2 Old myocardial infarction; K21.9 Gastro-esophageal reflux disease without esophagitis; R11.0 Nausea; M06.9 Rheumatoid arthritis, unspecified; L40.50 Arthropathic psoriasis, unspecified; Z79.82 Long term (current) use of aspirin; Z79.899 Other long term (current) drug therapy; I25.5 Ischemic cardiomyopathy; I25.10 Atherosclerotic heart disease of native coronary artery without angina pectoris; Z79.890 Hormone replacement therapy; E03.9 Hypothyroidism, unspecified; Z88.5 Allergy status to narcotic agent; R07.9 Chest pain, unspecified; R19.7 Diarrhea, unspecified; Z88.8 Allergy status to other drugs, medicaments and biological substances; Z95.5 Presence of coronary angioplasty implant and graft; E78.5 Hyperlipidemia, unspecified; I10 Essential (primary) hypertension

== ENCOUNTER 2021-05-21 05:26 | Inpatient (IN) ==
--- NOTE | 2021-05-15 15:38 | PAT Medication Instructions ---
Medication Instructions Date of Service May 15, 2021 Home Medications Medication Instructions Recorded metoprolol tartrate 50 mg tablet 50 mg PO BID #180 tab 05/23/20 atorvastatin 80 mg tablet 80 mg PO QPM #90 tab 12/30/20 pantoprazole 40 mg tablet,delayed 40 mg PO QAM #90 tab 01/30/21 release isosorbide mononitrate 60 mg 120 mg PO QAM #180 tab 02/14/21 tablet,extended release 24 hr rivaroxaban 2.5 mg tablet (Xarelto) 2.5 mg PO BID #60 tab 04/22/21 levothyroxine 75 mcg tablet 75 mcg PO QAM #90 tab 04/28/21 aspirin 81 mg chewable tablet 81 mg PO QAM docusate sodium 100 mg tablet 100 mg PO QAM nitroglycerin 0.4 mg sublingual tablet 0.4 mg SUBLINGUAL Q5M PRN metoprolol tartrate 50 mg tablet 50 mg PO BID atorvastatin 80 mg tablet 80 mg PO QPM pantoprazole 40 mg tablet,delayed release 40 mg PO QAM acetaminophen 500 mg tablet 1,000 mg PO TID PRN carboxymethylcellulose 1 %-glycerin 0.9 % eye gel drops (Refresh Optive) 1 drp OPHTHALMIC (EYE) BID vitamins A,C,N-cjli-onnifz 14,320 unit-226 mg-200 unit capsule (ICaps AREDS) 1 cap PO BID cholecalciferol (vitamin D3) 25 mcg (1,000 unit) tablet (Vitamin D3) 2,000 unit PO QAM folic acid 1 mg tablet 2 mg PO QAM furosemide 40 mg tablet 40 mg PO QAM multivitamin 1 tab PO QAM isosorbide mononitrate 60 mg tablet,extended release 24 hr 120 mg PO QAM rivaroxaban 2.5 mg tablet (Xarelto) 2.5 mg PO BID levothyroxine 75 mcg tablet 75 mcg PO QAM clobetasol 0.05 % topical ointment 1 applic TOP BID PRN Continue as directed nitroglycerin 0.4 mg sublingual tablet 0.4 mg SUBLINGUAL Q5M PRN (if needed) ASK your prescriber and surgeon aspirin 81 mg chewable tablet 81 mg PO QAM rivaroxaban 2.5 mg tablet (Xarelto) 2.5 mg PO BID STOP taking 2 weeks before surgery vitamins A,C,K-ufkj-ksxfkm 14,320 unit-226 mg-200 unit capsule (ICaps AREDS) 1 cap PO BID STOP taking 24 hours before surgery clobetasol 0.05 % topical ointment 1 applic TOP BID PRN DO NOT take the morning of surgery docusate sodium 100 mg tablet 100 mg PO QAM cholecalciferol (vitamin D3) 25 mcg (1,000 unit) tablet (Vitamin D3) 2,000 unit PO QAM folic acid 1 mg tablet 2 mg PO QAM furosemide 40 mg tablet 40 mg PO QAM multivitamin 1 tab PO QAM Take morning of surgery With a small sip of water, OTHERWISE NOTHING TO EAT OR DRINK AFTER MIDNIGHT: metoprolol tartrate 50 mg tablet 50 mg PO BID pantoprazole 40 mg tablet,delayed release 40 mg PO QAM acetaminophen 500 mg tablet 1,000 mg PO TID PRN (okay to take up to 4 hours prior to surgery if needed) carboxymethylcellulose 1 %-glycerin 0.9 % eye gel drops (Refresh Optive) 1 drp OPHTHALMIC (EYE) BID isosorbide mononitrate 60 mg tablet,extended release 24 hr 120 mg PO QAM levothyroxine 75 mcg tablet 75 mcg PO QAM Take evening before surgery metoprolol tartrate 50 mg tablet 50 mg PO BID atorvastatin 80 mg tablet 80 mg PO QPM acetaminophen 500 mg tablet 1,000 mg PO TID PRN (if needed) carboxymethylcellulose 1 %-glycerin 0.9 % eye gel drops (Refresh Optive) 1 drp OPHTHALMIC (EYE) BID Other Notes If you have any questions please call us at [phone] or [phone] or [phone] or [phone]
--- NOTE | 2021-05-19 08:54 | Anesthesiology Consultation ---
Date of Service May 19, 2021 Assessment & Plan (1) Encounter for pre-operative examination: - COVID screening: Per assessment on 05/19: Travel screen negative, no known COVID-19 positive contacts or current COVID-19 related symptoms. Preop COVID briana t being done 05/[address] [facility]. Awaiting results. - Cardiology office visit (02/27/21): "post prior PCI with drug-eluting stent to LAD, known occluded right coronary artery.. Ischemic cardiomyopathy, EF 35-40%--recovered LV function on most recent echo 01/2021.. Hypertension-- stable on current regimen.. Carotid artery disease status post right carotid endarterectomy-- approximately 70% stenosis in distal right CCA and 70% stenosis in left ICA bulb.. Stable post recent hospitalization for chest pain. Recent stress test low risk. Home activity limited but no recurrent anginal symptoms. Musculoskeletal left flank pain improved with topical NSAIDs, lidocaine patch. On exam today no signs of heart failure." Carotid duplex testing ordered and re commendation to f/u in 3 months. - Cardiology addendum (04/22/21): "Carotid ultrasound > 80% stenosis on RT, > 70% stenosis on LT. Discussed findings with patient. Will obtain CTA. Start Xarelto 2.5 mg BID. Continue ASA 81mg daily. Vascular surgery (Molly, family member recently with good care) or interventional neurology." - ASA/Xarelto instructions per surgeon/prescriber Chart Review Chart Review: Acceptable Risk for Surgery and Patient seen in Pre Admission Testing Teaching & Discussion Pre-Anesthesia Teaching/Discussion Notes: Instructed NPO after midnight before surgery,except medications with 15 cc of water. Medication instructions provided according to the PAT guidelines. History Surgery Operation Date: 05/21/21 07:30 Proposed Procedures p Redo Right Carotid Endarterectomy - Lexx Barnes MD Height/Weight Height: 5 ft 7 in Weight: 93.4 kg Allergies Allergy/AdvReac Type Severity Reaction Status Date / Time gabapentin Allergy Unknown Severe Verified 05/16/21 10:32 diffuse swelling, dyspnea tramadol Allergy Unknown Flushing Verified 05/08/21 11:03 codeine AdvReac Unknown Hallucinati Verified 05/16/21 10:32 ons morphine AdvReac Unknown Dyspepsia Verified 05/16/21 10:32 (pt states "she won't take" 01/25/07) Medications Home Medications Medication Instructions Recorded Confirmed Last Taken aspirin 81 mg chewable tablet 81 mg PO QAM 11/05/17 05/08/21 02/13/21 docusate sodium 100 mg tablet 100 mg PO QAM 11/05/17 05/08/21 02/13/21 nitroglycerin 0.4 mg sublingual 0.4 mg SUBLINGUAL Q5M PRN tab 11/22/18 05/08/21 Unknown tablet metoprolol tartrate 50 mg tablet 50 mg PO BID #180 tab 05/23/20 05/08/21 02/13/21 atorvastatin 80 mg tablet 80 mg PO QPM #90 tab 12/30/20 05/08/21 02/12/21 pantoprazole 40 mg tablet,delayed 40 mg PO QAM #90 tab 01/30/21 05/08/21 02/13/21 release acetaminophen 500 mg tablet 1,000 mg PO TID PRN tab 02/11/21 05/08/21 02/13/21 carboxymethylcellulose 1 1 drp OPHTHALMIC (EYE) BID 02/11/21 05/08/21 02/13/21 %-glycerin 0.9 % eye gel drops (Refresh Optive) vitamins A,C,X-qnsf-mwstng 14,320 1 cap PO BID 02/11/21 05/08/21 02/13/21 unit-226 mg-200 unit capsule (ICaps AREDS) cholecalciferol (vitamin D3) 25 2,000 unit PO QAM 02/13/21 05/08/21 02/13/21 mcg (1,000 unit) tablet (Vitamin D3) folic acid 1 mg tablet 2 mg PO QAM 02/13/21 05/08/21 02/13/21 furosemide 40 mg tablet 40 mg PO QAM 02/13/21 05/08/21 02/13/21 multivitamin 1 tab PO QAM 02/13/21 05/08/21 02/13/21 isosorbide mononitrate 60 mg 120 mg PO QAM #180 tab 02/14/21 05/08/21 Unknown tablet,extended release 24 hr rivaroxaban 2.5 mg tablet (Xarelto) 2.5 mg PO BID #60 tab 04/22/21 05/08/21 Unknown levothyroxine 75 mcg tablet 75 mcg PO QAM #90 tab 04/28/21 05/08/21 Unknown clobetasol 0.05 % topical ointment 1 applic TOP BID PRN 05/08/21 05/08/21 Unknown Past Medical History Medical History Asymptomatic gallstones Carotid stenosis, bilateral s/p right carotid endarterectomy (2008) Coronary artery disease 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 Roy/[facility] (gastroesophageal reflux disease) History of basal cell carcinoma (BCC) of skin s/p excision History of DE (myocardial infarction) STEMI (2006), 2 other "mild" DE's HTN (hypertension) Controlled with meds Hyperlipidemia Hypothyroidism Osteoarthritis Rheumatoid arthritis Previously on MTX (discontinued) Toes, fingers, hips, knees, shoulders affected. Denies neck issues. Full extension ROM without pain on exam at PAT 05/19/21. Right ovarian cyst Under surveillance Spinal stenosis Vertigo Hx Exercise / Class Metabolic Activity III < 4 Walking/Shop/Light housework (walker PRN) Past Family History Family History Mother Diabetes Myocardial infarction Breast cancer Daughter Hypertension Diabetes Other COPD (chronic obstructive pulmonary disease) Heart disease Stroke Denies family history of Ovarian cancer Prostate cancer Colorectal cancer Past Surgical History Surgical History History of anesthesia reaction "Slow to wake" History of carpal tunnel release of both wrists History of colonoscopy History of decompression of ulnar nerve Right History of right-sided carotid endarterectomy 2008 History of total right knee replacement Hx of cataract surgery R/L S/P tonsillectomy S/P tubal ligation Status post insertion of drug-eluting stent into left anterior descending (LAD) artery 2006 ([facility]) Status post left knee replacement Past Anesthesia History No Family Hx of Anesthesia Complications and Other ("Slow to wake" with multiple surgeries) History of PONV No Hx of PONV and No Hx of Motion Sickness Social History Smoking Status: Never smoker Do You Dip or Chew Tobacco: No Hx Alcohol Use: No Hx Substance Use: No substance use type: does not use Review of Systems Patient denies chest pain, shortness of breath, fever, chills, cough, wheezing, palpitations. Physical Exam Vital Signs VITALS BP 106/63 P 65 TEMP 97.8 SP02 97%RA RESP 16 PHYSICAL Full cervical extension range of motion. Full TMJ range of motion. TMD 3 finger breaths Mallampati Score 3 Dentition: upper/lower full dentures Lungs: clear throughout to auscultation Cardiac: regular rate and rhythm, no murmurs noted Spine: normal Carotid arteries: + bruit b/l Extremities: 2+ pitting edema Lab Results Anesthesia Preop Results Results Anesthesia Widget: 2 WBC 5.33 K/uL (4.8-10.8) 05/19/21 Hgb 11.8 g/dL (12.0-16.0) L 05/19/21 Hct 35.2 % (37-47) L 05/19/21 Plt 221 K/uL (130-400) 05/19/21 Na 140 mmol/L (136-145) 05/19/21 K 3.8 mmol/L (3.5-5.1) 05/19/21 Cl 103 mmol/L (98-107) 05/19/21 CO2 30 mmol/L (21-32) 05/19/21 BUN 14 mg/dl (6-23) 05/19/21 Creat 0.92 mg/dl (0.6-1.2) 05/19/21 Glucose Level 105 mg/dl (70-99(Fasting)) H 05/19/21 PT 11.1 Seconds (9.0-12.0) 05/19/21 PTT 27.5 Seconds (21.0-31.0) 05/19/21 INR 1.0 (0.9-1.1) 05/19/21 Blood Type O Positive 05/19/21 Antibody Screen NEGATIVE 05/19/21 Testing Electrocardiogram Date: 02/14/21 Sinus rhythm with first-degree AV block at 61 bpm. Cannot rule out anterior infarct (cited on or before 07/13/2020). No significant change compared to 02/13/2021 per group counselor review. Echo done 02/14/21* Chest X-Ray Date: 02/13/21 Findings: + NAD Echocardiogram Date: 02/14/21 EF 50-55%. No regional wall motion abnormality. Mild concentric LVH. Mild AV sclerosis. Mild AR. Mild to moderate MR. RVSP normal. Stress Test Date: 02/14/21 Type: DSE Positive stress echo for basal and mid inferior ischemia. Remaining segments augmented appropriately. Negative dobutamine stress ECG for ischemia 94% MPHR. Findings consistent with known RCA chronic total occlusion. "Low risk" stress test per cardiology office visit note 02/27/21* Cardiac Catheterization Date: 12/23/18 Severe chronic single-vessel coronary artery disease- 100% proximal RCA chronic total occlusion. Fills partially via right to right and left to right collaterals. Widely patent mid LAD stent Normal left and right-sided intracardiac filling pressures. Normal pulmonary artery pressures. Other Testing Carotid doppler (04/22/21): Greater than 80% restenosis of the right bulb/proximal ICA post endarterectomy. Less than 50% stenosis in the left ICA. Greater than 70% stenosis left distal CCA/bulb. Antegrade flow in both vertebral arteries. Compared to prior exam done 12/13/2018, significant progression of stenosis in right and left distal CCA/bulb. Neck CTA (04/30/21): Progression of severe stenosis of the distal right common carotid artery with approximate 90% stenosis since CTA of November 25, 2017. Extensive ulcerated plaque. Possible prior right carotid endarterectomy. Extensive calcified atherosclerotic plaque of the distal left common carotid artery with approximate 70% stenosis which has mildly progressed. Severe stenosis at the origin of the left external carotid artery.
[2021-05-21] MEDS ORDERED: LR 15ML/HR IV SCH (06:00)
[2021-05-21] MEDS ORDERED: ceFAZolin 2000MG 2,000 MG/15 ML SYR IV SCH (06:00)
[2021-05-21] MEDS ORDERED: LACTATED RINGER'S 1,000 ML IV SCH ×2 (06:00→13:45)
[2021-05-21] MEDS ORDERED: DEXAMETHASONE SOD INJ 4 MG/ML VIAL ONE (06:26)
[2021-05-21] MEDS ORDERED: fentaNYL citrate 100 MCG/2 ML VIAL ONE (06:26)
[2021-05-21] MEDS ORDERED: ONDANSETRON INJ 2 MG/ML 2 ML VIAL ONE (06:26)
[2021-05-21] MEDS ORDERED: PROPOFOL IV EMULSION 10 MG/ML 20 ML VIAL IV ONE (06:26)
[2021-05-21] MEDS ORDERED: PHENYLEPHRINE HCL 10 MG/ML VIAL ONE (06:28)
[2021-05-21] MEDS ORDERED: HEPARIN SOD (PORCINE) 1000 UNIT/ML ONE ×2 (06:28→09:35)
[2021-05-21] MEDS ORDERED: ROCURONIUM BROMIDE 10 MG/ML 5 ML VIAL IV ONE ×3 (06:28→11:06)
[2021-05-21] MEDS ORDERED: NITROGLYCERIN/D5W 100 MCG/ML BTL ONE (06:32)
[2021-05-21] MEDS ORDERED: GELATIN SPONGE SZ 100 ONE (07:10)
[2021-05-21] MEDS ORDERED: ceFAZolin 330 MG/ML 1 GM VIAL ONE (07:10)
[2021-05-21] MEDS ORDERED: THROMBIN FOR SOLN 20000 UNIT KIT ONE (07:10)
[2021-05-21] MEDS ORDERED: HEPARIN (PORCINE) 1000 UNIT/ML 10 ML (CATH LAB USE ONLY) ONE (07:10)
[2021-05-21] MEDS ORDERED: LIDOCAINE 1% LOCAL 20 ML VIAL ONE (07:10)
[2021-05-21] MEDS ORDERED: BUPIVACAINE 0.5 % 5 MG/1 ML MPF 30ML VIAL ONE (07:11)
[2021-05-21] MEDS ORDERED: EPINEPHrine INJ 1 MG/ML AMP ONE (07:11)
--- NOTE | 2021-05-21 07:23 | History & Physical Report ---
Date of Service May 21, 2021 History of Present Illness Primary Care Provider: ANA Gibson May 05, 2021 Name: EDDA JOE [facility] [place] [facility] Number: [id number] : 1940 Date of Service: 05/05/2021 Tim Roy MD [address] [place] [address] Roy: We had the pleasure of seeing Ms. Edda Joe in the Vascular Surgery office as a new patient consultation for carotid artery stenosis. As you know, this is a very pleasant 81-year-old female who underwent previous carotid endarterectomy on the right in [address] Deniz Prince for asymptomatic right carotid artery stenosis. She has been following with Dr. Roy since this time. She indicates that she has had annual carotid ultrasounds. As of late, her recent ultrasound suggested a greater than 80% stenosis on the right. Then following that, she underwent a CT scan which confirmed that she had severe stenosis of the bilateral carotid arteries thus prompting her referral over to our office. Ms. Joe does describe an episode of chest pain in January for which she was seen at [facility]. She describes this as a feeling as though there was a fist in her chest. However, associated with this episode, there was left arm pain and numbness and interestingly her left leg felt numb and tingly as well at this time. The symptoms lasted a few hours. It sounds like she had quite an extensive cardiac workup including an echocardiogram and nuclear stress test. She had no cardiac intervention performed at that time. She does have a history of several prior heart attacks and indicates that she had a "bad heart attack" in 2006 and has had 3 since that time. She has never had open-heart surgery. She indicates that she has had coronary artery stenting. She does indicate that she has burning in her chest when she is exerting herself, which includes walking 1 city block. She gets dyspnea on exertion with walking the length of 1 city block which limits her activity. She denies any history of stroke or TIA. She does indicate that over the last couple of years, she has episodes of "mask" coming over 1 eye or the other. These episodes last a few minutes. She indicates that they occur mostly on the left, however, at times also occur on the right. She feels that they occur more often at night. She does not associate them with changes in position. In addition, she has episodes of blurred vision. For her vision changes, she had been seen by an front office manager who indicated that she has early macular degeneration. She denies any numbness, tingling, or weakness at this time. Other than the episode in January, she denies any other extremity numbness, tingling, or weakness. Her medical history is notable for coronary artery disease as previously de scribed. She denies history of heart failure. She does have early macular degeneration. She has a right ovarian cyst. She has carotid artery stenosis, gastroesophageal reflux disease, rheumatoid arthritis, psoriatic arthritis, and osteoarthritis. Her surgical history is notable for coronary artery stents, bilateral carpal tunnel release, ulnar nerve transposition on the right, bilateral knee replacements, basal cell carcinoma excision from her nose, tonsillectomy (1950), bilateral cataract surgery, and laser eye surgery. She also had her right carotid endarterectomy in 2008. Her social history is notable for she has never smoked. She does not drink and she does not use any recreational drugs. 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 She is and lives at home with her whom she reports had a large stroke in December, and as such, can no longer drive and she does help him with some of his activities of daily life. Her family history is positive for heart disease, hypertension, diabetes, cancer, circulation problems, and stroke. Her home medications include aspirin 81 mg daily and Xarelto 2.5 mg b.i.d. She does take atorvastatin 80 mg daily. PHYSICAL EXAMINATION: Notable for oxygen saturation 98% on room air, heart rate of 68, blood pressure is 110/72. She is well appearing, well nourished, in no acute distress. She is awake, alert, responds to questions appropriately. She does appear mildly short of breath after speaking 2 or 3 sentences. On auscultation of her lungs, her lung freire are clear to auscultation bilaterally. On cardiac auscultation, she has a regular rate and rhythm with no murmurs, rubs, or gallops appreciated. Abdomen is soft, nontender, nondistended. Radial pulses are palpable bilaterally. On examination of her right neck, she has a well-healed longitudinal scar along the border of the sternocleidomastoid, which is well healed. She has bilateral carotid bruits which are readily audible. Cranial nerves 2 through 12 are intact. Motor and sensory examinations are grossly intact throughout all 4 extremities. In review of her CT that was performed at [facility], this is notable for significant high-grade stenosis of the right carotid artery, what appears just proximal to the prior right carotid endarterectomy patch. There is also greater than 80% stenosis of the left carotid artery. In summary, this is a very pleasant 81-year-old female with a history of prior right carotid endarterectomy, now with re-stenosis just proximal to her right carotid patch. I do think that she is describing symptoms that are concerning for symptomatic carotid disease given her left upper extremity and left lower extremity numbness, tingling, and weakness back in January. Thus I believe that she would benefit from a right carotid endarterectomy extending the patch more proximally on the right side. We discussed the procedure including its associated risks and alternatives. The patient wishes to proceed with the procedure. We will get her scheduled for surgery. In regard to the left side, I am concerned about her symptoms of vision loss. However, I am not certain if this represents amaurosis fugax. However, her description is certainly concerning for such in the presence of greater than 80%stenosis on CT. We will see how she does with the right side and then discuss pursuing the repair of the left side at that time. Thank you for allowing me to participate in the care of this patient. Please do not hesitate to contact me with questions or concerns. Sincerely, I saw and evaluated the patient. Discussed with the resident and agree with the resident's findings and plan as documented in the resident's note. 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 [address], [address] [place] [address] ST /CO Result Type: .Outpt Ltr Date of Service: May 05, 2021 00:00 EST Authorization Status: Final Author or Import Date: MD Claudia, Toya on May 05, 2021 15:31 EST Verified By: MD Molly, Lexx Quezada on May 07, 2021 08:12 EST Encounter info: [id number], [facility], Clinic, 05/05/2021 - 05/05/2021 Contributor system: [id number] Allergies Allergy/AdvReac Type Severity Reaction Status Date / Time gabapentin Allergy Unknown Severe Verified 05/21/21 05:55 diffuse swelling, dyspnea tramadol Allergy Unknown Flushing Verified 05/21/21 05:55 codeine AdvReac Unknown Hallucinati Verified 05/21/21 05:55 ons morphine AdvReac Unknown Dyspepsia Verified 05/21/21 05:55 (pt states "she won't take" 01/25/07) Home Medications Medication Instructions Recorded Confirmed Type aspirin 81 mg chewable tablet 81 mg PO QAM 11/05/17 05/21/21 History docusate sodium 100 mg tablet 100 mg PO QAM 11/05/17 05/21/21 History nitroglycerin 0.4 mg sublingual 0.4 mg SUBLINGUAL Q5M PRN tab 11/22/18 05/21/21 History tablet metoprolol tartrate 50 mg tablet 50 mg PO BID #180 tab 05/23/20 05/21/21 Rx atorvastatin 80 mg tablet 80 mg PO QPM #90 tab 12/30/20 05/21/21 Rx pantoprazole 40 mg tablet,delayed 40 mg PO QAM #90 tab 01/30/21 05/21/21 Rx release acetaminophen 500 mg tablet 1,000 mg PO TID PRN tab 02/11/21 05/21/21 History carboxymethylcellulose 1 1 drp OPHTHALMIC (EYE) BID 02/11/21 05/21/21 History %-glycerin 0.9 % eye gel drops (Refresh Optive) vitamins A,C,L-lcjk-wthajf 14,320 1 cap PO BID 02/11/21 05/21/21 History unit-226 mg-200 unit capsule (ICaps AREDS) cholecalciferol (vitamin D3) 25 2,000 unit PO QAM 02/13/21 05/21/21 History mcg (1,000 unit) tablet (Vitamin D3) folic acid 1 mg tablet 2 mg PO QAM 02/13/21 05/21/21 History furosemide 40 mg tablet 40 mg PO QAM 02/13/21 05/21/21 History multivitamin 1 tab PO QAM 02/13/21 05/21/21 History isosorbide mononitrate 60 mg 120 mg PO QAM #180 tab 02/14/21 05/21/21 Rx tablet,extended release 24 hr rivaroxaban 2.5 mg tablet (Xarelto) 2.5 mg PO BID #60 tab 04/22/21 05/21/21 Rx levothyroxine 75 mcg tablet 75 mcg PO QAM #90 tab 04/28/21 05/21/21 Rx clobetasol 0.05 % topical ointment 1 applic TOP BID PRN 05/08/21 05/21/21 History Past Med/Surg History Medical History Asymptomatic gallstones Carotid stenosis, bilateral s/p right carotid endarterectomy (2008) Coronary artery disease 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 Roy[place] [place] (gastroesophageal reflux disease) History of basal cell carcinoma (BCC) of skin s/p excision History of PA (myocardial infarction) STEMI (2006), 2 other "mild" PA's HTN (hypertension) Controlled with meds Hyperlipidemia Hypothyroidism Osteoarthritis Rheumatoid arthritis Previously on MTX (discontinued) Toes, fingers, hips, knees, shoulders affected. Denies neck issues. Full extension ROM without pain on exam at [facility] 05/19/21. Right ovarian cyst Under surveillance Spinal stenosis Vertigo Hx Surgical History History of anesthesia reaction "Slow to wake" History of carpal tunnel release of both wrists History of colonoscopy History of decompression of ulnar nerve Right History of right-sided carotid endarterectomy 2008 History of total right knee replacement Hx of cataract surgery R/L S/P tonsillectomy S/P tubal ligation Status post insertion of drug-eluting stent into left anterior descending (LAD) artery 2006 ([facility]) Status post left knee replacement Family History Mother Diabetes Myocardial infarction Breast cancer Daughter Hypertension Diabetes Other COPD (chronic obstructive pulmonary disease) Heart disease Stroke Denies family history of Ovarian cancer Prostate cancer Colorectal cancer Social History Smoking Status: Never smoker Second Hand Exposure: No; Do You Dip or Chew Tobacco: No; Hx Alcohol Use: No Hx Substance Use: No Preferred Language: Burundian Communication Ability: Effective Visual Impairment: Limited Hearing Ability: Normal Contract Preparer Required: No Beliefs That Will Affect Care: None marital status: Current Living Situation: Spouse Current Living Situation Comment: Lives with in [facility] apartment current occupational status: retired How many Children do You have: 2 Other Information That Helps Us Care for You: Yes (REQUEST HOME HEALTH AFTER [facility] RG[facility]/ DOESN'T DRIVE) Feels Safe at Home: Yes Childhood Exposure to Second-Hand Smoke: Yes caffeine: Yes (Coffee 2 cups per day.) during the past year weight has: remained stable Dental Care, Regularly: No Physical Activity Frequency: Does not Exercise Seatbelt Use: always Sunscreen Use: Yes Assistive Devices: Walker Results & Data ([facility]) Vital Signs (Past 12 Hours) Vital Signs Temp Pulse Resp BP Pulse Ox 05/21/21 06:22 36.6 C 74 20 136/68 95
[2021-05-21] MEDS ORDERED: BACITRACIN OINT 15 GM TUBE ONE (08:13)
[2021-05-21] MEDS ORDERED: SUGAMMADEX SODIUM 200 MG/2 ML VIAL IV ONE (08:56)
[2021-05-21] MEDS ORDERED: ATROPINE SULFATE 0.1 MG/ML 10ML SYR IV PRN (09:39)
[2021-05-21] MEDS ORDERED: ONDANSETRON INJ 2 MG/ML 2 ML VIAL IV PRN (09:39)
[2021-05-21] MEDS ORDERED: ePHEDrine sulfate 50 MG/ML AMP IV PRN (09:39)
--- NOTE | 2021-05-21 11:27 | Post Operative Brief Note ---
Immediate Post Op Note v1 Date of Surgery May 21, 2021 Pre & Post Diagnosis Operation Date: 05/21/21 07:30 Pre-Op Diagnosis: Restenosis Right Common Carotid Artery Post-Op Diagnosis: Restenosis Right Common Carotid Artery I identified the patient and participated in the time-out.: Yes Procedure Operation Date: 05/21/21 07:30 Actual Procedures p Redo Right Carotid Endarterectomy(Right) - Lexx Barnes MD Surgeon Lexx Barnes MD Health Informatics Specialist MD Lor L.Minarchick,PAC Estimated Blood Loss 200 Findings Consistent with Post-Op Diagnosis Anesthesia Type General Complications none Disposition Accompanied Patient To Recovery: No Disposition: Recovery Room
--- NOTE | 2021-05-21 11:34 | Operative Report ---
Post Operative Report Pre & Post Diagnosis Operation Date: 05/21/21 07:30 Pre-Op Diagnosis: Restenosis Right Common Carotid Artery Post-Op Diagnosis: Restenosis Right Common Carotid Artery I identified the patient and participated in the time-out.: Yes Procedure Operation Date: 05/21/21 07:30 Actual Procedures p Redo Right Carotid Endarterectomy(Right) - Lexx Barnes MD Surgeon Lexx Barnes MD Gang Ripsaw Operator Toya Restrepo MD ; Nancy Suggs PA-C Estimated Blood Loss 200 Findings Consistent with Post-Op Diagnosis Specimens right carotid plaque Complications none Disposition Accompanied Patient To Recovery: No Indications This is an 81 year old female with history of right carotid endarterectomy several years ago. She has developed stenosis just proximal to her previous carotid patch in the common carotid artery. She has had a transient ischemic attack a few weeks ago with symptoms consistent with right middle cerebral artery involvement. She presents for re-do right carotid endarterectomy. Description of Procedure The patient was taken to the operating room and placed in supine position. After general anesthesia was accomplished the right side of the neck was prepped and draped in a sterile manner. A team timeout was performed. A longitudinal neck incision was then made coursing along the medial border of the sternocleidomastoid muscle over the previous scar and extended proximally. The incision was taken down through the platysmal layer. No facial vein was identified; this was likely ligated during her first carotid endarterectomy. The common carotid artery was then seen. It was dissected free down to the omohyoid muscle. The dissection was carried upward along the common carotid artery. Moderate amount of scar tissue was encountered around the segment that had previously been patched. We dissected up to just before the carotid bifurcation. The patient was heparinized. After adequate heparinization was accomplished, the common carotid artery was clamped at its distal-most aspect and proximally near the omohyoid muscle. A longitudinal arteriotomy was started on the common carotid artery and extended upward for the length of the exposed artery, to a point beyond the area of narrowing. There was calcified plaque of the common carotid artery involving the proximal aspect of the patch and the [place] common carotid artery just proximal to the previous patch. Organized thrombus was encountered in this area. The plaque was very friable. A Doppler shunt was then placed in the internal, followed by the common carotid artery and held in place with Ranulfo clamps. There was good back bleeding seen from the internal carotid artery. The endarterectomy was then started in the appropriate plane on the common carotid artery. This was carried upward as far as we could for the exposed artery and then the plaque was transected. We attempted to place several tacking sutures to fix this plaque down however there still appeared to be mobile plaque that was friable so ultimately we transected the common carotid artery slightly proximal to our distal clamp. We removed about a 2mm length of the artery distal to the point of the transection and about 2mm proximal to the point of transection. This removed most of the friable calcified plaque. We freed up the artery proximally and distally and given that she had some redundancy in her proximal carotid artery these were able to be brought together with no tension and a primary anastomosis was performed between the two segments, connecting them at their lateral and posterior sides. When we made our transection we did go through the previous patch so the now cut ends of the sutures of the prior patch were identified and these were tied down again using 6-0 prolene tied to the previous suture. Under loop magnification, all loose debris and flaps were removed. When we had removed the plaque it left a nice fixed shelf proximally. The arteriotomy then closed using a bovine pericardial patch and a running 5-0 prolene suture. This was done in the usual vascular fashion. Prior to completing the closure, the external sundt shunt was removed and the internal and common carotid arteries were reclamped. Backbleeding and forward bleeding was allowed to occur. The flow surface was irrigated with heparinized saline. The final few sutures were then placed and securely tied. Clamps were then removed off the common carotid artery proximally and distally. A good pulse was present in the common carotid, internal carotid, and external carotid arteries. Adequate hemostasis was seen of the patch. The wound was inspected and adequate hemostasis was obtained. The wound was irrigated with antibiotic solution. It was then closed with a running 3-0 Vicryl suture for the platysmal layer and a 4-0 subcuticular Vicryl suture for the skin edges. Dermabond was used for dressing. The patient left the operating room in satisfactory condition and tolerated the procedure well. At the conclusion of the case all instrument, sponge, and needle counts were correct. Dr. Barnes was present and scrubbed for the duration of the procedure. I attest to the content of the Intraoperative Record and any orders documented therein. Any exceptions are noted below.
[2021-05-21] MEDS: fentaNYL citrate 100 MCG/2 ML VIAL IV PRN ×2 (12:03→12:08)
[2021-05-21] MEDS ORDERED: oxyCODONE/ACETAMINOPHEN 5mg/325mg TAB PO PRN (13:21)
[2021-05-21] MEDS ORDERED: ACETAMINOPHEN 500 MG TAB PO PRN (13:21)
[2021-05-21] MEDS ORDERED: NITROGLYCERIN SL 0.4 MG/TAB TAB SL PRN (13:21)
--- NOTE | 2021-05-21 13:28 | Anesthesiology Progress Note ---
Date of Service May 21, 2021 Anesthesia Post Procedure Vital Signs Vital Signs: Temp Pulse Resp BP BP Pulse Ox 05/21/21 12:35 36.2 C L 74 17 152/59 H 99 05/21/21 12:25 81 17 158/61 H 99 05/21/21 12:15 69 18 151/62 H 99 05/21/21 12:05 72 18 144/56 H 99 05/21/21 11:55 74 18 179/94 H 99 05/21/21 11:48 36.2 C L 74 18 150/81 H 95 05/21/21 06:22 36.6 C 74 20 136/68 95 Transfer of Care Handoff Completed per policy Notes Mental Status: alert / awake / arousable and participated in evaluation Patient Amnestic to Procedure: Yes Nausea / Vomiting: adequately controlled Pain: adequately controlled Airway Patency, RR, SpO2: stable & adequate BP & HR: stable & adequate Hydration State: stable & adequate Anesthetic Complications: no major complications apparent and Pt Satisfied with anesthetic care
--- NOTE | 2021-05-21 13:29 | Procedure Note ---
Procedure Note Date of Service May 21, 2021 Note Radial arterial line placed in Preop in preparation for CEA redo with Dr. Barnes. Left wrist prepped with chlorhexidine and draped with sterile towels. Site infiltrated with 0.5 cc of 1% lidocaine. 20 G angiocath placed under sterile technique utilizing sterile gloves, surgical hats and masks. Catheter threaded using seldinger technique with return of pulsatile, bright red blood. Site covered with occlusive dressing and taped in place. Waveform consistent with correct arterial placement. After placement, fingers of procedural hand had normal perfusion. Patient tolerated procedure well without complications. Beverly Pardo MD, PhD Anesthesiologist Coding
[2021-05-21] MEDS ORDERED: CLOBETASOL PROPIONATE 0.05% OINT 15 GM TUBE EXT PRN (13:42)
--- NOTE | 2021-05-21 13:53 | Critical Care Consultation ---
Date of Consultation May 21, 2021 Assessment & Plan (1) Status post carotid endarterectomy: (2) Obesity: (3) Rheumatoid arthritis: --S/p carotid endarterectomy Done by Dr. Barnes 05/21/2021 Continue to monitor neurological status every 4 hours Monitor H&H --Hypertension Continue with home blood pressure medication --Dyslipidemia Continue with atorvastatin --Hypothyroidism Continue with levothyroxine --Prophylaxis VTE: IPC's. Xarelto to be started tomorrow GI: Pantoprazole Lines: Left radial Diet: Cardiac Plan: Monitor H&H Neurological checks Monitor blood pressure Please note the above document was generated using voice recognition software. It may contain grammatical, syntax or spelling errors.Any formal questions or concerns about the content, text or information contained within the body of this dictation should be directly addressed to the provider for clarification. History of Present Illness Attending Physician: Lexx Barnes MD History of Present Illness 81-year-old female with history of carotid artery atherosclerosis s/p endarterectomy [place] [address] Thompson had another procedure today for the restenosis of the right carotid artery Past medical history: Coronary artery disease, GERD, psoriatic arthritis and osteoarthritis Patient is in the ICU for monitoring after carotid endarterectomy done by Dr. Barnes At the time of examination patient blood pressure systolic was in the 140s from the left radial line She was not in any respiratory distress Denied any chest pain, no headache, no nausea, no vomiting. She did complain of feeling tired. She still had feeling of sore throat from the intubation. She was able to tolerate water/liquids without any issues No dysuria, diarrhea No blurry vision. Denies any weakness. Social history: Lifetime non-smoker Allergies Allergy/AdvReac Type Severity Reaction Status Date / Time gabapentin Allergy Unknown Severe Verified 05/21/21 05:55 diffuse swelling, dyspnea tramadol Allergy Unknown Flushing Verified 05/21/21 05:55 codeine AdvReac Unknown Hallucinati Verified 05/21/21 05:55 ons morphine AdvReac Unknown Dyspepsia Verified 05/21/21 05:55 (pt states "she won't take" 01/25/07) Home Medications Medication Instructions Recorded Confirmed Type aspirin 81 mg chewable tablet 81 mg PO QAM 11/05/17 05/21/21 History docusate sodium 100 mg tablet 100 mg PO QAM 11/05/17 05/21/21 History nitroglycerin 0.4 mg sublingual 0.4 mg SUBLINGUAL Q5M PRN tab 11/22/18 05/21/21 History tablet metoprolol tartrate 50 mg tablet 50 mg PO BID #180 tab 05/23/20 05/21/21 Rx atorvastatin 80 mg tablet 80 mg PO QPM #90 tab 12/30/20 05/21/21 Rx pantoprazole 40 mg tablet,delayed 40 mg PO QAM #90 tab 01/30/21 05/21/21 Rx release acetaminophen 500 mg tablet 1,000 mg PO TID PRN tab 02/11/21 05/21/21 History carboxymethylcellulose 1 1 drp OPHTHALMIC (EYE) BID 02/11/21 05/21/21 History %-glycerin 0.9 % eye gel drops (Refresh Optive) vitamins A,C,C-rdfp-uguphp 14,320 1 cap PO BID 02/11/21 05/21/21 History unit-226 mg-200 unit capsule (ICaps AREDS) cholecalciferol (vitamin D3) 25 2,000 unit PO QAM 02/13/21 05/21/21 History mcg (1,000 unit) tablet (Vitamin D3) folic acid 1 mg tablet 2 mg PO QAM 02/13/21 05/21/21 History furosemide 40 mg tablet 40 mg PO QAM 02/13/21 05/21/21 History multivitamin 1 tab PO QAM 02/13/21 05/21/21 History isosorbide mononitrate 60 mg 120 mg PO QAM #180 tab 02/14/21 05/21/21 Rx tablet,extended release 24 hr rivaroxaban 2.5 mg tablet (Xarelto) 2.5 mg PO BID #60 tab 04/22/21 05/21/21 Rx levothyroxine 75 mcg tablet 75 mcg PO QAM #90 tab 04/28/21 05/21/21 Rx clobetasol 0.05 % topical ointment 1 applic TOP BID PRN 05/08/21 05/21/21 History Patient History Medical History Asymptomatic gallstones Carotid stenosis, bilateral s/p right carotid endarterectomy (2008) Coronary artery disease 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 Roy/PURVI GERD (gastroesophageal reflux disease) History of basal cell carcinoma (BCC) of skin s/p excision History of TX (myocardial infarction) STEMI (2006), 2 other "mild" TX's HTN (hypertension) Controlled with meds Hyperlipidemia Hypothyroidism Osteoarthritis Rheumatoid arthritis Previously on MTX (discontinued) Toes, fingers, hips, knees, shoulders affected. Denies neck issues. Full extension ROM without pain on exam at [facility] 05/19/21. Right ovarian cyst Under surveillance Spinal stenosis Vertigo Hx Surgical History History of anesthesia reaction "Slow to wake" History of carpal tunnel release of both wrists History of colonoscopy History of decompression of ulnar nerve Right History of right-sided carotid endarterectomy 2008 History of total right knee replacement Hx of cataract surgery R/L S/P tonsillectomy S/P tubal ligation Status post insertion of drug-eluting stent into left anterior descending (LAD) artery 2006 ([facility]) Status post left knee replacement Family History Mother Diabetes Myocardial infarction Breast cancer Daughter Hypertension Diabetes Other COPD (chronic obstructive pulmonary disease) Heart disease Stroke Denies family history of Ovarian cancer Prostate cancer Colorectal cancer Social History Smoking Status: Never smoker Second Hand Exposure: No; Do You Dip or Chew Tobacco: No; Hx Alcohol Use: No Hx Substance Use: No Preferred Language: Syrian Communication Ability: Effective Visual Impairment: Limited Hearing Ability: Normal Metal Model Maker Required: No Beliefs That Will Affect Care: None marital status: Current Living Situation: Spouse Current Living Situation Comment: Lives with in skilled nursing apartment current occupational status: retired How many Children do You have: 2 Other Information That Helps Us Care for You: Yes (REQUEST HOME HEALTH AFTER SURGERY/ DOESN'T DRIVE) Feels Safe at Home: Yes Childhood Exposure to Second-Hand Smoke: Yes caffeine: Yes (Coffee 2 cups per day.) during the past year weight has: remained stable Dental Care, Regularly: No Physical Activity Frequency: Does not Exercise Seatbelt Use: always Sunscreen Use: Yes Assistive Devices: Walker Review of Systems Review of Systems: All systems reviewed & are unremarkable except as noted in HPI & below Physical Exam Physical Exam: Constitutional: No acute distress HEENT: EOMI, PERRLA, right neck dressing in place, minimal hematoma around the incision site Respiratory system: Good air entry bilaterally, no wheeze, no rhonchi, no crackles CVS: S1-S2 positive, no murmurs or gallops Abdomen: Soft, nontender, nondistended, positive bowel sounds x4 Extremities: +2 pulses bilaterally radialis/ dorsalis pedis, no cyanosis, +1 edema bilateral lower extremity Neuro: Awake alert oriented x3, cranial nerves II to XII grossly intact Psych: Normal mood and affect G/U: Positive [place] Skin: no rashes, warm and dry Lymphatic: no cervical or axillary lymphadenopathy Results & Data Results & Data ([facility]) Vital Signs (Past 12 Hours) Vital Signs Temp Pulse Resp BP BP Pulse Ox 05/21/21 13:42 35.8 C L 05/21/21 12:35 36.2 C L 74 17 152/59 H 99 05/21/21 12:25 81 17 158/61 H 99 05/21/21 12:15 69 18 151/62 H 99 05/21/21 12:05 72 18 144/56 H 99 05/21/21 11:55 74 18 179/94 H 99 05/21/21 11:48 36.2 C L 74 18 150/81 H 95 05/21/21 06:22 36.6 C 74 20 136/68 95 Coding Level of Care Code 27920 Inpt Consult Level 5 Diagnoses Status post carotid endarterectomy Z98.890 Obesity E66.9 Rheumatoid arthritis M06.9 Time Spent (min) 35
[2021-05-21] MEDS: ceFAZolin 2000MG 2,000 MG/15 ML SYR IV SCH (16:32)
--- NOTE | 2021-05-21 16:33 | XRay Report ---
XR chest 1V portable HISTORY: Shortness of breath. COMPARISON: Chest 02/27/2021. FINDINGS: Skin dago are noted within the right neck base. No pneumothorax. No pleural effusions. T he heart remains mildly enlarged. There is mild interstitial thickening. This may be chronic. No new focal lung consolidations to suggest pneumonia. No evidence for pulmonary edema. A few bibasilar line ar densities favor subsegmental atelectasis. IMPRESSION: 1. No acute process within the chest. 2. Cardiomegaly and mild interstitial thickening persists. 3. A few bibasilar linear densities favor subsegmental atelectasis. 4. Surgical clips noted within the right neck base. ACT 112: Negative or not required by law. Electronically signed by: Venu Wallace M.D. 05/21/2021 4:31 PM
[2021-05-21 19:24] LABS: Hematocrit (blood only) 29.6 % (37-47); Hemoglobin 9.8 g/dL (12.0-16.0)
[2021-05-21] MEDS: METOPROLOL TARTRATE 50 MG TAB PO SCH (20:25)
[2021-05-21] MEDS: CEROVITE ADV FORMULA TAB PO SCH (20:26)
[2021-05-21] MEDS: ARTIFICIAL TEARS OPB SCH (20:27)
[2021-05-21] MEDS ORDERED: ATORVASTATIN 40 MG TAB PO SCH (21:00)
[2021-05-22] MEDS: ceFAZolin 2000MG 2,000 MG/15 ML SYR IV SCH (00:46)
[2021-05-22 04:56] LABS: Basophils # (auto) 0.01 K/uL (0-0.2); Basophils % (auto) 0.2 %; Hematocrit (blood only) 27.8 % (37-47); Hemoglobin 9.1 g/dL (12.0-16.0); Immature Granulocytes # (auto) 0.01 K/uL (0.00-0.02); Immature Granulocytes % (auto) 0.2 %; Lymphocytes # (auto) 0.76 K/uL (1.2-3.4); Lymphocytes % (auto) 11.6 %; Mean Corpuscular Hemoglobin 32.4 pg (25-34); Mean Corpuscular Hgb Conc 32.7 g/dL (32-36); Mean Corpuscular Volume 98.9 fL (80-100); Mean Platelet Volume 9.1 fL (7.4-10.4); Monocytes # (auto) 0.53 K/uL (0.11-0.59); Monocytes % (auto) 8.1 %; Neutrophils # (auto) 5.26 K/uL (1.4-6.5); Neutrophils % (auto) 79.9 %; Platelet Count 185 K/uL (130-400); RDW Coefficient of Variation 14.3 % (11.5-14.5); RDW Standard Deviation 51.5 fL (36.4-46.3); Red Blood Count 2.81 M/uL (4.2-5.4); White Blood Count 6.57 K/uL (4.8-10.8)
[2021-05-22 05:18] LABS: BUN Creatinine Ratio 16.9 (10-20); Calcium 8.8 mg/dl (8.5-10.1); Creatinine Clr Calc Pharmacy 81.5 ml/min; Est GFR (African American) 97.2 ml/min; Est GFR (Non-African American) 83.9 ml/min; Magnesium 1.8 mg/dl (1.7-2.4); Phosphorus 3.6 mg/dl (2.5-4.9); Potassium 4.1 mmol/L (3.5-5.1)
[2021-05-22] MEDS ORDERED: LEVOTHYROXINE SODIUM 75 MCG TABLET PO SCH (06:30)
[2021-05-22] MEDS ORDERED: MAGNESIUM SULFATE / D5W 1 GM/100 ML BAG IV ONE (08:00)
[2021-05-22] MEDS ORDERED: ISOSORBIDE MONO EXTENDED REL 60 MG TABCR PO SCH (09:00)
[2021-05-22] MEDS ORDERED: RIVAROXABAN 2.5 MG TAB PO SCH (09:00)
[2021-05-22] MEDS ORDERED: FOLIC ACID 1 MG TAB PO SCH (09:00)
[2021-05-22] MEDS ORDERED: CHOLECALCIFEROL 1,000 UNITS 25 MCG TAB PO SCH (09:00)
[2021-05-22] MEDS ORDERED: MULTIVITAMIN TAB PO SCH (09:00)
[2021-05-22] MEDS ORDERED: PANTOprazole 40 MG TAB PO SCH (09:00)
[2021-05-22] MEDS ORDERED: FUROSEMIDE 40 MG TAB PO SCH (09:00)
[2021-05-22] MEDS ORDERED: ASPIRIN 81 MG CHEW PO SCH (09:00)
[2021-05-22] MEDS: DOCUSATE SODIUM 100 MG CAP PO SCH ×2 (09:12→09:26)
[2021-05-22] MEDS: CEROVITE ADV FORMULA TAB PO SCH (09:13)
[2021-05-22] MEDS: METOPROLOL TARTRATE 50 MG TAB PO SCH (09:13)
[2021-05-22] MEDS: ARTIFICIAL TEARS OPB SCH (09:13)
--- NOTE | 2021-05-22 10:08 | Critical Care Progress Note ---
Date of Service May 22, 2021 Assessment & Plan (1) Status post carotid endarterectomy: (2) Obesity: (3) Rheumatoid arthritis: Plan: --S/p carotid endarterectomy Performed by Dr. Barnes 05/21/2021 Continue to monitor neurological status every 4 hours Monitor H&H Continue with statin --Hypertension Continue with home blood pressure medication --Dyslipidemia Continue with atorvastatin --Hypothyroidism Continue with levothyroxine --Prophylaxis VTE: Xarelto GI: Pantoprazole Lines: Left radial Diet: Cardiac Plan: In/out: +340, urine output 1100 Magnesium being replaced Patient hemodynamically stable, H&H stable DC A-line. I think she is stable to be downgraded to medical floor Please note the above document was generated using voice recognition software. It may contain grammatical, syntax or spelling errors.Any formal questions or concerns about the content, text or information contained within the body of this dictation should be directly addressed to the provider for clarification. Admission and Anticipated Discharge Date Admission Date: May 21, 2021 Subjective Patient seen and examined at bedside. No acute distress, no erythematous overnight. Denies any headache, no blurry vision No weakness She had her breakfast today. No difficulty swallowing. No nausea or vomiting. Chest pain, no shortness of breath Review of Systems Review of Systems: All systems reviewed & are unremarkable except as noted in HPI & below Physical Exam Physical Exam: Constitutional: No acute distress HEENT: EOMI, PERRLA, right neck dressing in place, minimal hematoma around the incision site Respiratory system: Good air entry bilaterally, no wheeze, no rhonchi, mild crackles bilateral lower CVS: S1-S2 positive, no murmurs or gallops Abdomen: Soft, nontender, nondistended, positive bowel sounds x4 Extremities: +2 pulses bilaterally radialis/ dorsalis pedis, no cyanosis, +1 edema bilateral lower extremity Neuro: Awake alert oriented x3, cranial nerves II to XII grossly intact Psych: Normal mood and affect G/U: Positive [place] Skin: no rashes, warm and dry Lymphatic: no cervical or axillary lymphadenopathy Results & Data Results & Data ([facility]) Vital Signs (Past 12 Hours) Vital Signs Temp Pulse Resp BP Pulse Ox 05/22/21 07:35 36.6 C 05/22/21 06:00 64 12 128/64 90 05/22/21 05:01 65 13 110/71 93 05/22/21 05:00 67 14 93 05/22/21 04:01 70 14 118/69 97 05/22/21 04:00 78 16 142/54 H 97 05/22/21 03:00 69 26 H 96 05/22/21 02:00 77 16 122/62 96 05/22/21 01:00 72 13 118/58 L 92 05/22/21 00:01 82 15 122/61 96 05/22/21 00:00 85 14 138/51 L 96 05/21/21 23:00 79 13 93 Laboratory Results 05/22/21 04:33 05/22/21 04:33 Coding Level of Care Code 77229 Subseq Hosp Care Lvl 2 Diagnoses Status post carotid endarterectomy Z98.890 Obesity E66.9 Rheumatoid arthritis M06.9
--- NOTE | 2021-05-22 14:41 | Surgery Progress Note ---
Date of Service May 22, 2021 Assessment & Plan (1) Status post carotid endarterectomy: Plan: Patient doing well Will d/c today. Admission and Anticipated Discharge Date Admission Date: May 21, 2021 Subjective Patient without complaints. Swallowing food and drink without difficulty. Denies focal deficits. Physical Exam Constitutional: WD/WN, vitals as above Neck: trachea midline minimal neck swelling, ecchymosis on right side of neck Respiratory: normal respiratory effort, lungs clear to auscultation Cardiovascular: Rate/Rhythm: regular rate and regular rhythm Musculoskeletal: Extremities: strength 5/5 throughout Skin: + incision (dry and clean) Neurologic: CN's II-XI intact bilaterally and moves all extremities; no focal motor deficits Psychiatric: slight hoarseness, improved from yesterday Results & Data ([facility]) Vital Signs (Past 12 Hours) Vital Signs Temp Pulse Resp BP Pulse Ox 05/22/21 14:30 36.6 C 05/22/21 14:01 76 15 137/62 05/22/21 14:00 75 16 95 05/22/21 13:00 76 103/84 94 05/22/21 12:00 73 122/60 93 05/22/21 11:00 75 123/59 L 94 05/22/21 10:00 86 142/73 H 97 05/22/21 09:51 85 149/66 H 95 05/22/21 09:00 79 15 112/1 L 90 05/22/21 08:01 80 17 92 05/22/21 08:00 80 18 94 05/22/21 07:35 36.6 C 05/22/21 07:00 70 14 125/70 94 05/22/21 06:00 64 12 128/64 90 05/22/21 05:01 65 13 110/71 93 05/22/21 05:00 67 14 93 05/22/21 04:01 70 14 118/69 97 05/22/21 04:00 78 16 142/54 H 97 05/22/21 03:00 69 26 H 96
--- NOTE | 2021-05-23 11:20 | Discharge Summary ---
Date of Service May 23, 2021 Admission HPI Per Admitting Provider May 05, 2021 Name: EDDA STEWART [facility] [place] Number: [id number] : 1940 Date of Service: 05/05/2021 Tim Roy MD [facility] [address] [place] [address] Roy: We had the pleasure of seeing Ms. Edda Stewart in the Vascular Surgery office as a new patient consultation for carotid artery stenosis. As you know, this is a very pleasant 81-year-old female who underwent previous carotid endarterectomy on the right in [address] Deniz Prince for asymptomatic right carotid artery stenosis. She has been following with Dr. Roy since this time. She indicates that she has had annual carotid ultrasounds. As of late, her recent ultrasound suggested a greater than 80% stenosis on the right. Then following that, she underwent a CT scan which confirmed that she had severe stenosis of the bilateral carotid arteries thus prompting her referral over to our office. Ms. Stewart does describe an episode of chest pain in January for which she was seen at [facility]. She describes this as a feeling as though there was a fist in her chest. However, associated with this episode, there was left arm pain and numbness and interestingly her left leg felt numb and tingly as well at this time. The symptoms lasted a few hours. It sounds like she had quite an extensive cardiac workup including an echocardiogram and nuclear stress test. She had no cardiac intervention performed at that time. She does have a history of several prior heart attacks and indicates that she had a "bad heart attack" in 2006 and has had 3 since that time. She has never had open-heart surgery. She indicates that she has had coronary artery stenting. She does indicate that she has burning in her chest when she is exerting herself, which includes walking 1 [address]. She gets dyspnea on exertion with walking the length of 1 city block which limits her activity. She denies any history of stroke or TIA. She does indicate that over the last couple of years, she has episodes of "mask" coming over 1 eye or the other. These episodes last a few minutes. She indicates that they occur mostly on the left, however, at times also occur on the right. She feels that they occur more often at night. She does not associate them with changes in position. In addition, she has episodes of blurred vision. For her vision changes, she had been seen by an entry level finance who indicated that she has early macular degeneration. She denies any numbness, tingling, or weakness at this time. Other than the episode in January, she denies any other extremity numbness, tingling, or weakness. Her medical history is notable for coronary artery disease as previously described. She denies history of heart failure. She does have early macular degeneration. She has a right ovarian cyst. She has carotid artery stenosis, gastroesophageal reflux disease, rheumatoid arthritis, psoriatic arthritis, and osteoarthritis. Her surgical history is notable for coronary artery stents, bilateral carpal tunnel release, ulnar nerve transposition on the right, bilateral knee replacements, basal cell carcinoma excision from her nose, tonsillectomy (1950), bilateral cataract surgery, and laser eye surgery. She also had her right carotid endarterectomy in 2008. Her social history is notable for she has never smoked. She does not drink and she does not use any recreational drugs. 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 She is and lives at home with her whom she reports had a large stroke in December, and as such, can no longer drive and she does help him with some of his activities of daily life. Her family history is positive for heart disease, hypertension, diabetes, c ancer, circulation problems, and stroke. Her home medications include aspirin 81 mg daily and Xarelto 2.5 mg b.i.d. She does take atorvastatin 80 mg daily. PHYSICAL EXAMINATION: Notable for oxygen saturation 98% on room air, heart rate of 68, blood pressure is 110/72. She is well appearing, well nourished, in no acute distress. She is awake, alert, responds to questions appropriately. She does appear mildly short of breath after speaking 2 or 3 sentences. On auscultation of her lungs, her lung freire are clear to auscultation bilaterally. On cardiac auscultation, she has a regular rate and rhythm with no murmurs, rubs, or gallops appreciated. Abdomen is soft, nontender, nondistended. Radial pulses are palpable bilaterally. On examination of her right neck, she has a well-healed longitudinal scar along the border of the sternocleidomastoid, which is well healed. She has bilateral carotid bruits which are readily audible. Cranial nerves 2 through 12 are intact. Motor and sensory examinations are grossly intact throughout all 4 extremities. In review of her CT that was performed at [facility], this is notable for significant high-grade stenosis of the right carotid artery, what appears just proximal to the prior right carotid endarterectomy patch. There is also greater than 80% stenosis of the left carotid artery. In summary, this is a very pleasant 81-year-old female with a history of prior right carotid endarterectomy, now with re-stenosis just proximal to her right carotid patch. I do think that she is describing symptoms that are concerning for symptomatic carotid disease given her left upper extremity and left lower extremity numbness, tingling, and weakness back in January. Thus I believe that she would benefit from a right carotid endarterectomy extending the patch more proximally on the right side. We discussed the procedure including its associated risks and alternatives. The patient wishes to proceed with the procedure. We will get her scheduled for surgery. In regard to the left side, I am concerned about her symptoms of vision loss. However, I am not certain if this represents amaurosis fugax. However, her description is certainly concerning for such in the presence of greater than 80%stenosis on CT. We will see how she does with the right side and then discuss pursuing the repair of the left side at that time. Thank you for allowing me to participate in the care of this patient. Please do not hesitate to contact me with questions or concerns. Sincerely, I saw and evaluated the patient. Discussed with the resident and agree with the resident's findings and plan as documented in the resident's note. Signature Line Electronic Signature on File Toya Taylor MD Author Signature Dt/Tm: 05/06/2021 07:47 AM Resident Division of Vascular Surgery Electronically Reviewed/Signed by: MD Ham Miller Signature Dt/Tm: 05/07/2021 08:12 AM French Folding Machine Operator Honorio Gonzalez [facility] [place], [address] [place] [address] ST /CO Result Type: .Outpt Ltr Date of Service: May 05, 2021 00:00 EST Authorization Status: Final Author or Import Date: MD Claudia, Toya on May 05, 2021 15:31 EST Verified By: MD Molly, Lexx Quezada on May 07, 2021 08:12 EST Encounter info: [id number], [facility], Clinic, 05/05/2021 - 05/05/2021 Contributor system: [id number] Admission Exam Per Admitting Provider PHYSICAL EXAMINATION: Notable for oxygen saturation 98% on room air, heart rate of 68, blood pressure is 110/72. She is well appearing, well nourished, in no acute distress. She is awake, alert, responds to questions appropriately. She does appear mildly short of breath after speaking 2 or 3 sentences. On auscultation of her lungs, her lung freire are clear to auscultation bilateral ly. On cardiac auscultation, she has a regular rate and rhythm with no murmurs, rubs, or gallops appreciated. Abdomen is soft, nontender, nondistended. Radial pulses are palpable bilaterally. On examination of her right neck, she has a well-healed longitudinal scar along the border of the sternocleidomastoid, which is well healed. She has bilateral carotid bruits which are readily audible. C ranial nerves 2 through 12 are intact. Motor and sensory examinations are grossly intact throughout all 4 extremities. Principal Diagnosis 1. s/p redo R CEA 2. R ICA restenosis Discharge Exam Constitutional WD/WN, vitals as above Neck trachea midline Respiratory normal respiratory effort, lungs clear to auscultation Cardiovascular Rate/Rhythm: regular rate and regular rhythm Musculoskeletal Extremities: strength 5/5 throughout Skin + incision (dry and clean) Neurologic CN's II-XI intact bilaterally and moves all extremities; no focal motor deficits Discharge Data Allergies Allergy/AdvReac Type Severity Reaction Status Date / Time gabapentin Allergy Unknown Severe Verified 05/21/21 05:55 diffuse swelling, dyspnea tramadol Allergy Unknown Flushing Verified 05/21/21 05:55 codeine AdvReac Unknown Hallucinati Verified 05/21/21 05:55 ons morphine AdvReac Unknown Dyspepsia Verified 05/21/21 05:55 (pt states "she won't take" 01/25/07) Consultations 05/21/21 13:21 Consult Insole Taper Routine Procedures Performed Operation Date: 05/21/21 07:30 Actual Procedures p Redo Right Carotid Endarterectomy(Right) - Lexx Barnes MD Hospital Course (1) Status post carotid endarterectomy: Patient doing well POD #1 Will d/c today. Total Time Total Time Spent Total Time Spent (In Minutes): 0 Discharge Plan Discharge Items Patient Disposition: Home - Self-Care Reason For Visit: Restenosis Right Common Carotid Artery Discharge Diagnosis: Recurrent right carotid artery stenosis, redo right carotid endarterectomy Activity: Per Instructions section Bathing: May shower/bathe in 3 days Non-emergency contact: Surgeon Call non-emergency contact if: your temperature is above 101.5, your wound has increased redness, your wound has increased drainage and your wound pain has increased Follow-up/Referrals: Gennaro Cedeno CRNP [Primary Care Provider] - 05/28/21 7:00 am Diet: Heart Healthy Addtl Attending Provider Instructions: SPECIAL CARE INSTRUCTIONS: Medications: * Continue to take Aspirin as directed. Incision Care: * You may shower, but do not rub incision. You may let the warm soapy water run over it. Be sure to dry the incision well after bathing. * Do not shave directly over the incision until it is healed. * DO NOT IMMERSE THE INCISION IN A TUB/POOL/etc. UNTIL HEALED. Restrictions: * Do not drive for at least one week or if you are still taking any narcotic pain medication. * Do not lift anything heavier than a gallon of milk for one week after going home. Possible Complications: * Numbness - It is normal to have some numbness around the incision. Numbness can extend beyond the incision to areas of the neck, ear and face. The numbness is due to bruising of nerves during the surgery and will gradually improve over a period of months. * Hoarseness/Difficulty Speaking and Swallowing - The bruising of nerves in the neck can also cause a hoarse voice, difficulty speaking or swallowing. This may improve over time, HOWEVER, if it continues for more than a few days please contact our office ([phone]). * Excessive Swelling - There will be some swelling immediately after surgery which usually resolves within one week. If you notice that the swelling is getting worse, notify your surgeon ([phone]). * Drainage/Bleeding - If there is any drainage or bleeding, it should be a very small amount (less than a teaspoon per day). If you have excessive bleeding or drainage from the incision, call your surgeon ([phone]) right away. ACTIVATION OF EMERGENCY MEDICAL SYSTEM: Call 911, immediately, if you experience any of the following: Warning Signs and Symptoms of Stroke: * Sudden numbness or weakness of the face, arm or leg, especially on one side of the body * Sudden confusion, trouble speaking or understanding * Sudden trouble seeing in one or both eyes * Sudden trouble walking, dizziness, loss of balance or coordination * Sudden severe headache with no cause Do not delay calling 911 if you experience any warning signs or symptoms of a stroke. Delay in seeking medical attention may affect what treatments can be given to you. Risk Factors for Stroke: You can reduce your chances of stroke by working with your medical provider to adopt a healthy lifestyle. Some specific ways to lower your chance of stroke are: * If you are a smoker, now is the time to stop smoking cigarettes * If you are diabetic, improve the control of your blood sugars * Avoid excessive amounts of alcohol * Control high blood pressure * Lose weight if you are overweight * Be sure to lead an active lifestyle * Eat a healthy diet low in salt, cholesterol and fat You should know about other risk factors for stroke that you are unable to control. These include: * Age 55 years or older * Male gender * Certain racial groups: , or / * Family History of Stroke, Mini stroke or Heart Attack * Sickle Cell Disease You will be receiving a call from the Vascular Surgery Nurse after you are discharged. FOLLOW UP VISIT: It is important for you to keep your follow up appointments with your medical provider. Keep any scheduled doctor appointments. Call [phone] to schedule a follow up appointment if one not already scheduled. Pending Studies at Discharge: No Stand-Alone Forms: [employer], Smoking Cessation Medications and DC Order Prescriptions: New oxycodone-acetaminophen [Percocet] 5-325 mg tablet 1 tab PO Q8H PRN (Reason: pain) Qty: 10 RF: 0 Continued metoprolol tartrate 50 mg tablet 50 mg PO BID Qty: 180 RF: 3 atorvastatin 80 mg tablet 80 mg PO QPM Qty: 90 RF: 1 pantoprazole 40 mg tablet,delayed release (DR/EC) 40 mg PO QAM Qty: 90 RF: 1 Xarelto 2.5 mg tablet 2.5 mg PO BID Qty: 60 RF: 2 levothyroxine 75 mcg tablet 75 mcg PO QAM Qty: 90 RF: 1 ICaps AREDS [id number] capsule 1 cap PO BID RF: 0 Refresh Optive 1-0.9 % drops,gel 1 drp ophthalmic (eye) BID RF: 0 acetaminophen 500 mg tablet 1,000 mg PO TID PRN (Reason: arthritis ) RF: 0 aspirin 81 mg Tablet,Chewable 81 mg PO QAM RF: 0 docusate sodium 100 mg Tablet 100 mg PO QAM RF: 0 nitroglycerin 0.4 mg tablet, sublingual 0.4 mg Sublingual Q5M PRN (Reason: chest pain) RF: 0 clobetasol 0.05 % ointment 1 applic TOP BID PRN (Reason: Rash, HANDS AND FEET) RF: 0 multivitamin Tablet 1 tab PO QAM RF: 0 furosemide 40 mg tablet 40 mg PO QAM RF: 0 folic acid 1 mg tablet 2 mg PO QAM RF: 0 cholecalciferol (vitamin D3) [Vitamin D3] 1,000 unit tablet 2,000 unit PO QAM RF: 0 isosorbide mononitrate 60 mg tablet extended release 24 hr 120 mg PO QAM Qty: 180 RF: 3 Discharge Orders: Discharge Order (Routine); Ordered 05/22/21 Ordered By: Lexx Barnes Admission Data Admit Date/Time: 05/21/21 07:23 Attending Provider: Lexx Barnes Admit Provider: Lexx Barnes Primary Care Provider: Gennaro Cedeno Other Providers: Lebron Larkin ; Lex Pennington ; Rafael Elaine ; Phil Justice ; Jimmy Garcia ; Duncan Perez ; Anju Rodriguez ; Vel Koenig ; Vinod Welch [facility] Other Interventions: Discharge Summary Assessment (RN) Last Done: 05/22/21 15:07
== END 2021-05-22 16:13 | disposition home health service (06) | DRG 39 ==
LOC: ASU 05:26 → 1E 07:23

== ENCOUNTER 2022-01-20 06:02 | Inpatient (IN) ==
--- NOTE | 2021-12-31 09:07 | PAT Medication Instructions ---
Medication Instructions Date of Service December 31, 2021 Home Medications Medication Instructions Recorded isosorbide mononitrate 60 mg 120 mg PO QAM #180 tabs 02/14/21 tablet,extended release 24 hr Shower Chair #1 ea 05/28/21 metoprolol tartrate 50 mg tablet 50 mg PO BID #180 tabs 06/26/21 atorvastatin 80 mg tablet 80 mg PO QPM #90 tabs 07/14/21 pantoprazole 40 mg tablet,delayed 40 mg PO QAM #90 tabs 07/29/21 release furosemide 40 mg tablet 40 mg PO QAM #90 tabs 08/20/21 folic acid 1 mg tablet 2 mg PO QAM #180 tabs 10/28/21 levothyroxine 75 mcg tablet 75 mcg PO QAM #90 tabs 10/29/21 walker (Ultra-Light Rollator misc) #1 ea 12/03/21 aspirin 81 mg chewable tablet 81 mg PO QAM docusate sodium 100 mg tablet 100 mg PO QAM nitroglycerin 0.4 mg sublingual tablet 0.4 mg sublingual Q5M PRN acetaminophen 500 mg tablet 1,000 mg PO TID PRN carboxymethylcellulose 1 %-glycerin 0.9 % eye gel drops (Refresh Optive) 1 drp ophthalmic (eye) BID cholecalciferol (vitamin D3) 25 mcg (1,000 unit) tablet (Vitamin D3) 2,000 unit PO QAM multivitamin 1 tab PO QAM isosorbide mononitrate 60 mg tablet,extended release 24 hr 120 mg PO QAM clobetasol 0.05 % topical ointment 1 applic topical BID PRN Shower Chair metoprolol tartrate 50 mg tablet 50 mg PO BID atorvastatin 80 mg tablet 80 mg PO QPM pantoprazole 40 mg tablet,delayed release 40 mg PO QAM furosemide 40 mg tablet 40 mg PO QAM vit C 226 mg-vit E 90 mg-copper 0.8 mg-zinc oxide-lutein 5 mg capsule (PreserVision Lutein) 1 cap PO BID folic acid 1 mg tablet 2 mg PO QAM levothyroxine 75 mcg tablet 75 mcg PO QAM walker (Ultra-Light Rollator misc) Continue as directed nitroglycerin 0.4 mg sublingual tablet 0.4 mg sublingual Q5M PRN(if needed) ASK your prescriber and surgeon aspirin 81 mg chewable tablet 81 mg PO QAM STOP taking 2 weeks before surgery vit C 226 mg-vit E 90 mg-copper 0.8 mg-zinc oxide-lutein 5 mg capsule (PreserVision Lutein) 1 cap PO BID STOP taking 24 hours before surgery clobetasol 0.05 % topical ointment 1 applic topical BID PRN DO NOT take the morning of surgery docusate sodium 100 mg tablet 100 mg PO QAM cholecalciferol (vitamin D3) 25 mcg (1,000 unit) tablet (Vitamin D3) 2,000 unit PO QAM multivitamin 1 tab PO QAM furosemide 40 mg tablet 40 mg PO QAM folic acid 1 mg tablet 2 mg PO QAM Take morning of surgery With a small sip of water, OTHERWISE NOTHING TO EAT OR DRINK AFTER MIDNIGHT: acetaminophen 500 mg tablet 1,000 mg PO TID PRN(if needed) carboxymethylcellulose 1 %-glycerin 0.9 % eye gel drops (Refresh Optive) 1 drp ophthalmic (eye) BID isosorbide mononitrate 60 mg tablet,extended release 24 hr 120 mg PO QAM metoprolol tartrate 50 mg tablet 50 mg PO BID pantoprazole 40 mg tablet,delayed release 40 mg PO QAM levothyroxine 75 mcg tablet 75 mcg PO QAM Take evening before surgery acetaminophen 500 mg tablet 1,000 mg PO TID PRN(if needed) carboxymethylcellulose 1 %-glycerin 0.9 % eye gel drops (Refresh Optive) 1 drp ophthalmic (eye) BID metoprolol tartrate 50 mg tablet 50 mg PO BID atorvastatin 80 mg tablet 80 mg PO QPM Other Notes If you have any questions please call us at [phone] or [phone] or [phone] or [phone]
--- NOTE | 2022-01-05 13:33 | Anesthesiology Consultation ---
Date of Service January 05, 2022 Assessment & Plan (1) Encounter for pre-operative examination: - COVID screening: Per assessment on 01/05: No known COVID-19 positive contacts or current COVID-19 related symptoms. Travel screen negative. Patient vaccinated. At surgeon discretion if preop Covid testing being done. -Cardiology office visit (02/27/21): "post prior PCI with drug-eluting stent to LAD, known occluded right coronary artery.. Ischemic cardiomyopathy, EF 35-40%--recovered LV function on most recent echo 01/2021.. Hypertension-- stable on current regimen.. Carotid artery disease status post right carotid endarterectomy-- approximately 70% stenosis in distal right CCA and 70% stenosis in left ICA bulb.. Stable post recent hospitalization for chest pain. Recent stress test low risk. Home activity limited but no recurrent anginal symptoms. Musculoskeletal left flank pain improved with topical NSAIDs, lidocaine patch. On exam today no signs of heart failure."Carotid duplex testing ordered and recommendation to f/u in 3 months. - S/P Redo Right CEA (05/21/21): Grade 2 view, MAC#3, ETT 7.5 at [facility]. No issues noted per post-op anesthesia progress note. - Cardiology office visit (06/23/21): "Coronary artery disease.. post prior PCI with drug-eluting stent to LAD, known occluded right coronary artery.. Ischemic cardiomyopathy, EF 35-40%--recovered LV function on most recent echo 01/2021.. Hypertension-- stable on current regimen.. Dyslipidemia--on high-intensity statin.. Carotid artery disease status post right redo carotid endarterectomy 05/21/21.. Patient recently underwent right carotid artery redo endarterectomy about 1 month ago. Since then has been dealing with voice hoarseness and dysphagia. Recently seen by vascular surgeon and hopeful symptoms will gradually improved. Also reports shortness of breath on exertion over the past several weeks and generalized fatigue. On exam no signs of heart failure. Recommend CBC, BMP and chest x-ray today. Will contact her with results. - ASA/plavix instructions per surgeon/prescriber. Per pt, advised to continue perioperatively by surgeon. Chart Review Chart Review: Acceptable Risk for Surgery (pending evaluation AM DOS) and P atient seen in Pre Admission Testing Consults Requested none Teaching & Discussion Pre-Anesthesia Teaching/Discussion Notes: Instructed NPO after midnight before surgery,except medications with 15 cc of water. Medication instructions provided according to the PAT guidelines. ASA ASA4 Proposed Anesthesia Anesthesia Type: General Anesthesia Line Insertion: Arterial line Risk / Benefits Reviewed With: PT / POA / Parent / Guardian, Accepts Plan and Informed Consent Obtained Additional Comments: Pt acknowledges cardiac risks and accepts risks of NM, CVA, . History Surgery Operation Date: 01/20/22 08:00 Proposed Procedures p Left Transcarotid Artery Revascularization - Lexx Barnes MD Height/Weight Height: 5 ft 7 in Weight: 89.811 kg Allergies Allergy/AdvReac Type Severity Reaction Status Date / Time gabapentin Allergy Severe Severe Verified 01/20/22 06:19 diffuse swelling, dyspnea tramadol Allergy Mild Flushing Verified 01/20/22 06:19 codeine AdvReac Severe Hallucinati Verified 01/20/22 06:19 ons morphine AdvReac Intermediate Dyspepsia Verified 01/20/22 06:19 (pt states "she won't take" 01/25/07) oxycodone [From Percocet] AdvReac Mild Nausea Verified 01/20/22 06:19 Medications Home Medications Medication Instructions Recorded Confirmed Last Taken aspirin 81 mg chewable tablet 81 mg PO QAM 11/05/17 01/20/22 01/20/22 04:30 docusate sodium 100 mg tablet 100 mg PO QAM 11/05/17 01/20/22 01/18/22 nitroglycerin 0.4 mg sublingual 0.4 mg sublingual Q5M PRN chest 11/22/18 12/30/21 Unknown tablet pain acetaminophen 500 mg tablet 1,000 mg PO TID PRN arthritis 02/11/21 01/20/22 01/20/22 04:30 carboxymethylcellulose 1 1 drp ophthalmic (eye) BID 02/11/21 01/20/22 01/20/22 04:30 %-glycerin 0.9 % eye gel drops (Refresh Optive) cholecalciferol (vitamin D3) 25 2,000 unit PO QAM 02/13/21 01/20/22 01/18/22 mcg (1,000 unit) tablet (Vitamin D3) multivitamin 1 tab PO QAM 02/13/21 01/20/22 01/19/22 08:00 isosorbide mononitrate 60 mg 120 mg PO QAM #180 tabs 02/14/21 01/20/22 01/20/22 04:30 tablet,extended release 24 hr Shower Chair #1 ea 05/28/21 10/22/21 Unknown metoprolol tartrate 50 mg tablet 50 mg PO BID #180 tabs 06/26/21 01/20/22 01/20/22 04:30 pantoprazole 40 mg tablet,delayed 40 mg PO QAM #90 tabs 07/29/21 01/20/22 01/20/22 04:30 release furosemide 40 mg tablet 40 mg PO QAM #90 tabs 08/20/21 01/20/22 01/19/22 08:00 vit C 226 mg-vit E 90 mg-copper 1 cap PO BID 10/22/21 01/20/22 12/29/21 0.8 mg-zinc oxide-lutein 5 mg capsule (PreserVision Lutein) folic acid 1 mg tablet 2 mg PO QAM #180 tabs 10/28/21 01/20/22 01/19/22 08:00 levothyroxine 75 mcg tablet 75 mcg PO QAM #90 tabs 10/29/21 01/20/22 01/20/22 04:30 walker (Ultra-Light Rollator misc) #1 ea 12/03/21 Unknown clopidogrel 75 mg tablet (Plavix) 75 mg PO DAILY 01/05/22 01/20/22 01/12/22 atorvastatin 80 mg tablet 80 mg PO QPM #90 tabs 01/06/22 01/19/22 21:30 clobetasol 0.05 % topical ointment 1 applic topical BID PRN Rash, 01/06/22 01/19/22 08:00 HANDS AND FEET #60 grams ticagrelor 90 mg tablet (Brilinta) 90 mg PO DAILY 01/20/22 01/20/22 01/20/22 04:30 Active Medications Generic Name Dose Route Start Last Admin Trade Name Freq PRN Reason Stop Dose Admin Lactated Ringer's 1,000 mls @ 80 mls/hr 01/20/22 06:00 01/20/22 06:40 Lr IV 01/20/22 18:29 80 mls/hr .[id number] LOS Administration NPO Date Last Intake of Fluids: 01/20/22 Time Last Intake of Fluids: 04:30 Date Last Intake of Solids: 01/19/22 Time Last Intake of Solids: 21:00 Past Medical History Medical History Carotid stenosis, bilateral s/p right carotid endarterectomy (2008), redo R CEA 04/2021 High-grade stenosis at the origin of the left external carotid artery per 11/2021 Neck CTA CKD (chronic kidney disease), stage III Coronary artery disease 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 Roy/[facility] GERD (gastroesophageal reflux disease) History of basal cell carcinoma (BCC) of skin s/p excision History of NM (myocardial infarction) STEMI (2006), 2 other "mild" NM's Hoarseness R/t nerve damage with redo right carotid endarterectomy (04/2021) per pt HTN (hypertension) Controlled with meds Hx of vertigo Hyperlipidemia Hypothyroidism Ischemic cardiomyopathy Macular degeneration "Early stages" Osteoarthritis Psoriatic arthritis Rheumatoid arthritis Previously on MTX (discontinued) Toes, fingers, hips, knees, shoulders affected. Denies neck issues. Right ovarian cyst Under surveillance Spinal stenosis Exercise / Class Metabolic Activity III < 4 Walking/Shop/Light housework Past Family History Family History Mother Diabetes Myocardial infarction Osteoarthritis Breast cancer Lung cancer Stroke Daughter Diabetes Hypertension Father No problems noted. Other COPD (chronic obstructive pulmonary disease) Heart disease No family history of adverse response to anesthesia Denies family history of Ovarian cancer Prostate cancer Colorectal cancer Past Surgical History Surgical History History of anesthesia reaction "Slow to wake" History of cardiac cath Multiple (2019- medical management recommended) History of carpal tunnel release of both wrists History of colonoscopy History of decompression of ulnar nerve Right History of right-sided carotid endarterectomy 2008 > Redo Right CEA (05/21/21): Grade 2 view, MAC#3, ETT 7.5 at [facility]. No issues noted per post-op anesthesia progress note. History of total right knee replacement Hx of cataract surgery R/L S/P tonsillectomy S/P tubal ligation Status post insertion of drug-eluting stent into left anterior descending (LAD) artery 2006 ([facility]) Status post left knee replacement Past Anesthesia History No Family Hx of Anesthesia Complications and Other ("Slow to wake") History of PONV No Hx of PONV and No Hx of Motion Sickness Social History Smoking Status: Never smoker Do You Dip or Chew Tobacco: No Hx Alcohol Use: No Hx Substance Use: No substance use type: does not use Review of Systems Patient denies chest pain, shortness of breath, fever, chills, cough, wheezing, palpitations. Physical Exam Vital Signs Last Vital Signs Temp 36.5 C 01/20/22 06:26 Pulse 73 01/20/22 06:26 Resp 20 01/20/22 06:26 BP 143/79 H 01/20/22 06:26 Pulse Ox 95 01/20/22 06:26 O2 Del Method 01/20/22 06:26 VITALS BP 118/73 P 87 TEMP 98.5 SP02 95%RA RESP 16 PHYSICAL Mildly decreased cervical extension range of motion. Full TMJ range of motion. TMD 3 finger breaths Mallampati Score 3 Dentition: upper/lower full dentures Lungs: clear throughout to auscultation Cardiac: regular rate and rhythm, no murmurs noted Spine: normal Carotid arteries: negative bruit Extremities: no edema Constitutional + obese ENMT Mouth: + edentulous and + small oral opening; no TMJ abnormality Thyromental Distance: > or= 3.5 Finger Breadths Mallampati Class: III Neck normal visual inspection and trachea midline; neck extension not limited Respiratory normal respiratory effort Auscultation: lungs clear to auscultation bilaterally Cardiovascular Rate/Rhythm: regular rate and regular rhythm Heart Sounds: no murmur Vessels: no carotid bruit Musculoskeletal Spine: normal cervical ROM Extremities: full ROM of extremities Neurologic moves all extremities Psychiatric Orientation: alert and oriented x 3 Lab Results Anesthesia Preop Results Results Anesthesia Widget: WBC 5.37 K/ul (4.8-10.8) 01/05/22 Hgb 11.5 g/dl (12.0-16.0) L 01/05/22 Hct 34.5 % (34.1-44.9) 01/05/22 Plt 208 K/uL (130-400) 01/05/22 Na 141 mmol/L (136-145) 01/05/22 K 4.1 mmol/L (3.5-5.1) 01/05/22 Cl 103 mmol/L (98-107) 01/05/22 CO2 31 mmol/L (21-32) 01/05/22 BUN 16 mg/dl (6-23) 01/05/22 Creat 1.23 mg/dl (0.6-1.2) H 01/05/22 Glucose Level 115 mg/dl (70-99(Fasting)) H 01/05/22 PT 10.7 Seconds (9.0-12.0) 01/05/22 PTT 27.8 Seconds (21.0-31.0) 01/05/22 INR 1.0 (0.9-1.1) 01/05/22 SARS-CoV-2, RNA, NAAT NEGATIVE (NEGATIVE) 01/20/22 Blood Type O Positive 01/05/22 Antibody Screen NEGATIVE 01/05/22 Testing Electrocardiogram Date: 01/05/22 SR with first degree AVB at 78bpm. Nondiagnostic inferior Q waves. Compared to 02/14/21, NS TWA no longer evident in anterolateral leads per development technologist comparison. Chest X-Ray Date: 01/05/22 FINDINGS: PA and lateral chest radiographs are compared to study dated 06/23/2021 and correlated with chest CT dated 02/13/2021. The heart is mildly enlarged noting atherosclerotic calcification of the thoracic aorta. The pulmonary vasculature is noncongested. Chronic interstitial thickening is similar to previous. There is bibasilar scarring/atelectasis. The lungs and pleural spaces are otherwise clear. There is no pneumothorax. The skeletal structures are osteopenic. Mild compression deformities are noted in the lower thoracic region. Degenerative change is noted in the shoulders and thoracic spine. Large calcified gallstone are noted in the upper abdomen. IMPRESSION: Cardiomegaly with no active disease in the chest. Echocardiogram Date: 02/14/21 EF 50-55%. Mild LVH. Proximal septal thickening is noted. Positive stress echo for basal to mid inferior ischemia, known RCA chronic total occlusion. No regional motion abnormality. Moderate LAD. Mild AV sclerosis. Mild AR. Mild to moderate MR. RVSP normal. Stress Test Date: 02/18/21 Type: DSE Positive stress echo for basal and mid inferior ischemia. Remaining segments augmented appropriately. Negative dobutamine stress ECG for ischemia 94% MPHR. Findings consistent with known RCA chronic total occlusion. "Low risk" stress test per cardiology office visit note 02/27/21* Cardiac Catheterization Date: 12/23/18 Severe chronic single-vessel coronary artery disease -100% proximal RCA chronic total occlusion. Fills partially via right to right and left to right collaterals, widely patent mid LAD stent Normal left and right-sided intracardiac filling pressures. Normal pulmonary artery pressures. Recommendations: Continued ASCVD risk factor modification. No high risk cardiac findings. Okay to resume regular exercise. Other Testing Neck CTA (12/15/21) Atherosclerotic plaque of the right common and internal carotid arteries redemonstrated without significant stenosis, improved from the 04/30/2021 exam. Extensive atherosclerotic plaque of the left distal common carotid artery, carotid bulb and proximal left ICA which appears similar to mildly progressed from the 04/30/2021 exam resulting in approximately 80% stenosis of the common carotid artery and 70% stenosis of the proximal cervical segment left ICA. High-grade stenosis at the origin of the left external carotid artery again noted. COVID-19 Risk Screen Screening Information COVID-19 Screen Date: 01/05/22 Exposure 21 Days Family/Household +COVID Last 21 Days: No Exposure 10 Days Any COVID Exposure Last 10 Days: No Symptoms Last 10 Days Experienced COVID Sx Last 10 Days: No + COVID 0-90 Days COVID + in Last 0-90 Days: No
[~2022-01-20 06:02] MED LIST changes: -ACET-1256 PO; -AMOX500C3 PO; -ASPCH81 PO; -ATOR-26 PO; +CEFAZOLIN 2,000 MG/15 ML SYR IV SCH; -CHOL100010 PO; -DOCU100C PO; -FOLI1TAB8 PO; -FURO-85 PO; -ISOS60TA25 PO; +LACTATED RINGER'S 1,000 ML IV SCH; -LISI5TAB PO; -METH2.5T PO; -METO50TA8 PO; -MULT-280 PO; -NITR0.4S UT; -PRLSR20 PO; -SYN75 PO; -ZOLE5INJ IV
[2022-01-20] MEDS ORDERED: THROMBIN FOR SOLN 20000 UNIT KIT ONE (07:10)
[2022-01-20] MEDS ORDERED: NITROGLYCERIN/D5W 100MCG/ML 20ML SYR ONE (07:10)
[2022-01-20] MEDS ORDERED: PHENYLEPHRINE HCL 10 MG/ML VIAL ONE (07:10)
[2022-01-20] MEDS ORDERED: NITROGLYCERIN/D5W 100 MCG/ML BTL ONE (07:10)
[2022-01-20] MEDS ORDERED: GELATIN SPONGE SZ 100 ONE (07:10)
[2022-01-20] MEDS ORDERED: ONDANSETRON INJ 2 MG/ML 2 ML VIAL IV PRN (07:18)
[2022-01-20] MEDS ORDERED: HYDROmorphone INJ 1 MG/ML SYRINGE IV PRN (07:18)
[2022-01-20] MEDS ORDERED: ePHEDrine sulfate 50 MG/ML AMP IV PRN (07:18)
[2022-01-20] MEDS ORDERED: fentaNYL citrate 100 MCG/2 ML VIAL IV PRN (07:18)
[2022-01-20] MEDS ORDERED: ATROPINE SULFATE 0.1 MG/ML 10ML SYR IV PRN (07:18)
[2022-01-20] MEDS ORDERED: DEXAMETHASONE SOD INJ 4 MG/ML VIAL IV PRN (07:18)
[2022-01-20] MEDS ORDERED: GLYCOPYRROLATE 0.2 MG/ML VIAL ONE (07:21)
[2022-01-20] MEDS ORDERED: PROPOFOL IV EMULSION 10 MG/ML 20 ML VIAL IV ONE (07:21)
[2022-01-20] MEDS ORDERED: NEOSTIGMINE METHYLSULFATE 1 MG/ML 10ML VIAL ONE (07:21)
[2022-01-20] MEDS ORDERED: ONDANSETRON INJ 2 MG/ML 2 ML VIAL ONE (07:21)
[2022-01-20] MEDS ORDERED: DEXAMETHASONE SOD INJ 4 MG/ML VIAL ONE (07:21)
[2022-01-20] MEDS ORDERED: fentaNYL citrate 100 MCG/2 ML VIAL ONE ×2 (07:22→08:43)
--- NOTE | 2022-01-20 07:29 | History & Physical Report ---
Date of Service January 20, 2022 History of Present Illness Primary Care Provider: ANA Gibson History of Present Illness I the pleasure of seeing Latrice today for follow-up after her CT angio of her carotids. As you know she is an 81-year-old female who underwent a right carotid and a redo right carotid endarterectomy in the past. She now has developed significant narrowing of her left internal carotid artery. She is her e for CT results and to talk about treatment options. Physical Exam Vitals & Measurements HR: 90 (Monitored) BP: 108/68 SpO2: 95% Input and Output - Last 24 hours (Last 8 hours) No I/O Data Found: On exam she is awake alert and oriented x3. She is in no apparent distress. Her blood pressure is 108/68. Neurologic exam is intact to motor and sensory function. CT scan showed significant narrowing of her left internal carotid artery with calcified plaque. Assessment/Plan 1. Occlusion and stenosis of bilateral carotid arteries At this point her options that were recommended is either carotid endarterectomy or TCAR procedure. She does not entirely meet the criteria for TCAR being that her distance between her clavicle and carotid lesion is slightly less than 5 cm and also there is 1 short area of the carotid plaque which is circumferential however its been on the 1 side. In view of this I would still recommend the TCAR being that she did have problems with hoarseness and a temporary period of difficulty swallowing after her last endarterectomy. The hoarseness still persist today to a certain degree. If an endarterectomy was performed there is a chance that we can make the hoarseness worse and she could not be left with a weakly audible voice. She understood these risks and agreed to go ahead with the TCAR procedure if at all possible. We will send the films to the TC[facility] for sizing and evaluation if she is a candidate or not. Even though she is not an ideal candidate I think a TCAR could be done without too much difficulty preserving her cranial nerves. We will keep you informed as to our decision on her follow-up. Sincerely, Yanni Barnes MD Problem List/Past Medical History Ongoing AK (actinic keratosis) Arthritis Asymptomatic carotid artery stenosis BCC (basal cell carcinoma of skin) Chronic kidney disease stage 3 Coronary arteriosclerosis Coronary atherosclerosis Degenerative joint disease involving multiple joints Family history of malignant melanoma Gastroesophageal reflux disease Hypercholesterolemia Hyperlipidemia Hypertensive disorder Hypothyroidism Myocardial infarction Psoriasis Reflux Rheumatoid arthritis of multiple joints S/P carotid endarterectomy SK (seborrheic keratosis) Historical No qualifying data Procedure/Surgical History Right redo CEA (05/21/2021) Shave biopsy of skin (04/27/2016) Cardiac catheterization (07/2014) Shave biopsy of skin (02/14/2013) CEA - Carotid endarterectomy Right (05/05/2008) CABG x 1 - Coronary artery bypass graft x 1 Carpal tunnel Cataract Knee replacement Surgery Medications Inpatient No active inpatient medications Home aspirin, 81 mg, PO, Daily betamethasone dipropionate, augmented 0.05% topical cream, See Instructions, 1 refills Colace 100 mg oral capsule, 100 mg= 1 cap, PO, Daily, PRN folic acid 1 mg oral tablet, 1 mg= 1 tab, PO, Daily hydrocortisone 2.5% topical cream, 1 appl, topical, bid, 2 refills isosorbide mononitrate 60 mg oral tablet, extended release, 120 mg= 2 tab, PO, qAM Lasix 40 mg oral tablet, 40 mg= 1 tab, PO, Daily Lipitor, 80 mg, PO, qhs metoprolol, 50 mg, PO, bid multivitamin, 1 tab, PO, Daily nitroglycerin 0.4 mg sublingual tablet, 0.4 mg= 1 tab, SL, q5min, PRN pantoprazole 40 mg oral delayed release tablet, 40 mg= 1 tab, PO, Daily Plavix 75 mg oral tablet, 75 mg= 1 tab, PO, Daily, 11 refills PreserVision AREDS 2 Synthroid, 75 mcg, PO, Daily Tylenol Extra Strength 500 mg oral tablet, 1000 mg= 2 tab, PO, bid Allergies codeine (nausea, hallucinations,skin sensations) gabapentin (lightheaded, nausea, legs swelling) morphine (nausea, hallucinations, skin sensations) oxyCODONE (Nausea) traMADol (flushing) Social History Smoking Status Never smoked cigarettes Signature Line Electronic Signature on File Lexx Barnes MD Author Signature Dt/Tm: 12/29/2021 04:18 PM Indian Nanny Milton S. [facility] [place]-[address], [address] [place] [address] KONSTANTIN Result Type: .Outpt Ltr Date of Service: December 29, 2021 16:17 EDT Authorization Status: Final Subject: Consult Note Author or Import Date: MD Barnes Eugene J on December 29, 2021 16:18 EDT Verified By: MD Barnes Eugene J on December 29, 2021 16:18 EDT Encounter info: [id number], [place] [id number], Clinic, 12/29/2021 - 12/29/2021 Allergies Allergy/AdvReac Type Severity Reaction Status Date / Time gabapentin Allergy Severe Severe Verified 01/20/22 06:19 diffuse swelling, dyspnea tramadol Allergy Mild Flushing Verified 01/20/22 06:19 codeine AdvReac Severe Hallucinati Verified 01/20/22 06:19 ons morphine AdvReac Intermediate Dyspepsia Verified 01/20/22 06:19 (pt states "she won't take" 01/25/07) oxycodone [From Percocet] AdvReac Mild Nausea Verified 01/20/22 06:19 Home Medications Medication Instructions Recorded Confirmed Type aspirin 81 mg chewable tablet 81 mg PO QAM 11/05/17 01/20/22 History docusate sodium 100 mg tablet 100 mg PO QAM 11/05/17 01/20/22 History nitroglycerin 0.4 mg sublingual 0.4 mg sublingual Q5M PRN chest 11/22/18 12/30/21 History tablet pain acetaminophen 500 mg tablet 1,000 mg PO TID PRN arthritis 02/11/21 01/20/22 History carboxymethylcellulose 1 1 drp ophthalmic (eye) BID 02/11/21 01/20/22 History %-glycerin 0.9 % eye gel drops (Refresh Optive) cholecalciferol (vitamin D3) 25 2,000 unit PO QAM 02/13/21 01/20/22 History mcg (1,000 unit) tablet (Vitamin D3) multivitamin 1 tab PO QAM 02/13/21 01/20/22 History isosorbide mononitrate 60 mg 120 mg PO QAM #180 tabs 02/14/21 01/20/22 Rx tablet,extended release 24 hr Shower Chair #1 ea 05/28/21 10/22/21 Rx metoprolol tartrate 50 mg tablet 50 mg PO BID #180 tabs 06/26/21 01/20/22 Rx pantoprazole 40 mg tablet,delayed 40 mg PO QAM #90 tabs 07/29/21 01/20/22 Rx release furosemide 40 mg tablet 40 mg PO QAM #90 tabs 08/20/21 01/20/22 Rx vit C 226 mg-vit E 90 mg-copper 1 cap PO BID 10/22/21 01/20/22 History 0.8 mg-zinc oxide-lutein 5 mg capsule (PreserVision Lutein) folic acid 1 mg tablet 2 mg PO QAM #180 tabs 10/28/21 01/20/22 Rx levothyroxine 75 mcg tablet 75 mcg PO QAM #90 tabs 10/29/21 01/20/22 Rx walker (Ultra-Light Rollator misc) #1 ea 12/03/21 Rx clopidogrel 75 mg tablet (Plavix) 75 mg PO DAILY 01/05/22 01/20/22 History atorvastatin 80 mg tablet 80 mg PO QPM #90 tabs 01/06/22 Rx clobetasol 0.05 % topical ointment 1 applic topical BID PRN Rash, 01/06/22 Rx HANDS AND FEET #60 grams ticagrelor 90 mg tablet (Brilinta) 90 mg PO DAILY 01/20/22 01/20/22 History Past Med/Surg History Medical History Carotid stenosis, bilateral s/p right carotid endarterectomy (2008), redo R CEA 04/2021 High-grade stenosis at the origin of the left external carotid artery per 2021 Neck CTA CKD (chronic kidney disease), stage III Coronary artery disease 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 Roy/[facility] GERD (gastroesophageal reflux disease) History of basal cell carcinoma (BCC) of skin s/p excision History of VA (myocardial infarction) STEMI (2006), 2 other "mild" VA's Hoarseness R/t nerve damage with redo right carotid endarterectomy (04/2021) per pt HTN (hypertension) Controlled with meds Hx of vertigo Hyperlipidemia Hypothyroidism Ischemic cardiomyopathy Macular degeneration "Early stages" Osteoarthritis Psoriatic arthritis Rheumatoid arthritis Previously on MTX (discontinued) Toes, fingers, hips, knees, shoulders affected. Denies neck issues. Right ovarian cyst Under surveillance Spinal stenosis Surgical History History of anesthesia reaction "Slow to wake" History of cardiac cath Multiple (2019- medical management recommended) History of carpal tunnel release of both wrists History of colonoscopy History of decompression of ulnar nerve Right History of right-sided carotid endarterectomy 2009 > Redo Right CEA (05/21/21): Grade 2 view, MAC#3, ETT 7.5 at [facility]. No issues noted per post-op anesthesia progress note. History of total right knee replacement Hx of cataract surgery R/L S/P tonsillectomy S/P tubal ligation Status post insertion of drug-eluting stent into left anterior descending (LAD) artery 2006 ([facility]) Status post left knee replacement Family History Mother Diabetes Myocardial infarction Osteoarthritis Breast cancer Lung cancer Stroke Daughter Diabetes Hypertension Father No problems noted. Other COPD (chronic obstructive pulmonary disease) Heart disease No family history of adverse response to anesthesia Denies family history of Ovarian cancer Prostate cancer Colorectal cancer Social History Smoking Status: Never smoker Second Hand Exposure: No; Do You Dip or Chew Tobacco: No; Hx Alcohol Use: No Hx Substance Use: No Preferred Language: Monegasque Communication Ability: Effective Visual Impairment: Limited Hearing Ability: Normal Organisational Psychologist Required: No Beliefs That Will Affect Care: None marital status: Current Living Situation: Spouse Current Living Situation Comment: Lives with in jail apartment ([facility]) current occupational status: retired How many Children do You have: 4 How many Children do You have Comment: 3 living children (2 daughter, 1 son); lost 1 son Feels Safe at Home: Yes Safety Concerns: Feels Safe At This Time Childhood Exposure to Second-Hand Smoke: Yes caffeine: Yes (Coffee 2 cups per day.) during the past year weight has: remained stable Dental Care, Regularly: No Physical Activity Frequency: Does not Exercise Seatbelt Use: always Sunscreen Use: Yes Assistive Devices: Denture - Upper, Denture - Lower, Glasses and Walker Results & Data ([facility]) Vital Signs (Past 12 Hours) Vital Signs Temp Pulse Resp BP BP Pulse Ox O2 Del Method 01/20/22 06:26 Room Air 01/20/22 06:26 36.5 C 73 20 112/66 143/79 H 95 Room Air
--- NOTE | 2022-01-20 07:38 | History & Physical Bridge Note ---
Date of Service January 20, 2022 History & Physical Bridge Note I have examined the patient, reviewed the History & Physical and in the interval since the performance of the History & Physical I have noted the following changes of clinical significance: no changes noted
[2022-01-20] MEDS ORDERED: SUGAMMADEX SODIUM 200 MG/2 ML VIAL IV ONE (08:26)
[2022-01-20] MEDS ORDERED: ePHEDrine sulfate 50 MG/ML SYR ONE (08:46)
[2022-01-20] MEDS ORDERED: SURGICEL ABSORB HEMOSTAT 2IN X 14IN TOP ONE (08:47)
[2022-01-20] MEDS ORDERED: VISIPAQUE IV PRN (08:47)
[2022-01-20] MEDS ORDERED: HEPARIN SOD (PORCINE) 1000 UNIT/ML ONE (08:51)
[2022-01-20] MEDS ORDERED: LIDOCAINE 2% MPF LOCAL 5 ML VIAL INFIL ONE (08:52)
[2022-01-20] MEDS ORDERED: STAT IV Infusion **Titration per Protocol STA ×2 (08:54→11:39)
[2022-01-20] MEDS ORDERED: PHENYLEPHRINE HCL 20 MG in DEXTROSE 5% 500 ML IV SCH ×2 (09:00→11:39)
[2022-01-20] MEDS ORDERED: ATROPINE SULFATE 1MG/2.5ML SYR ONE (09:33)
[2022-01-20] MEDS ORDERED: ROCURONIUM BROMIDE 10 MG/ML 5 ML VIAL IV ONE (10:10)
[2022-01-20] MEDS ORDERED: LARYING-O-JET KIT (LTA) ONE (10:10)
--- NOTE | 2022-01-20 10:14 | Post Operative Brief Note ---
Immediate Post Op Note v1 Date of Surgery January 20, 2022 Pre & Post Diagnosis Operation Date: 01/20/22 08:00 Pre-Op Diagnosis: Left Internal Carotid Artery Stenosis Post-Op Diagnosis: Left Internal Carotid Artery Stenosis I identified the patient and participated in the time-out.: Yes Procedure Operation Date: 01/20/22 08:00 Actual Procedures p Left Transcarotid Artery Revascularization(Left), ultrasound localization of left common femoral vein- Lexx Barnes MD Surgeon Lexx Barnes MD Direct Support Staff Member MD John AlcarazMinjessica,PAC Estimated Blood Loss 50 Findings Consistent with Post-Op Diagnosis Anesthesia Type General Complications none Disposition Accompanied Patient To Recovery: No Disposition: Recovery Room
--- NOTE | 2022-01-20 10:22 | Procedure Note ---
Angiogram Post Procedure Fluoroscopy Time (minutes): 7.6 Radiation (mGy): 44 Contrast: 15mL Post Operative Report Pre & Post Diagnosis Operation Date: 01/20/22 08:00 Pre-Op Diagnosis: Left Internal Carotid Artery Stenosis Post-Op Diagnosis: Left Internal Carotid Artery Stenosis I identified the patient and participated in the time-out.: Yes Procedure Operation Date: 01/20/22 08:00 Actual Procedures p Left Transcarotid Artery Revascularization(Left) - Lexx Barnes MD Surgeon Lexx Barnes MD Nurse Ldr Lexi Valentin MD Estimated Blood Loss 50 Findings See Below See operative report Specimens none Anesthesia Type General Complications none Disposition Accompanied Patient To Recovery: No Disposition: Recovery Room Description of Procedure Patient was brought to the operating room and placed on the operating table in supine position. General anesthesia induced and a ET tube placed. An a- line had previously been placed in the preoperative area. A surgical timeout was performed to identify patient, procedure site, indications, and allergies. The patient's head was the turned to the right and the ET tube was secured to the right. The patient's left neck and bilateral groins were prepped and draped in a sterile manner. The patient had a 5cm transverse incision just above the left clavicle using a 10 blade. Using sharp and blunt dissection as well as Bovie electrocautery the subcutaneous tissue and the platysma muscle was incised transversely. A superficial vein was clipped. The two heads of the SCM were vertically and the common carotid artery was identified. The common carotid artery was posterior to the internal jugular therefore the jugular vein was retracted using an umbilical tape. The vagus nerve was also identified. An umbilical tape was placed under the common carotid. A 5-0 Prolene stitch in a u fashion was placed in the common carotid artery. This was secured in place on a shod. At this time 8000U of heparin was given to the patient. After 2-3 minutes an ACT was obtained which was >280. Under ultrasound guidance the right common femoral vein was accessed with an 18 gauge needle however there was no blood return therefore the left common femoral vein was accessed with an 18 gauge needle and a J wire was inserted. Then the needle was exchanged for an 8 ukrainian sheath and the sheath was secured to the skin with a silk suture. A TCAR time out was performed and the patient had been previously treated with glycopyrrolate. The micropuncture system was used to access the common carotid, the dilator and wire were removed and a cerebral angiogram was performed. This demonstrated a significant stenosis in the left internal and common carotid artery. The stiff J wire was inserted and stopped in the common carotid. The TCAR sheath was exchanged for the micropuncture sheath. The TCAR sheath was secured to the skin using multiple silk sutures. After the J wire and dilator were removed. The flow reversal system was connected between the arterial sheath in left common carotid and the left common femoral vein. The left common carotid artery was clamped using a profunda clamp. Reversal of flow was confirmed using saline flushes following clamping of the common carotid. Using the monorail system a 4x30 balloon was placed across the common into internal bifurcation and was used to predilate the lesion. The balloon was taken to nominal pressure. Then the balloon was exchanged for a 7x30 stent which was deployed across the left internal carotid into the left common carotid. The lesion was long therefore a 9x30 stent was overlapped into the 7x30 stent. There was residual stenosis of the stent therefore a 5.5x30 balloon was used to postdilate the portion of the stent at the bifurcation which improved the stenosis. After 2 minutes of flow reversal a cerebral angiogram was performed which demonstrated stenosis proximal to the stents therefore a 9x30 stent was placed more proximally into the common carotid overlapping with the previous stents. After waiting 2 minutes of reversal of blood flow following stent manipulation cerebral angiogram were performed which demonstrated patent stents and no signs of dissection or thrombosis. The wire access was removed. The common carotid artery was unclamped for a total of 26 minutes clamp time. The flow reversal system was disconnected and the blood was returned to the patient. The U stitch was tied as the sheath was removed from the common carotid artery. A second 5-0 prolene was used to stop the access site bleeding. Hemostasis of the access site was obtained using Surgicel. The patient was given protamine at this time. The venous sheath was removed and pressure was held to obtain hemostasis. In the neck various muscle and subcutaneous oozing was controlled using Bovie electrocautery. An SCM muslce edge bleed was controlled using a 2-0 silk suture in a figure of 8 fashion. The subcutaneous tissue was closed using a 3-0 Vicryl and the skin was closed using dago. The patient was awoken from general anesthesia and was was able to move all limbs. The patient was taken to the PACU for recovery. Dr. Barnes was present and scrubbed for the entire procedure. I attest to the content of the Intraoperative Record and any orders documented therein. Any exceptions are noted below.
--- NOTE | 2022-01-20 11:22 | Anesthesiology Progress Note ---
Date of Service January 20, 2022 Anesthesia Post Procedure Vital Signs Vital Signs: Temp Pulse Pulse Resp BP BP Pulse Ox 01/20/22 11:00 74 20 119/45 L 113/59 L 96 01/20/22 11:10 36.5 C 73 17 124/47 L 114/59 L 97 01/20/22 10:50 78 20 105/40 L 107/61 91 01/20/22 10:40 78 13 132/50 L 118/64 98 01/20/22 10:30 36.4 C L 82 19 84/36 L 95 01/20/22 06:26 01/20/22 06:26 36.5 C 73 20 112/66 143/79 H 95 O2 Del Method O2 Flow Rate 01/20/22 11:00 Nasal Cannula 3 01/20/22 11:10 Nasal Cannula 3 01/20/22 10:50 Room Air 01/20/22 10:40 Oxymask 5 01/20/22 10:30 Oxymask 5 01/20/22 06:26 Room Air 01/20/22 06:26 Room Air Pain Intensity Left Neck: Pain Intensity: 4 Transfer of Care Handoff Completed per policy Notes Mental Status: alert / awake / arousable Patient Amnestic to Procedure: Yes Nausea / Vomiting: adequately controlled Pain: adequately controlled Airway Patency, RR, SpO2: stable & adequate BP & HR: stable & adequate Hydration State: stable & adequate Anesthetic Complications: no major complications apparent and Pt Satisfied with anesthetic care Notes: on phenylephrine 0.1mcg/kg/min to achieve SBP>100. No complications. Tolerated well.
[2022-01-20] MEDS ORDERED: NITROGLYCERIN SL 0.4 MG/TAB TAB SL PRN (11:39)
[2022-01-20] MEDS ORDERED: CLOBETASOL PROPIONATE 0.05% OINT 15 GM TUBE EXT PRN (11:39)
[2022-01-20] MEDS ORDERED: HYDROCODONE/ACETAMOPHEN 5/325MG TAB PO PRN (11:39)
[2022-01-20] MEDS: LACTATED RINGER'S 1,000 ML IV SCH ×2 (12:27→22:17)
[2022-01-20] MEDS: ACETAMINOPHEN 500 MG TAB PO PRN (12:28)
[2022-01-20] MEDS: ceFAZolin 2000MG 2,000 MG/15 ML SYR IV SCH ×2 (13:34→22:17)
--- NOTE | 2022-01-20 13:35 | Critical Care Consultation ---
Date of Consultation January 20, 2022 Assessment & Plan (1) Status post carotid endarterectomy: ICU Assessment and Plans Reason Critically Ill: 81 yo F admitted to ICU for postoperative monitoring after TCAR procedure for proximal L ICA stenosis Neuro - Sedation: None Analgesia: Acetaminophen/Temple PRN per vascular surgery -Mentating at baseline CARDIAC/VASCULAR - Proximal left ICA stenosis s/p uncomplicated TCAR procedure 01/20 -Pt doing well postoperatively, currently hemodynamically stable and pain- controlled -Neosynephrine 0.2 mcg/kg/min postoperatively, attempt to wean -Asymptomatic intermittent sinus bradycardia 50s-high 40s postoperatively -Likely due to ballooning of carotid sinus during procedure per vascular surgery -Continue monitoring -Hold home Lopressor pending HR -Continue home medications for chronic cardiovascular disease RESPIRATORY - -Currently saturating well on RA, no active pulmonary issues GI - -Clear liquid diet, advance as tolerated RENAL/ELECTROLYTES - -Continue IVF with LR 100cc/hr for now -BMP in AM - -No concerns at present ENDO - -No history of diabetes -Continue home levothyroxine HEME - -CBC in AM ID - -Continue postoperative Ancef per vascular surgery INTEGUMENTARY - -No issues at present LINES/IV ACCESS - -L arterial line -PIV DVT PROPHYLAXIS - -SCDs -Avoiding pharmacologic prophylaxis postoperatively Thank you for allowing us to be part of this patient's care. Please refer to Dr. Perez's documentation for any further recommendations. (2) Ischemic cardiomyopathy: (3) CKD (chronic kidney disease), stage III: (4) Hypothyroidism: (5) HTN (hypertension): Supervising Physician Co-Signing Physician Notes Patient seen and examined. EMR reviewed. Discussed with family practice resident and agree with assessment plan as noted above. Will continue to monitor in the ICU post TCAR. Blood pressure parameters per vascular surgery. Patient's other medical issues have been well addressed by the vascular surgery service. History of Present Illness Reason for Consultation: S/p L TCAR vascular procedure Requesting Physician: Lexx Barnes MD Attending Physician: Lexx Barnes MD History of Present Illness 81 yo F with PMH CAD, HTN, HLD, previous R carotid endarterectomy admitted to ICU for monitoring after elective L transcarotid artery revascularization. Pt recently had outpatient CTA of neck in 11/2021 which demonstrated evolving proximal L ICA stenosis of 70%. She has had worsening hoarseness during this time as well. Pt underwent uncomplicated L TCAR procedure on 01/20 and transferred to ICU for monitoring postoperatively. On evaluation, pt reports dry mouth but denies any chest pain, dyspnea. Does endorse some soreness over her operative site. She notes some new left upper arm numbness and pain. Otherwise without acute complaint. Allergies Allergy/AdvReac Type Severity Reaction Status Date / Time gabapentin Allergy Severe Severe Verified 01/20/22 06:19 diffuse swelling, dyspnea tramadol Allergy Mild Flushing Verified 01/20/22 06:19 codeine AdvReac Severe Hallucinati Verified 01/20/22 06:19 ons morphine AdvReac Intermediate Dyspepsia Verified 01/20/22 06:19 (pt states "she won't take" 01/25/07) oxycodone [From Percocet] AdvReac Mild Nausea Verified 01/20/22 06:19 Home Medications Medication Instructions Recorded Confirmed Type aspirin 81 mg chewable tablet 81 mg PO QAM 11/05/17 01/20/22 History docusate sodium 100 mg tablet 100 mg PO QAM 11/05/17 01/20/22 History nitroglycerin 0.4 mg sublingual 0.4 mg sublingual Q5M PRN chest 11/22/18 12/30/21 History tablet pain acetaminophen 500 mg tablet 1,000 mg PO TID PRN arthritis 02/11/21 01/20/22 History carboxymethylcellulose 1 1 drp ophthalmic (eye) BID 02/11/21 01/20/22 History %-glycerin 0.9 % eye gel drops (Refresh Optive) cholecalciferol (vitamin D3) 25 2,000 unit PO QAM 02/13/21 01/20/22 History mcg (1,000 unit) tablet (Vitamin D3) multivitamin 1 tab PO QAM 02/13/21 01/20/22 History isosorbide mononitrate 60 mg 120 mg PO QAM #180 tabs 02/14/21 01/20/22 Rx tablet,extended release 24 hr Shower Chair #1 ea 05/28/21 10/22/21 Rx metoprolol tartrate 50 mg tablet 50 mg PO BID #180 tabs 06/26/21 01/20/22 Rx pantoprazole 40 mg tablet,delayed 40 mg PO QAM #90 tabs 07/29/21 01/20/22 Rx release furosemide 40 mg tablet 40 mg PO QAM #90 tabs 08/20/21 01/20/22 Rx vit C 226 mg-vit E 90 mg-copper 1 cap PO BID 10/22/21 01/20/22 History 0.8 mg-zinc oxide-lutein 5 mg capsule (PreserVision Lutein) folic acid 1 mg tablet 2 mg PO QAM #180 tabs 10/28/21 01/20/22 Rx levothyroxine 75 mcg tablet 75 mcg PO QAM #90 tabs 10/29/21 01/20/22 Rx walker (Ultra-Light Rollator misc) #1 ea 12/03/21 Rx clopidogrel 75 mg tablet (Plavix) 75 mg PO DAILY 01/05/22 01/20/22 History atorvastatin 80 mg tablet 80 mg PO QPM #90 tabs 01/06/22 Rx clobetasol 0.05 % topical ointment 1 applic topical BID PRN Rash, 01/06/22 Rx HANDS AND FEET #60 grams ticagrelor 90 mg tablet (Brilinta) 90 mg PO DAILY 01/20/22 01/20/22 History Patient History Medical History Carotid stenosis, bilateral s/p right carotid endarterectomy (2008), redo R CEA 04/2021 High-grade stenosis at the origin of the left external carotid artery per 11/2021 Neck CTA CKD (chronic kidney disease), stage III Coronary artery disease 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 [place] [facility] [place]gastroesophageal reflux disease) History of basal cell carcinoma (BCC) of skin s/p excision History of W[place] (myocardial infarction) STEMI (2006), 2 other "mild" WV's Hoarseness R/t nerve damage with redo right carotid endarterectomy (04/2021) per pt HTN (hypertension) Controlled with meds Hx of vertigo Hyperlipidemia Hypothyroidism Ischemic cardiomyopathy Macular degeneration "Early stages" Osteoarthritis Psoriatic arthritis Rheumatoid arthritis Previously on MTX (discontinued) Toes, fingers, hips, knees, shoulders affected. Denies neck issues. Right ovarian cyst Under surveillance Spinal stenosis Surgical History History of anesthesia reaction "Slow to wake" History of cardiac cath Multiple (2019- medical management recommended) History of carpal tunnel release of both wrists History of colonoscopy History of decompression of ulnar nerve Right History of right-sided carotid endarterectomy 2009 > Redo Right CEA (05/21/21): Grade 2 view, MAC#3, ETT 7.5 at [facility]. No issues noted per post-op anesthesia progress note. History of total right knee replacement Hx of cataract surgery R/L S/P tonsillectomy S/P tubal ligation Status post insertion of drug-eluting stent into left anterior descending (LAD) artery 2006 ([facility]) Status post left knee replacement Family History Mother Diabetes Myocardial infarction Osteoarthritis Breast cancer Lung cancer Stroke Daughter Diabetes Hypertension Father No problems noted. Other COPD (chronic obstructive pulmonary disease) Heart disease No family history of adverse response to anesthesia Denies family history of Ovarian cancer Prostate cancer Colorectal cancer Social History Smoking Status: Never smoker Second Hand Exposure: No; Do You Dip or Chew Tobacco: No; Hx Alcohol Use: No Hx Substance Use: No Preferred Language: Upper Sorbian Communication Ability: Effective Visual Impairment: Limited Hearing Ability: Normal Death Claim Clerk Required: No Beliefs That Will Affect Care: None marital status: Current Living Situation: Spouse Current Living Situation Comment: Lives with in [facility] apartment ([facility]) current occupational status: retired How many Children do You have: 4 How many Children do You have Comment: 3 living children (2 daughter, 1 son); lost 1 son Feels Safe at Home: Yes Safety Concerns: Feels Safe At This Time Childhood Exposure to Second-Hand Smoke: Yes caffeine: Yes (Coffee 2 cups per day.) during the past year weight has: remained stable Dental Care, Regularly: No Physical Activity Frequency: Does not Exercise Seatbelt Use: always Sunscreen Use: Yes Assistive Devices: Denture - Upper, Denture - Lower, Glasses and Walker Review of Systems Review of Systems: Per HPI Physical Exam Physical Exam: GENERAL - Appears stated age, no acute distress. Communicating with provider and answering questions appropriately. SKIN - No rashes. Dressing over surgical site intact without active bleeding, drainage. Mild tenderness over incision site at L clavicle HEAD - NC/AT. EYES - Anicteric sclerae. EARS - No deformities of external structures b/l NOSE - Midline. No epistaxis or purulent drainage. Septum midline without d eviation. MOUTH/OROPHARYNX - No perioral cyanosis. Buccal mucosa pink and moist. NECK - supple, FROM, no anterior/posterior cervical lymphadenopathy, no thyromegaly, no nuchal rigidity. LUNGS - CTAB, unlabored respirations. No wheezes, rales, or rhonchi appreciated. CARDIAC - RRR with S1/S2. No murmurs appreciated ABDOMEN - Soft, nontender, nondistended. No guarding or rebound. No hepatosplenomegaly or ascites. EXTREMITIES - No clubbing or peripheral cyanosis. No peripheral edema present. Radial and dorsalis pedis pulses intact b/l NEUROLOGIC - AOx3, no focal motor deficits. Sensation intact to light touch throughout. Moves all extremities. Results & Data Results & Data ([facility]) Vital Signs (Past 12 Hours) Vital Signs Temp Pulse Pulse Pulse Resp BP BP 01/20/22 12:45 51 L 18 103/47 L 01/20/22 12:30 56 L 21 01/20/22 12:23 65 19 115/54 L 01/20/22 12:54 36.5 C 01/20/22 12:16 52 L 15 88/51 L 01/20/22 12:15 55 L 17 01/20/22 12:12 48 L 20 93/49 L 01/20/22 12:00 74 21 93/55 L 01/20/22 11:50 70 15 96/52 L 01/20/22 11:45 65 20 01/20/22 11:00 74 20 119/45 L 01/20/22 11:30 70 19 118/44 L 01/20/22 11:20 69 13 121/47 L 01/20/22 11:10 36.5 C 73 17 124/47 L 01/20/22 10:50 78 20 105/40 L 01/20/22 10:40 78 13 132/50 L 01/20/22 10:30 36.4 C L 82 19 84/36 L 01/20/22 06:26 01/20/22 06:26 36.5 C 73 20 112/66 BP Pulse Ox O2 Del Method O2 Flow Rate 01/20/22 12:45 98 Room Air 01/20/22 12:30 98 Room Air 01/20/22 12:23 98 Room Air 01/20/22 12:54 01/20/22 12:16 100 Room Air 01/20/22 12:15 100 Room Air 01/20/22 12:12 100 Room Air 01/20/22 12:00 96 Room Air 01/20/22 11:50 95 Room Air 01/20/22 11:45 96 Room Air 01/20/22 11:00 113/59 L 96 Nasal Cannula 3 01/20/22 11:30 110/61 98 Nasal Cannula 3 01/20/22 11:20 112/58 L 98 Nasal Cannula 3 01/20/22 11:10 114/59 L 97 Nasal Cannula 3 01/20/22 10:50 107/61 91 Room Air 01/20/22 10:40 118/64 98 Oxymask 5 01/20/22 10:30 95 Oxymask 5 01/20/22 06:26 Room Air 01/20/22 06:26 143/79 H 95 Room Air Resident Activity Tracking Resident Involvement: Resident Care Provided Care Provided: Adult Hospital Medicine (1) Hypothyroidism Hypothyroidism type: acquired Qualified Code(s): E03.9 - Hypothyroidism, unspecified
--- NOTE | 2022-01-20 16:25 | Billing Data ---
Date of Service January 20, 2022 Coding Level of Care Code 88079 Initial Inpt Care Lvl 3
[2022-01-20] MEDS ORDERED: ATORVASTATIN 40 MG TAB PO SCH (21:00)
[2022-01-20] MEDS ORDERED: TICAGRELOR 90 MG TAB PO SCH (21:00)
[2022-01-20] MEDS: ARTIFICIAL TEARS OP SCH (21:02)
[2022-01-20] MEDS: METOPROLOL TARTRATE 50 MG TAB PO SCH (21:03)
[2022-01-21] MEDS ORDERED: LEVOTHYROXINE SODIUM 75 MCG TABLET PO SCH (06:30)
--- NOTE | 2022-01-21 07:18 | Critical Care Progress Note ---
Date of Service January 21, 2022 Assessment & Plan (1) Status post carotid endarterectomy: Plan: ICU Assessment and Plans Reason Critically Ill: 81 yo F admitted to ICU for postoperative monitoring after TCAR procedure for proximal L ICA stenosis Neuro - Sedation: None Analgesia: Acetaminophen/Tomah PRN per vascular surgery -Mentating at baseline CARDIAC/VASCULAR - Proximal left ICA stenosis s/p uncomplicated TCAR procedure 01/20 -Pt doing well postoperatively, currently hemodynamically stable and pain- controlled -Neosynephrine weaned off overnight 01/21 -Asymptomatic intermittent sinus bradycardia 50s-high 40s postoperatively -Likely due to ballooning of carotid sinus during procedure per vascular surgery -Improving, continue monitoring -Hold home Lopressor pending HR -Continue home medications for chronic cardiovascular disease RESPIRATORY - -Currently saturating well on RA, no active pulmonary issues GI - -Clear liquid diet, advance as tolerated RENAL/ELECTROLYTES - -Discontinue IV fluids -BMP unremarkable - -No concerns at present ENDO - -No history of diabetes -Continue home levothyroxine HEME - -Hgb stable ID - -Postoperative Ancef completed 01/20 INTEGUMENTARY - -No issues at present LINES/IV ACCESS - -L arterial line, will be removed today -PIV DVT PROPHYLAXIS - -SCDs -Avoiding pharmacologic prophylaxis postoperatively Pt stable for downgrade from ICU. (2) Ischemic cardiomyopathy: (3) CKD (chronic kidney disease), stage III: (4) Hypothyroidism: (5) HTN (hypertension): Admission and Anticipated Discharge Date Admission Date: January 20, 2022 Supervising Physician Co-Signing Physician Notes Patient seen and examined. EMR reviewed. Discussed with critical care nurse at bedside as well as with family practice resident. Agree with assessment plan as noted. Patient's blood pressures been well controlled. We will discontinue arterial line. She is at bed to chair and tolerating a diet. Continue antihypertensives. Pain control is adequate. Her critical care issues appear resolved. Critical care services will sign off. Will defer ultimate disposition to vascular surgery. Please feel free to contact us if we can be of additional assistance. Subjective No acute events overnight. Neosynephrine weaned off at 0430 Pt did get OOB to chair and briefly ambulated the previous evening. She reports her throat pain has improved, denies any acute complaints today. Review of Systems Review of Systems: Per HPI Physical Exam Physical Exam: GENERAL - Appears stated age, no acute distress. Communicating with provider and answering questions appropriately. SKIN - Dressing over surgical site intact without active bleeding, drainage. Mild tenderness over incision site at L clavicle HEAD - NC/AT. EYES - Anicteric sclerae. EARS - No deformities of external structures b/l NOSE - Midline. No epistaxis or purulent drainage. Septum midline without deviation. MOUTH/OROPHARYNX - No perioral cyanosis. Buccal mucosa pink and moist. NECK - supple, FROM, no anterior/posterior cervical lymphadenopathy, no thy romegaly, no nuchal rigidity. LUNGS - CTAB, unlabored respirations. No wheezes, rales, or rhonchi appreciated. CARDIAC - RRR with S1/S2. No murmurs appreciated ABDOMEN - Soft, nontender, nondistended. No guarding or rebound. No hepatosplenomegaly or ascites. EXTREMITIES - No clubbing or peripheral cyanosis. No peripheral edema present. Radial and dorsalis pedis pulses intact b/l NEUROLOGIC - AOx3, no focal motor deficits. Sensation intact to light touch throughout. Moves all extremities. Results & Data Results & Data ([facility]) Vital Signs (Past 12 Hours) Vital Signs Temp Pulse Resp BP Pulse Ox O2 Del Method 01/21/22 06:00 80 12 92 01/21/22 06:00 103/54 L 01/21/22 05:51 114/63 01/21/22 05:51 56 L 15 96 01/21/22 05:30 71 17 93 01/21/22 05:15 73 19 93 01/21/22 05:00 71 17 95 01/21/22 04:45 64 19 95 01/21/22 04:30 78 20 94 01/21/22 04:15 17 95 01/21/22 04:00 75 17 97 01/21/22 04:00 97/47 L 01/21/22 03:45 76 15 95 01/21/22 03:30 77 22 93 01/21/22 03:15 50 L 17 96 01/21/22 03:00 73 16 94 01/21/22 03:00 111/58 L 01/21/22 02:45 53 L 15 94 01/21/22 02:30 53 L 14 95 01/21/22 03:00 37.1 C 01/21/22 02:15 54 L 16 95 01/21/22 02:01 96/41 L 01/21/22 02:01 57 L 16 94 01/21/22 02:00 50 L 14 94 01/21/22 01:45 48 L 13 95 01/21/22 01:30 53 L 15 93 01/21/22 01:15 54 L 20 95 01/21/22 01:01 52 L 15 95 01/21/22 01:01 122/43 L 01/21/22 01:00 52 L 15 94 01/21/22 00:45 49 L 16 94 01/21/22 00:30 46 L 15 94 01/21/22 00:15 49 L 16 95 01/21/22 00:00 54 L 19 96 01/21/22 00:00 116/46 L 01/20/22 23:45 53 L 15 95 01/20/22 23:30 53 L 16 96 01/20/22 23:15 49 L 15 96 01/20/22 23:00 65 20 90 01/20/22 23:00 108/50 L 01/21/22 00:00 52 L 01/20/22 22:45 47 L 18 94 01/20/22 22:44 51 L 21 94 01/20/22 22:44 118/48 L 01/20/22 22:34 59 L 18 01/20/22 22:16 55 L 15 97 01/20/22 22:16 120/44 L 01/20/22 22:15 49 L 16 97 01/20/22 22:00 50 L 16 97 01/20/22 22:00 121/52 L 01/20/22 21:45 51 L 17 92 01/20/22 21:45 117/60 01/20/22 21:30 52 L 16 94 01/20/22 21:30 120/51 L 01/20/22 21:15 48 L 17 92 01/20/22 21:15 127/53 L 01/20/22 21:00 45 L 20 94 01/20/22 21:00 116/43 L 01/20/22 20:46 51 L 15 94 01/20/22 20:46 120/52 L 01/20/22 20:45 51 L 17 93 01/20/22 20:30 51 L 15 96 01/20/22 20:30 125/53 L 01/20/22 20:15 50 L 14 94 01/20/22 20:15 120/46 L 01/20/22 23:00 36.9 C 01/20/22 20:00 Room Air 01/20/22 20:00 51 L 14 94 01/20/22 19:45 50 L 16 96 01/20/22 19:45 122/56 L 01/20/22 19:30 61 19 97 01/20/22 19:30 36.4 C L Critical Care Results & Data Vital Signs (Past 12 Hours) Vital Signs Temp Pulse Resp BP Pulse Ox O2 Del Method 01/21/22 09:00 66 18 94 01/21/22 09:00 121/54 L 01/21/22 08:52 94/79 L 01/21/22 08:52 62 16 95 01/21/22 08:01 75 15 98 01/21/22 08:01 122/48 L 01/21/22 08:00 73 13 98 01/21/22 07:50 58 L 21 98 01/21/22 07:50 107/49 L 01/21/22 07:00 53 L 16 93 01/21/22 07:00 112/50 L 01/21/22 07:30 Room Air 01/21/22 07:00 75 01/21/22 07:00 36.6 C 01/21/22 06:00 80 12 92 01/21/22 06:00 103/54 L 01/21/22 05:51 114/63 01/21/22 05:51 56 L 15 96 01/21/22 05:30 71 17 93 01/21/22 05:15 73 19 93 01/21/22 05:00 71 17 95 01/21/22 04:45 64 19 95 01/21/22 04:30 78 20 94 01/21/22 04:15 17 95 01/21/22 04:00 75 17 97 01/21/22 04:00 97/47 L 01/21/22 03:45 76 15 95 01/21/22 03:30 77 22 93 01/21/22 03:15 50 L 17 96 01/21/22 03:00 73 16 94 01/21/22 03:00 111/58 L 01/21/22 02:45 53 L 15 94 01/21/22 02:30 53 L 14 95 01/21/22 03:00 37.1 C 01/21/22 02:15 54 L 16 95 01/21/22 02:01 96/41 L 01/21/22 02:01 57 L 16 94 01/21/22 02:00 50 L 14 94 01/21/22 01:45 48 L 13 95 01/21/22 01:30 53 L 15 93 01/21/22 01:15 54 L 20 95 01/21/22 01:01 52 L 15 95 01/21/22 01:01 122/43 L 01/21/22 01:00 52 L 15 94 01/21/22 00:45 49 L 16 94 01/21/22 00:30 46 L 15 94 01/21/22 00:15 49 L 16 95 01/21/22 00:00 54 L 19 96 01/21/22 00:00 116/46 L 01/20/22 23:45 53 L 15 95 01/20/22 23:30 53 L 16 96 01/20/22 23:15 49 L 15 96 01/20/22 23:00 65 20 90 01/20/22 23:00 108/50 L 01/21/22 00:00 52 L 01/20/22 22:45 47 L 18 94 01/20/22 22:44 51 L 21 94 01/20/22 22:44 118/48 L 01/20/22 22:34 59 L 18 01/20/22 22:16 55 L 15 97 01/20/22 22:16 120/44 L 01/20/22 22:15 49 L 16 97 01/20/22 22:00 50 L 16 97 01/20/22 22:00 121/52 L 01/20/22 21:45 51 L 17 92 01/20/22 21:45 117/60 01/20/22 21:30 52 L 16 94 01/20/22 21:30 120/51 L 01/20/22 21:15 48 L 17 92 01/20/22 21:15 127/53 L 01/20/22 23:00 36.9 C Lab & Micro Results (Past 24 Hours) RBC 3.01 M/uL (3.93-5.22) L 01/21/22 WBC 5.35 K/ul (4.8-10.8) 01/21/22 Hgb 9.8 g/dl (12.0-16.0) L 01/21/22 Hct 29.5 % (34.1-44.9) L 01/21/22 MCV 98.0 fL (80.0-100.0) 01/21/22 MCH 32.6 pg (25.0-34.0) 01/21/22 MCHC 33.2 g/dL (32.0-36.0) 01/21/22 RDW Standard Deviation 52.6 fL (36.4-46.3) H 01/21/22 RDW Coefficient of Variation 14.7 % (11.5-14.5) H 01/21/22 Plt Count 174 K/uL (130-400) 01/21/22 MPV 8.8 fL (9.4-12.3) L 01/21/22 Na 139 mmol/L (136-145) 01/21/22 K 3.6 mmol/L (3.5-5.1) 01/21/22 Cl 105 mmol/L (98-107) 01/21/22 CO2 27 mmol/L (21-32) 01/21/22 Anion Gap 7 (3-11) 01/21/22 BUN 11 mg/dl (6-23) 01/21/22 Creatinine 1.12 mg/dl (0.6-1.2) 01/21/22 Estimated GFR ( Amer) 53.7 ml/min 01/21/22 Estimated GFR (Non-Af Amer) 46.4 ml/min 01/21/22 BUN/Creatinine Ratio 9.8 (10-20) L 01/21/22 Glu 106 mg/dl (70-99(Fasting)) H 01/21/22 Ca 8.7 mg/dl (8.5-10.1) 01/21/22 Calcium Level 8.7 mg/dl (8.5-10.1) 01/21/22 07:40 I & O Totals 24 Hours 01/20/22 01/21/22 01/22/22 06:59 06:59 06:59 Intake Total 3868.871 / 3868.871 1500 / 1500 Output Total 850 / 850 Balance 3018.871 / 3018.871 1500 / 1500 Cumulative 12/30/21 07:54 thru 01/21/22 08:00 Intake Total 5368.871 Output Total 850 Balance 4518.871 RT Ventilator Mngmt (Last Documented) Ventilator Ordered Settings Respiratory Rate 18 01/21/22 09:00 Ventilator - PT Measurements Respiratory Rate 18 Resident Activity Tracking Resident Involvement: Resident Care Provided Care Provided: Adult Hospital Medicine (1) Hypothyroidism Hypothyroidism type: acquired Qualified Code(s): E03.9 - Hypothyroidism, unspecified
[2022-01-21] MEDS: LACTATED RINGER'S 1,000 ML IV SCH (07:31)
[2022-01-21 07:57] LABS: Hematocrit (blood only) 29.5 % (34.1-44.9); Hemoglobin 9.8 g/dl (12.0-16.0); Mean Corpuscular Hemoglobin 32.6 pg (25.0-34.0); Mean Corpuscular Hgb Conc 33.2 g/dL (32.0-36.0); Mean Platelet Volume 8.8 fL (9.4-12.3); Platelet Count 174 K/uL (130-400); RDW Coefficient of Variation 14.7 % (11.5-14.5); RDW Standard Deviation 52.6 fL (36.4-46.3); Red Blood Count 3.01 M/uL (3.93-5.22); White Blood Count 5.35 K/ul (4.8-10.8)
[2022-01-21 08:17] LABS: BUN Creatinine Ratio 9.8 (10-20); Calcium 8.7 mg/dl (8.5-10.1); Creatinine Clr Calc Pharmacy 47.4 ml/min; Est GFR (African American) 53.7 ml/min; Est GFR (Non-African American) 46.4 ml/min; Potassium 3.6 mmol/L (3.5-5.1)
[2022-01-21] MEDS ORDERED: FUROSEMIDE 40 MG TAB PO SCH (09:00)
[2022-01-21] MEDS ORDERED: ISOSORBIDE MONO EXTENDED REL 60 MG TABCR PO SCH (09:00)
[2022-01-21] MEDS ORDERED: MULTIVITAMIN TAB PO SCH (09:00)
[2022-01-21] MEDS ORDERED: CHOLECALCIFEROL 1,000 UNITS 25 MCG TAB PO SCH (09:00)
[2022-01-21] MEDS ORDERED: TICAGRELOR 90 MG TAB PO SCH ×2 (09:00)
[2022-01-21] MEDS ORDERED: ASPIRIN 81 MG CHEW PO SCH (09:00)
[2022-01-21] MEDS ORDERED: CEROVITE ADV FORMULA TAB PO SCH (09:00)
[2022-01-21] MEDS ORDERED: FOLIC ACID 1 MG TAB PO SCH (09:00)
[2022-01-21] MEDS ORDERED: DOCUSATE SODIUM 100 MG CAP PO SCH (09:00)
[2022-01-21] MEDS ORDERED: PANTOprazole 40 MG TAB PO SCH (09:00)
[2022-01-21] MEDS: ARTIFICIAL TEARS OP SCH (09:04)
[2022-01-21] MEDS: ACETAMINOPHEN 500 MG TAB PO PRN (09:04)
[2022-01-21] MEDS: METOPROLOL TARTRATE 50 MG TAB PO SCH (09:06)
--- NOTE | 2022-01-21 09:10 | Surgery Progress Note ---
Date of Service January 21, 2022 Assessment & Plan (1) Presence of internal carotid stent: Plan: POD #1 after L TCAR, pt doing well post op. ALso seen by Dr Barnes today. WIll d/c home today. Admission and Anticipated Discharge Date Admission Date: January 20, 2022 Subjective 81 yo f POD #1 after L TCAR procedure, seen in f/u today. Mil-synephrine d/c, pt maintaining BP and HR. Pt admits some discomfort in L neck incision, but otherwise states feeling well. Review of Systems Review of Systems: All systems reviewed & are unremarkable except as noted in HPI & below Physical Exam Constitutional: WD/WN, vitals as above Neck: trachea midline L neck supraclavicular incision C/D/I with dago. +local superficial ecchymosis and tenderness. Respiratory: normal respiratory effort, lungs clear to auscultation Auscultation: + diminished lung sounds Cardiovascular: Rate/Rhythm: regular rate and regular rhythm Vessels: radial pulses present Extremities: normal capillary refill Gastrointestinal (Abdomen): Inspection/Auscultation: abdomen normal to inspection Percussion/Palpation: abdomen nontender Musculoskeletal: no cyanosis or clubbing, extremities motor strength 5/5 Skin: no rashes, warm and dry Neurologic: moves all extremities and awake; no focal motor deficits and not confused Psychiatric: A+Ox3, euthymic affect Results & Data ([facility]) Vital Signs (Past 12 Hours) Vital Signs Temp Pulse Resp BP Pulse Ox O2 Del Method 01/21/22 07:50 58 L 21 98 01/21/22 07:50 107/49 L 01/21/22 07:00 53 L 16 93 01/21/22 07:00 112/50 L 01/21/22 07:30 Room Air 01/21/22 07:00 75 01/21/22 07:00 36.6 C 01/21/22 06:00 80 12 92 01/21/22 06:00 103/54 L 01/21/22 05:51 114/63 01/21/22 05:51 56 L 15 96 01/21/22 05:30 71 17 93 01/21/22 05:15 73 19 93 01/21/22 05:00 71 17 95 01/21/22 04:45 64 19 95 01/21/22 04:30 78 20 94 01/21/22 04:15 17 95 01/21/22 04:00 75 17 97 01/21/22 04:00 97/47 L 01/21/22 03:45 76 15 95 01/21/22 03:30 77 22 93 01/21/22 03:15 50 L 17 96 01/21/22 03:00 73 16 94 01/21/22 03:00 111/58 L 01/21/22 02:45 53 L 15 94 01/21/22 02:30 53 L 14 95 01/21/22 03:00 37.1 C 01/21/22 02:15 54 L 16 95 01/21/22 02:01 96/41 L 01/21/22 02:01 57 L 16 94 01/21/22 02:00 50 L 14 94 01/21/22 01:45 48 L 13 95 01/21/22 01:30 53 L 15 93 01/21/22 01:15 54 L 20 95 01/21/22 01:01 52 L 15 95 01/21/22 01:01 122/43 L 01/21/22 01:00 52 L 15 94 01/21/22 00:45 49 L 16 94 01/21/22 00:30 46 L 15 94 01/21/22 00:15 49 L 16 95 01/21/22 00:00 54 L 19 96 01/21/22 00:00 116/46 L 01/20/22 23:45 53 L 15 95 01/20/22 23:30 53 L 16 96 01/20/22 23:15 49 L 15 96 01/20/22 23:00 65 20 90 01/20/22 23:00 108/50 L 01/21/22 00:00 52 L 01/20/22 22:45 47 L 18 94 01/20/22 22:44 51 L 21 94 01/20/22 22:44 118/48 L 01/20/22 22:34 59 L 18 01/20/22 22:16 55 L 15 97 01/20/22 22:16 120/44 L 01/20/22 22:15 49 L 16 97 01/20/22 22:00 50 L 16 97 01/20/22 22:00 121/52 L 01/20/22 21:45 51 L 17 92 01/20/22 21:45 117/60 01/20/22 21:30 52 L 16 94 01/20/22 21:30 120/51 L 01/20/22 21:15 48 L 17 92 01/20/22 21:15 127/53 L 01/20/22 23:00 36.9 C
--- NOTE | 2022-01-21 09:11 | Discharge Summary ---
Date of Service January 21, 2022 Admission HPI Per Admitting Provider History of Present Illness I the pleasure of seeing Latrice today for follow-up after her CT angio of her carotids. As you know she is an 81-year-old female who underwent a right carotid and a redo right carotid endarterectomy in the past. She now has developed significant narrowing of her left internal carotid artery. She is here for CT results and to talk about treatment options. Physical Exam Vitals & Measurements HR: 90 (Monitored) BP: 108/68 SpO2: 95% Input and Output - Last 24 hours (Last 8 hours) No I/O Data Found: On exam she is awake alert and oriented x3. She is in no apparent distress. Her blood pressure is 108/68. Neurologic exam is intact to motor and sensory function. CT scan showed significant narrowing of her left internal carotid artery with calcified plaque. Assessment/Plan 1. Occlusion and stenosis of bilateral carotid arteries At this point her options that were recommended is either carotid endarterectomy or TCAR procedure. She does not entirely meet the criteria for TCAR being that her distance between her clavicle and carotid lesion is slightly less than 5 cm and also there is 1 short area of the carotid plaque which is circumferential however its been on the 1 side. In view of this I would still recommend the TCAR being that she did have problems with hoarseness and a temporary period of difficulty swallowing after her last endarterectomy. The hoarseness still persist today to a certain degree. If an endarterectomy was performed there is a chance that we can make the hoarseness worse and she could not be left with a weakly audible voice. She understood these risks and agreed to go ahead with the TCAR procedure if at all possible. We will send the films to the TCAR company for sizing and evaluation if she is a candidate or not. Even though she is not an ideal candidate I think a TCAR could be done without too much difficulty preserving her cranial nerves. We will keep you informed as to our decision on her follow-up. Sincerely, Yanni Knox MD Problem List/Past Medical History Ongoing AK (actinic keratosis) Arthritis Asymptomatic carotid artery stenosis BCC (basal cell carcinoma of skin) Chronic kidney disease stage 3 Coronary arteriosclerosis Coronary atherosclerosis Degenerative joint disease involving multiple joints Family history of malignant melanoma Gastroesophageal reflux disease Hypercholesterolemia Hyperlipidemia Hypertensive disorder Hypothyroidism Myocardial infarction Psoriasis Reflux Rheumatoid arthritis of multiple joints S/P carotid endarterectomy SK (seborrheic keratosis) Historical No qualifying data Procedure/Surgical History Right redo CEA (05/21/2021) Shave biopsy of skin (04/27/2016) Cardiac catheterization (07/2014) Shave biopsy of skin (02/14/2013) CEA - Carotid endarterectomy Right (05/05/2008) CABG x 1 - Coronary artery bypass graft x 1 Carpal tunnel Cataract Knee replacement Surgery Medications Inpatient No active inpatient medications Home aspirin, 81 mg, PO, Daily betamethasone dipropionate, augmented 0.05% topical cream, See Instructions, 1 refills Colace 100 mg oral capsule, 100 mg= 1 cap, PO, Daily, PRN folic acid 1 mg oral tablet, 1 mg= 1 tab, PO, Daily hydrocortisone 2.5% topical cream, 1 appl, topical, bid, 2 refills isosorbide mononitrate 60 mg oral tablet, extended release, 120 mg= 2 tab, PO, qAM Lasix 40 mg oral tablet, 40 mg= 1 tab, PO, Daily Lipitor, 80 mg, PO, qhs metoprolol, 50 mg, PO, bid multivitamin, 1 tab, PO, Daily nitroglycerin 0.4 mg sublingual tablet, 0.4 mg= 1 tab, SL, q5min, PRN pantoprazole 40 mg oral delayed release tablet, 40 mg= 1 tab, PO, Daily Plavix 75 mg oral tablet, 75 mg= 1 tab, PO, Daily, 11 refills PreserVision AREDS 2 Synthroid, 75 mcg, PO, Daily Tylenol Extra Strength 500 mg oral tablet, 1000 mg= 2 tab, PO, bid Allergies codeine (nausea, hallucinations,skin sensations) gabapentin (lightheaded, nausea, legs swelling) morphine (nausea, hallucinations, skin sensations) oxyCODONE (Nausea) traMADol (flushing) Social History Smoking Status Never smoked cigarettes Signature Line Electronic Signature on File Lexx nKox MD Author Signature Dt/Tm: 12/29/2021 04:18 PM County Adviser Honorio Gonzalez [facility] [place]-[address], [address] [place] [address] KONSTANTIN Result Type: .Outpt Ltr Date of Service: December 29, 2021 16:17 EDT Authorization Status: Final Subject: Consult Note Author or Import Date: MD Knox Eugene J on December 29, 2021 16:18 EDT Verified By: MD Knox Eugene J on December 29, 2021 16:18 EDT Encounter info: [id number], [place] [id number], Clinic, 12/29/2021 - 12/29/2021 Admission Exam Per Admitting Provider On exam she is awake alert and oriented x3. She is in no apparent distress. Her blood pressure is 108/68. Neurologic exam is intact to motor and sensory function. CT scan showed significant narrowing of her left internal carotid artery with calcified plaque. Principal Diagnosis 1. s/p L TCAR 2. LICA stenosis Discharge Exam Constitutional WD/WN, vitals as above Neck trachea midline Respiratory normal respiratory effort, lungs clear to auscultation Auscultation: + diminished lung sounds Cardiovascular Rate/Rhythm: regular rate and regular rhythm Vessels: radial pulses present Extremities: normal capillary refill Gastrointestinal (Abdomen) Inspection/Auscultation: abdomen normal to inspection Percussion/Palpation: abdomen nontender Musculoskeletal no cyanosis or clubbing, extremities motor strength 5/5 Skin no rashes, warm and dry Neurologic moves all extremities and awake; no focal motor deficits and not confused Psychiatric A+Ox3, euthymic affect Discharge Data Allergies Allergy/AdvReac Type Severity Reaction Status Date / Time gabapentin Allergy Severe Severe Verified 01/20/22 06:19 diffuse swelling, dyspnea tramadol Allergy Mild Flushing Verified 01/20/22 06:19 codeine AdvReac Severe Hallucinati Verified 01/20/22 06:19 ons morphine AdvReac Intermediate Dyspepsia Verified 01/20/22 06:19 (pt states "she won't take" 01/25/07) oxycodone [From Percocet] AdvReac Mild Nausea Verified 01/20/22 06:19 Consultations 01/20/22 11:39 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 ALso seen by Dr Knox today. WIll d/c home today. Total Time Total Time Spent Total Time Spent (In Minutes): 0 Discharge Plan Discharge Items Patient Disposition: Home - Self-Care Reason For Visit: Left Internal Carotid Artery Stenosis Discharge Diagnosis: 1. s/p Left Transcarotid Artery Revascularization (TCAR) 2. L ICA stenosis Activity: Per Instructions section Non-emergency contact: Primary Care Provider and Surgeon Call non-emergency contact if: you have any medication questions, your pain is not controlled, your pain is concerning for you, you have a fever, your wound has increased redness and your wound has increased drainage Follow-up/Referrals: Gennaro Cedeno CRNP [Primary Care Provider] - (Follow up with PCP within 2 weeks) Lexx Knox MD [Physician] - (Follow up with Dr Knox or Nancy Calero PA-C in 2 weeks. ) Diet: Heart Healthy Addtl Attending Provider Instructions: SPECIAL CARE INSTRUCTIONS: Medications: * CONTINUE YOUR ASPIRIN, BRILINTA,, and ATORVASTATIN MEDICATIONS. DO NOT STOP THESE MEDICATIONS WITHOUT SPEAKING TO DR KNOX'S OFFICE. Incision Care: * You may shower, but do not rub incision. You may let the warm soapy water run over it. Be sure to dry the incision well after bathing. * Do not shave directly over the incision until it is healed. * DO NOT IMMERSE THE INCISION IN A TUB/POOL/etc. UNTIL HEALED. Restrictions: * Do not drive for at least one week or if you are still taking any narcotic pain medication. * Do not lift anything heavier than a gallon of milk for one week after going home. Possible Complications: * Numbness - It is normal to have some numbness around the incision. Numbness can extend beyond the incision to areas of the neck, ear and face. The numbness is due to bruising of nerves during the surgery and will gradually improve over a period of months. * Hoarseness/Difficulty Speaking and Swallowing - The bruising of nerves in the neck can also cause a hoarse voice, difficulty speaking or swallowing. This may improve over time, HOWEVER, if it continues for more than a few days please contact our office ([phone]). * Excessive Swelling - There will be some swelling immediately after surgery which usually resolves within one week. If you notice that the swelling is getting worse, notify your surgeon ([phone]). * Drainage/Bleeding - If there is any drainage or bleeding, it should be a very small amount (less than a teaspoon per day). If you have excessive bleeding or drainage from the incision, call your surgeon ([phone]) right away. ACTIVATION OF EMERGENCY MEDICAL SYSTEM: Call 911, immediately, if you experience any of the following: Warning Signs and Symptoms of Stroke: * Sudden numbness or weakness of the face, arm or leg, especially on one side of the body * Sudden confusion, trouble speaking or understanding * Sudden trouble seeing in one or both eyes * Sudden trouble walking, dizziness, loss of balance or coordination * Sudden severe headache with no cause Do not delay calling 911 if you experience any warning signs or symptoms of a stroke. Delay in seeking medical attention may affect what treatments can be given to you. Risk Factors for Stroke: You can reduce your chances of stroke by working with your medical provider to adopt a healthy lifestyle. Some specific ways to lower your chance of stroke are: * If you are a smoker, now is the time to stop smoking cigarettes * If you are diabetic, improve the control of your blood sugars * Avoid excessive amounts of alcohol * Control high blood pressure * Lose weight if you are overweight * Be sure to lead an active lifestyle * Eat a healthy diet low in salt, cholesterol and fat You should know about other risk factors for stroke that you are unable to control. These include: * Age 55 years or older * Male gender * Certain racial groups: , or / * Family History of Stroke, Mini stroke or Heart Attack * Sickle Cell Disease You will be receiving a call from the Vascular Surgery Nurse after you are discharged. FOLLOW UP VISIT: It is important for you to keep your follow up appointments with your medical provider. Keep any scheduled doctor appointments. Pending Studies at Discharge: No Stand-Alone Forms: My [facility] [employer] App Store, Smoking Cessation Medications and DC Order Prescriptions: New Brilinta 90 mg Tablet 90 mg PO BID Qty: 60 11RF Continued metoprolol tartrate 50 mg tablet 50 mg PO BID Qty: 180 3RF pantoprazole 40 mg tablet,delayed release (DR/EC) 40 mg PO QAM Qty: 90 1RF furosemide 40 mg tablet 40 mg PO QAM Qty: 90 1RF folic acid 1 mg tablet 2 mg PO QAM Qty: 180 3RF levothyroxine 75 mcg tablet 75 mcg PO QAM Qty: 90 1RF (DME) Ultra-Light Rollator Misc See Rx Instructions .Route Qty: 1 0RF Rx Instructions: Rolling 4 wheeled walker with seat / break. atorvastatin 80 mg tablet 80 mg PO QPM Qty: 90 3RF clobetasol 0.05 % ointment 1 applic TOP BID PRN (Reason: Rash, HANDS AND FEET) Qty: 60 3RF PreserVision Lutein 226-90-0.8-5 mg capsule 1 cap PO BID Refresh Optive 1-0.9 % drops,gel 1 drp ophthalmic (eye) BID Label Comments: BOTH EYES (DME) Shower Chair Misc See Rx Instructions .Route Qty: 1 0RF Rx Instructions: As directed acetaminophen 500 mg tablet 1,000 mg PO TID PRN (Reason: arthritis ) Label Comments: takes everyday for arthritis - 2 IN THE MORNING, 1 IN THE AFTERNOON AND 2 AT BEDTIME aspirin 81 mg Tablet,Chewable 81 mg PO QAM docusate sodium 100 mg Tablet 100 mg PO QAM nitroglycerin 0.4 mg tablet, sublingual 0.4 mg Sublingual Q5M PRN (Reason: chest pain) Label Comments: HAVEN'T TAKEN IT FOR YRS, DO CARRY IT WITH ME multivitamin Tablet 1 tab PO QAM cholecalciferol (vitamin D3) [Vitamin D3] 1,000 unit tablet 2,000 unit PO QAM isosorbide mononitrate 60 mg tablet extended release 24 hr 120 mg PO QAM Qty: 180 3RF Discontinued clopidogrel [Plavix] 75 mg Tablet 75 mg PO DAILY Brilinta 90 mg Tablet 90 mg PO DAILY Discharge Orders: Discharge Order (Routine); Ordered 01/21/22 Ordered By: Nancy Calero Admission Data Admit Date/Time: 01/20/22 07:29 Attending Provider: Lexx Knox Admit Provider: Lexx Knox Primary Care Provider: Gennaro Cedeno Other Providers: Lebron Larkin ; Lex Pennington ; Rafael Elaine ; Phil Justice ; Jimmy Garcia ; Duncan Perez ; Anju Rodriguez ; Vel Koenig ; Prema Taylor
--- NOTE | 2022-01-21 09:14 | Billing Data ---
Date of Service January 21, 2022 Coding Level of Care Code 75320 Subseq Hosp Care Lvl 2
== END 2022-01-21 10:20 | disposition home or self-care (01) | DRG 36 ==
LOC: ASU 06:02 → 1E 07:29
PROC: EV.TCAR (2022-01-20 08:00)